=== PATIENT | female | born 1955 | race Caucasian/White ===

== ENCOUNTER 2016-08-29 11:08 | Inpatient (IN) | payer OTHER ==
[2016-08-29] MEDS ORDERED: IPRATROPIUM 0.5 MG/2.5 ML NEBU INHALATION STA (11:23)
[2016-08-29] MEDS ORDERED: ALBUTEROL NEBULIZED 2.5 MG/3 ML INHALATION STA (11:23)
[2016-08-29 12:07] LABS: Aty Lym Flag Slight; CH 31.4; CHCM 33.7; HCT 48.2 % (34.0-46.0); HDW 2.65; MCH 31.2 pg (25.0-35.0); MCHC 33.3 g/dL (31.0-37.0); MCV 93.6 fL (80.0-100.0); Mean Platelet Volume 6.7; RBC 5.14 m/uL (3.80-5.40); RDW 14.1 % (11.5-15.5); WBC 8.1 k/uL (3.8-10.6); WBC (Perox) 7.78
[2016-08-29 12:18] LABS: ALT 43 U/L (9-52); AST 46 U/L (14-36); Alkaline Phosphatase 92 U/L (38-126); Anion Gap 10 mmol/L; Blood Urea Nitrogen 13 mg/dL (7-17); Calcium 8.8 mg/dL (8.4-10.2); Carbon Dioxide 33 mmol/L (22-30); Chloride 91 mmol/L (98-107); Glucose 93 mg/dL (74-99); Magnesium 1.7 mg/dL (1.6-2.3); Non-African American GFR(MDRD) >60 (>60 ml/min/1.73 sqM); Potassium 4.7 mmol/L (3.5-5.1); Sodium 134 mmol/L (137-145); Total Bilirubin 0.6 mg/dL (0.2-1.3); Total Protein 7.1 g/dL (6.3-8.2)
[2016-08-29 12:19] LABS: INR 1.1 (<1.1); Partial Thromboplastin Time 26.4 sec (22.0-30.0); Prothrombin Time 11.4 sec (9.0-12.0)
--- NOTE | 2016-08-29 12:31 | ED ---
General Adult HPI - General Chief complaint: Shortness of Breath Stated complaint: low oxygen level Time Seen by Provider: 08/29/16 11:23 Source: patient, RN notes reviewed, old records reviewed Mode of arrival: wheelchair Limitations: no limitations - History of Present Illness Initial comments: This is a 60-year-old female here for evaluation of severe shortness of breath cough congestion runny nose and congestion nose, patient has a history of smoking. Patient severely short of breath. Patient states he was seen both at work and outpatient care setting earlier today for evaluation of this issue and was found to be significant short of breath, patient denies any recent fevers, has cough and congestion. Aai for smoking denies medical history. And without chest pain at this time. No sick contacts or travel history, no recent hospitalization - Related Data Home Medications Medication Instructions Recorded Confirmed Cetirizine HCl [Zyrtec] 10 mg PO DAILY 08/29/16 08/29/16 EPINEPHrine (Auto Inject) [Epipen] 0.3 mg IM ONCE PRN 08/29/16 08/29/16 guaiFENesin-DM 100-10MG/5ML 5 ml PO Q8H PRN 08/29/16 08/29/16 [Robitussin DM] Allergies Allergy/AdvReac Type Severity Reaction Status Date / Time aspirin Allergy Anaphylaxis Verified 08/29/16 12:00 Review of Systems ROS Statement: Those systems with pertinent positive or pertinent negative responses have been documented in the HPI. ROS Other: All systems not noted in ROS Statement are negative. Past Medical History Additional Past Medical History / Comment(s): seasonal allergies History of Any Multi-Drug Resistant Organisms: None Reported Past Surgical History: Appendectomy, Cholecystectomy, Hysterectomy, Tonsillectomy Additional Past Surgical History / Comment(s): pelvic fusion Past Psychological History: No Psychological Hx Reported Smoking Status: Current every day smoker Past Alcohol Use History: Occasional Past Drug Use History: None Reported General Exam Limitations: no limitations General appearance: alert, anxious, in distress, cachectic Head exam: Present: atraumatic, normocephalic, normal inspection Eye exam: Present: normal appearance, PERRL, EOMI. Absent: scleral icterus, conjunctival injection, periorbital swelling ENT exam: Present: mucous membranes dry, mucous membranes moist Neck exam: Present: normal inspection. Absent: tenderness, meningismus, lymphadenopathy Respiratory exam: Present: normal lung sounds bilaterally, respiratory distress , wheezes, accessory muscle use, decreased breath sounds, prolonged expiratory. Absent: rales, rhonchi, stridor Cardiovascular Exam: Present: regular rate, normal rhythm, normal heart sounds. Absent: systolic murmur, diastolic murmur, rubs, gallop, clicks GI/Abdominal exam: Present: soft, normal bowel sounds. Absent: distended, tenderness, guarding, rebound, rigid Extremities exam: Present: normal inspection, full ROM, normal capillary refill. Absent: tenderness, pedal edema, joint swelling, calf tenderness Back exam: Present: normal inspection Neurological exam: Present: alert, oriented X3, CN II-XII intact Psychiatric exam: Present: normal affect, normal mood Skin exam: Present: warm, dry, intact, normal color. Absent: rash Course Vital Signs 08/29/16 08/29/16 08/29/16 11:14 11:45 12:06 Temperature 98.3 F Pulse Rate 85 87 Respiratory 16 18 Rate Blood Pressure 148/77 O2 Sat by Pulse 74 L 91 L Oximetry 08/29/16 08/29/16 08/29/16 12:23 12:57 12:59 Temperature Pulse Rate 82 92 80 Respiratory 22 Rate Blood Pressure 158/82 O2 Sat by Pulse 92 L Oximetry - Reevaluation(s) Reevaluation #1: 08/29/16 12:43 Patient was profoundly hard toxemic on arrival, improving with oxygen and prolonged breathing treatment EKG Findings - EKG Comments: EKG Findings:: EKG shows sinus rhythm rate of 84, IN 152, QRS 126, QTc 479 Medical Decision Making - Medical Decision Making 60 female deer preventions through shortness of breath, patient has long history of smoking no diagnosis of asthma or COPD, patient having severe COPD exacerbation at this time with hypoxia, patient also having a breast for infection signs and symptoms of sinusitis. Patient will be admitted for IV steroids, breathing treatments and resuscitation. Monitoring of pulse ox - Lab Data Result diagrams: 08/29/16 11:35 08/29/16 11:35 Lab Results 08/29/16 08/29/16 08/29/16 Range/Units 11:35 11:35 11:35 WBC 8.1 (3.8-10.6) k/uL RBC 5.14 (3.80-5.40) m/uL Hgb 16.0 (11.4-16.0) gm/dL Hct 48.2 H (34.0-46.0) % MCV 93.6 (80.0-100.0) fL MCH 31.2 (25.0-35.0) pg MCHC 33.3 (31.0-37.0) g/dL RDW 14.1 (11.5-15.5) % Plt Count 271 (150-450) k/uL Neutrophils % (Manual) 54.0 % Band Neutrophils % 9.0 % Lymphocytes % (Manual) 22.0 % Monocytes % (Manual) 15.0 % Neutrophils # (Manual) 5.1 (1.3-7.7) k/uL Lymphocytes # (Manual) 1.8 (1.0-4.8) k/uL Monocytes # (Manual) 1.2 H (0-1.0) k/uL Nucleated RBCs 0 (0-0) /100 WBC Manual Slide Review Performed Toxic Granulation Present Poikilocytosis (manual Present PT (9.0-12.0) sec INR (<1.1) APTT (22.0-30.0) sec D-Dimer (<0.60) mg/L FEU Methemoglobin (0.0-1.5) % Sodium 134 L (137-145) mmol/L Potassium 4.7 (3.5-5.1) mmol/L Chloride 91 L (98-107) mmol/L Carbon Dioxide 33 H (22-30) mmol/L Anion Gap 10 mmol/L BUN 13 (7-17) mg/dL Creatinine 0.51 L (0.52-1.04) mg/dL Est GFR (MDRD) Af Amer >60 (>60 ml/min/1.73 sqM) Est GFR (MDRD) Non-Af >60 (>60 ml/min/1.73 sqM) Glucose 93 (74-99) mg/dL Plasma Lactic Acid Aaron (0.7-2.0) mmol/L Calcium 8.8 (8.4-10.2) mg/dL Magnesium 1.7 (1.6-2.3) mg/dL Total Bilirubin 0.6 (0.2-1.3) mg/dL AST 46 H (14-36) U/L ALT 43 (9-52) U/L Alkaline Phosphatase 92 (38-126) U/L Total Creatine Kinase 83 (30-135) U/L CK-MB (CK-2) 4.9 H* (0.0-2.4) ng/mL CK-MB (CK-2) Rel Index 5.9 Troponin I 0.027 (0.000-0.034) ng/mL NT-Pro-B Natriuret Pep pg/mL Total Protein 7.1 (6.3-8.2) g/dL Albumin 3.9 (3.5-5.0) g/dL 08/29/16 08/29/16 08/29/16 Range/Units 11:35 11:35 11:35 WBC (3.8-10.6) k/uL RBC (3.80-5.40) m/uL Hgb (11.4-16.0) gm/dL Hct (34.0-46.0) % MCV (80.0-100.0) fL MCH (25.0-35.0) pg MCHC (31.0-37.0) g/dL RDW (11.5-15.5) % Plt Count (150-450) k/uL Neutrophils % (Manual) % Band Neutrophils % % Lymphocytes % (Manual) % Monocytes % (Manual) % Neutrophils # (Manual) (1.3-7.7) k/uL Lymphocytes # (Manual) (1.0-4.8) k/uL Monocytes # (Manual) (0-1.0) k/uL Nucleated RBCs (0-0) /100 WBC Manual Slide Review Toxic Granulation Poikilocytosis (manual PT 11.4 (9.0-12.0) sec INR 1.1 (<1.1) APTT 26.4 (22.0-30.0) sec D-Dimer 0.33 (<0.60) mg/L FEU Methemoglobin (0.0-1.5) % Sodium (137-145) mmol/L Potassium (3.5-5.1) mmol/L Chloride (98-107) mmol/L Carbon Dioxide (22-30) mmol/L Anion Gap mmol/L BUN (7-17) mg/dL Creatinine (0.52-1.04) mg/dL Est GFR (MDRD) Af Amer (>60 ml/min/1.73 sqM) Est GFR (MDRD) Non-Af (>60 ml/min/1.73 sqM) Glucose (74-99) mg/dL Plasma Lactic Acid Aaron 1.1 (0.7-2.0) mmol/L Calcium (8.4-10.2) mg/dL Magnesium (1.6-2.3) mg/dL Total Bilirubin (0.2-1.3) mg/dL AST (14-36) U/L ALT (9-52) U/L Alkaline Phosphatase (38-126) U/L Total Creatine Kinase (30-135) U/L CK-MB (CK-2) (0.0-2.4) ng/mL CK-MB (CK-2) Rel Index Troponin I (0.000-0.034) ng/mL NT-Pro-B Natriuret Pep 1440 pg/mL Total Protein (6.3-8.2) g/dL Albumin (3.5-5.0) g/dL 08/29/16 Range/Units 12:10 WBC (3.8-10.6) k/uL RBC (3.80-5.40) m/uL Hgb (11.4-16.0) gm/dL Hct (34.0-46.0) % MCV (80.0-100.0) fL MCH (25.0-35.0) pg MCHC (31.0-37.0) g/dL RDW (11.5-15.5) % Plt Count (150-450) k/uL Neutrophils % (Manual) % Band Neutrophils % % Lymphocytes % (Manual) % Monocytes % (Manual) % Neutrophils # (Manual) (1.3-7.7) k/uL Lymphocytes # (Manual) (1.0-4.8) k/uL Monocytes # (Manual) (0-1.0) k/uL Nucleated RBCs (0-0) /100 WBC Manual Slide Review Toxic Granulation Poikilocytosis (manual PT (9.0-12.0) sec INR (<1.1) APTT (22.0-30.0) sec D-Dimer (<0.60) mg/L FEU Methemoglobin 0.5 (0.0-1.5) % Sodium (137-145) mmol/L Potassium (3.5-5.1) mmol/L Chloride (98-107) mmol/L Carbon Dioxide (22-30) mmol/L Anion Gap mmol/L BUN (7-17) mg/dL Creatinine (0.52-1.04) mg/dL Est GFR (MDRD) Af Amer (>60 ml/min/1.73 sqM) Est GFR (MDRD) Non-Af (>60 ml/min/1.73 sqM) Glucose (74-99) mg/dL Plasma Lactic Acid Aaron (0.7-2.0) mmol/L Calcium (8.4-10.2) mg/dL Magnesium (1.6-2.3) mg/dL Total Bilirubin (0.2-1.3) mg/dL AST (14-36) U/L ALT (9-52) U/L Alkaline Phosphatase (38-126) U/L Total Creatine Kinase (30-135) U/L CK-MB (CK-2) (0.0-2.4) ng/mL CK-MB (CK-2) Rel Index Troponin I (0.000-0.034) ng/mL NT-Pro-B Natriuret Pep pg/mL Total Protein (6.3-8.2) g/dL Albumin (3.5-5.0) g/dL Critical Care Time Critical Care Time: Yes Total Critical Care Time: 31 Disposition Clinical Impression: Acute exacerbation of chronic obstructive airways disease, Hypoxia, Community acquired pneumonia Disposition: ADMITTED IP TO THIS HOSP Condition: Fair
[2016-08-29] MEDS ORDERED: methylPREDNISolone SOD SUCCI 125 MG/2 ML VIAL IV STA (12:41)
[2016-08-29 12:43] LABS: Add Differential Manual Differential
[2016-08-29 12:45] LABS: Manual Review Performed; Nucleated Red Blood Cells 0 /100 WBC (0-0); Total Cells Counted 100
[2016-08-29 12:46] LABS: Toxic Granulation Present; Troponin I 0.027 ng/mL (0.000-0.034)
[2016-08-29] MEDS: SODIUM CHLORIDE 0.9% 1,000 ML IV SCH (12:55)
[2016-08-29 13:00] LABS: Creatine Kinase MB 4.9 ng/mL (0.0-2.4)
--- NOTE | 2016-08-29 13:17 | XR ---
EXAMINATION TYPE: XR chest 2V DATE OF EXAM: 08/29/2016 1:05 PM COMPARISON: NONE TECHNIQUE: PA and lateral views submitted. HISTORY: difficulty breathing FINDINGS: The lungs are clear and there is no pneumothorax, pleural effusion, or focal pneumonia. Mild cardiom egaly and interstitial pattern noted. Subsegmental linear changes at the right lung base. Hyperinflat ion suggests COPD. Degenerative change of the spine noted. Curvature of the spine noted. IMPRESSION: 1. COPD with central interstitial pattern. Correlate for venous congestion versus interstitial pneumo nitis or atypical pneumonia. 2. Right basilar subsegmental atelectasis or early infiltrate..
[2016-08-29] MEDS ORDERED: AZITHROMYCIN 500 MG in SODIUM CHLORIDE 0.9% 250 ML IVPB STA (13:27)
[2016-08-29] MEDS ORDERED: LORazepam 2 MG/ML SYRINGE IV PRN (14:58)
[2016-08-29] MEDS ORDERED: HYDROmorphone 1 MG/ML 1 ML SYRINGE IVP PRN (15:24)
[2016-08-29] MEDS ORDERED: TEMAZEPAM 15 MG CAP PO PRN (15:24)
[2016-08-29] MEDS: PANTOPRAZOLE 40 MG TABLET PO SCH (16:02)
[2016-08-29] MEDS: NICOTINE 21MG/24HR PATCH TRANSDERM SCH (16:02)
[2016-08-29 17:10] LABS: Glucose,Whole Blood 196 mg/dL (75-99)
[2016-08-29] MEDS: IPRATROPIUM-ALBUTEROL 3 ML NEB INHALATION SCH ×2 (17:27→20:31)
[2016-08-29] MEDS: methylPREDNISolone SOD SUCCI 125 MG/2 ML VIAL IV SCH ×2 (18:09→23:06)
[2016-08-29] MEDS: INSULIN LISPRO (humaLOG) 300 UNIT/3 ML VIAL SQ SCH ×2 (18:09→21:51)
--- NOTE | 2016-08-29 18:10 | HP ---
DATE OF ADMISSION: 08/29/2016 CHIEF COMPLAINTS: Shortness of breath and cough and sputum. HISTORY OF PRESENT ILLNESS: This 60-year-old woman with a past medical history of seasonal allergies, history of a work-related accident, history of appendectomy, hysterectomy, history of pelvic fusion, history of nicotine dependence, history of ethanol, according to the family was not being followed by any primary physician in the outpatient setting. The patient was not feeling well over the past several days, with increasing cough and congestion. [facility]. Because of lack of improvement, patient came to [facility]. Bilateral pneumonia was suspected. On evaluation she was found to be hypoxic with features of hypoxic respiratory failure. Pulse ox was found to be 94% on room air. Patient was admitted for further evaluation and treatment. Patient is on partial non-rebreather at this time. There is no history of any fever, rigor, or chills. No history of any headache, loss of consciousness, seizures. PAST MEDICAL HISTORY: 1. History of seasonal allergies. 2. Appendectomy. 3. Hysterectomy. 4. History of nicotine dependence. 5. History of pelvic fusion. Medications prior to admission include: 1. Guaifenesin 5 mL p.o. q.8 p.r.n. 2. Epinephrine 0.3 p.r.n. 3. Zyrtec 10 mg p.o. daily. ALLERGIES: ASPIRIN. FAMILY HISTORY: History of diabetes mellitus and heart problems in the family. SOCIAL HISTORY: History of smoking. History of alcohol intake, as mentioned earlier; quit recently, according to the family. REVIEW OF SYSTEMS: ENT: No diminished hearing. No diminished vision. CARDIOVASCULAR SYSTEM: As mentioned earlier. RESPIRATORY SYSTEM: As mentioned earlier. GI: No nausea. : No dysuria. NERVOUS SYSTEM: No numbness or weakness. ALLERGY/IMMUNOLOGY: No asthma, hayfever. MUSCULOSKELETAL: As mentioned earlier. HEMATOLOGY/ONCOLOGY: No history of anemia. ENDOCRINE: No history of diabetes, hypothyroidism. CONSTITUTIONAL: As mentioned earlier. DERMATOLOGY: Negative. RHEUMATOLOGY: Negative. PSYCHIATRY: As mentioned earlier. PHYSICAL EXAMINATION: Patient is alert and oriented x3. Pulse is 87. Blood pressure is 148/77, respiration 16, temperature 98.3, pulse ox 75% on room air, improved to 91% on 4 L. HEENT: Conjunctivae normal. Oral mucosa moist. NECK: No jugular venous distention. No carotid bruit. No lymph node enlargement. CARDIOVASCULAR SYSTEM: S1, S2 muffled. No S3. No S4. RESPIRATORY: Breath sounds diminished at the bases. Bilateral scattered rhonchi and a few crackles. Expiratory wheezing and prolongation also present. ABDOMEN: Soft, nontender. No mass palpable. LEGS: No edema. No swelling. NERVOUS SYSTEM: Higher functions as mentioned earlier. Moves all 4 limbs. No focal motor or sensory deficit. LYMPHATICS: No lymph node palpable in neck, axillae or groin. SKIN: No ulcer, rash, bleeding. Chest x-ray reviewed personally. LABS: CBC noted. Sodium 134. CK-MB is 49. NT-proBNP is 1440. ASSESSMENT: 1. Chronic obstructive pulmonary disease, acute exacerbation, with acute bilateral pneumonia, possibly interstitial bilateral pneumonia with acute hypoxic hypercarbic respiratory failure with possible sepsis, present on admission, on non-rebreather mask. 2. Increased NT-proBNP. 3. Rule out congestive heart failure. 4. History of ethanol. 5. History of nicotine dependence. 6. Hyponatremia. 7. Increased carbon dioxide. 8. History of seasonal allergies. 9. History of degenerative joint disease. 10. History of pelvic fusion. RECOMMENDATIONS AND DISCUSSION: In this 60-year-old woman who presented with multiple complex medical issues, we will monitor the patient closely. I would recommend broad-spectrum IV antibiotics, bronchodilators, DVT prophylaxis, empiric antibiotics, CIWA protocol, IV steroids. Monitor blood sugars closely. Closely follow with Dr. Figueredo. Prognosis guarded because of multiple complex medical issues. Smoking and ethanol cessation has been recommended. Discussed with the family, who understands and agrees. Further recommendations to follow. I would also recommend that the patient follow up with a primary physician closely. Patient understands.
[2016-08-29 21:31] LABS: Glucose,Whole Blood 114 mg/dL (75-99)
[2016-08-29 22:02] LABS: Hemoglobin A1C 5.9 % (4.2-6.1)
[2016-08-30] MEDS: SODIUM CHLORIDE 0.9% 1,000 ML IV SCH (06:10)
[2016-08-30] MEDS: methylPREDNISolone SOD SUCCI 125 MG/2 ML VIAL IV SCH ×3 (06:10→17:28)
[2016-08-30 07:09] LABS: Glucose,Whole Blood 136 mg/dL (75-99)
[2016-08-30 07:50] LABS: Basophils # (A) 0.1 k/uL (0-0.2); Basophils % (A) 1 %; CHCM 32.5; Eosinophils % (A) 0 %; HCT 48.2 % (34.0-46.0); HDW 2.62; HGB 15.5 gm/dL (11.4-16.0); Luc # (Auto) 0.11; Luc % (Auto) 2; Lymphocytes # (A) 0.7 k/uL (1.0-4.8); Lymphocytes % (A) 12 %; MCH 30.9 pg (25.0-35.0); MCHC 32.2 g/dL (31.0-37.0); Mean Platelet Volume 7.2; Monocytes # (A) 0.3 k/uL (0-1.0); Monocytes % (A) 5 %; Neutrophils # (A) 4.6 k/uL (1.3-7.7); Neutrophils % (A) 80 %; RBC 5.02 m/uL (3.80-5.40); RDW 14.2 % (11.5-15.5); WBC 5.7 k/uL (3.8-10.6)
[2016-08-30 08:02] LABS: Anion Gap 8 mmol/L; Blood Urea Nitrogen 10 mg/dL (7-17); Carbon Dioxide 33 mmol/L (22-30); Chloride 97 mmol/L (98-107); Glucose 122 mg/dL (74-99); Non-African American GFR(MDRD) >60 (>60 ml/min/1.73 sqM); Potassium 5.6 mmol/L (3.5-5.1); Sodium 138 mmol/L (137-145)
[2016-08-30] MEDS: INSULIN LISPRO (humaLOG) 300 UNIT/3 ML VIAL SQ SCH ×4 (08:18→21:25)
[2016-08-30] MEDS: PANTOPRAZOLE 40 MG TABLET PO SCH (08:19)
[2016-08-30] MEDS: ENOXAPARIN 40 MG/0.4 ML SYRINGE SQ SCH (08:19)
[2016-08-30] MEDS: NICOTINE 21MG/24HR PATCH TRANSDERM SCH (08:20)
[2016-08-30] MEDS: IPRATROPIUM-ALBUTEROL 3 ML NEB INHALATION SCH ×4 (08:47→19:37)
[2016-08-30] MEDS ORDERED: cefTRIAXone 1,000 MG in SODIUM CHLORIDE 0.9% 100 ML IVPB SCH (09:00)
[2016-08-30 11:30] VITALS: BMI 20.9
--- NOTE | 2016-08-30 11:40 | P.CNPUL ---
History of Present Illness Consult date: 08/30/16 Requesting physician: Soledad Estrada Reason for consult: abnormal CXR/CT Chief complaint: Shortness of breath, cough, congestion History of present illness: This is a very pleasant 60-year-old female patient with no current primary care physician. She has a history of seasonal ALLERGIES. She also has chronic and ongoing nicotine addiction of greater than 40 years at 1 pack per day along with excessive alcohol intake. She has no prior diagnosis of COPD and has not been on any inhalers and she has not been seen by a director of financial aid in the past. She presented here with a several day history of increasing shortness of breath , cough and congestion. She was seen in urgent care and treated without significant improvement and was presented here to the emergency room yesterday for the same. Her chest x-ray did reveal evidence of possible early infiltrate of the right lower lobe as well as evidence of chronic obstructive pulmonary disease, there is also some mild pulmonary venous congestion. She was quite hypoxic with an O2 saturation of 74% on room air. She did require a nonrebreather mask and subsequent 15 L of high flow nasal cannula to maintain O2 saturations in the 90s. There is no leukocytosis. Her T-max was 99.3. Influenza screen was negative. ProBNP 1440. D-dimer 0.33. She has been initiated on ceftriaxone and azithromycin along with DuoNeb inhalations 4 times a day and when necessary. She was started on IV Solu-Medrol. She is seen today in consultation on the regular medical floor. She is awake and alert in no acute distress. She states she is breathing easier today as compared to yesterday. She is currently on 6 L of high flow nasal cannula to maintain O2 saturations in the 90s. She has a loose nonproductive cough. No chills or night sweats. Review of Systems 14 point review of systems was conducted. All negative other than as mentioned in HPI. Past Medical History Additional Past Medical History / Comment(s): seasonal allergies, past work related accident with fx pelvis with sx and fractures in R arm and R hand. History of Any Multi-Drug Resistant Organisms: None Reported Past Surgical History: Appendectomy, Hysterectomy Additional Past Surgical History / Comment(s): pelvic fusion-ledbetter and 11 screws , 5 D&Cs, inverted uterus with childbirth-hysterectomy. Past Psychological History: No Psychological Hx Reported Additional Psychological History / Comment(s): Pt resides with significant other. She uses no assistive device. She does not drive, her significant other or [id number] drive her. Smoking Status: Current every day smoker Past Alcohol Use History: Occasional Additional Past Alcohol Use History / Comment(s): Pt states she started smoking in 1968 and is a ppd smoker. She states she used to drink alcohol heavily in the past but now drinks occasionally. Past Drug Use History: None Reported - Past Family History Father Family Medical History: Diabetes Mellitus Additional Family Medical History / Comment(s): Heart problems. Mother Family Medical History: Chest Pain / Angina Additional Family Medical History / Comment(s): caratid artery dx, back problems. Medications and Allergies Home Medications Medication Instructions Recorded Confirmed Type Cetirizine HCl [Zyrtec] 10 mg PO DAILY 08/29/16 08/29/16 History EPINEPHrine (Auto Inject) [Epipen] 0.3 mg IM ONCE PRN 08/29/16 08/29/16 History guaiFENesin-DM 100-10MG/5ML 5 ml PO Q8H PRN 08/29/16 08/29/16 History [Robitussin DM] Allergies Allergy/AdvReac Type Severity Reaction Status Date / Time aspirin Allergy Anaphylaxis Verified 08/29/16 12:00 Physical Exam Vitals: Vital Signs Temp Pulse Pulse Resp BP BP Pulse Ox 08/30/16 07:00 98.8 F 83 24 141/88 93 L 08/30/16 02:29 141/87 08/29/16 23:00 97.9 F 88 20 91 L 08/29/16 20:45 87 08/29/16 20:33 87 08/29/16 17:26 93 L 08/29/16 15:34 98.5 F 102 H 20 154/74 97 08/29/16 14:25 102 H 20 08/29/16 13:50 99.0 F 92 24 143/87 83 L 08/29/16 12:59 80 08/29/16 12:57 92 22 158/82 92 L Intake and Output 08/29/16 08/30/16 08/30/16 22:59 06:59 14:59 Intake Total 200 720 Balance 200 720 Intake: IV 720 Sodium Chloride 0.9% 1, 720 000 ml @ 60 mls/hr IV . [id number] [facility] Rx#:[id number] Oral 200 Other: Voiding Method Toilet # Voids 3 GENERAL EXAM: Alert, active, comfortable in no apparent distress. HEAD: Normocephalic. EYES: Normal reaction of pupils, equal size. NOSE: Clear with pink turbinates. THROAT: No erythema or exudates. NECK: No masses, no JVD. CHEST: No chest wall deformity. LUNGS: Equal air entry with bilateral end expiratory wheeze, crackles in the right posterior base, diminished throughout. CVS: S1 and S2 normal with no audible mumurs, regular rhythm. ABDOMEN: No hepatosplenomegaly, normal bowel sounds, no guarding or rigidity. SPINE: No scoliosis or deformity SKIN: No rashes CENTRAL NERVOUS SYSTEM: No focal deficits, tone is normal in all 4 extremities. Extremities: There is no peripheral edema. No clubbing, no cyanosis. Peripheral pulses are intact. Results - Laboratory Findings CBC and BMP: 08/30/16 07:22 08/30/16 07:22 PT/INR, D-dimer PT 11.4 sec (9.0-12.0) 08/29/16 11:35 INR 1.1 (<1.1) 08/29/16 11:35 D-Dimer 0.33 mg/L FEU (<0.60) 08/29/16 11:35 Abnormal lab findings: Abnormal Labs 08/29/16 08/29/16 08/30/16 17:08 21:24 07:08 Hct Lymphocytes # Potassium Chloride Carbon Dioxide Glucose POC Glucose (mg/dL) 196 H 114 H 136 H 08/30/16 08/30/16 07:22 07:22 Hct 48.2 H Lymphocytes # 0.7 L Potassium 5.6 H Chloride 97 L Carbon Dioxide 33 H Glucose 122 H POC Glucose (mg/dL) - Diagnostic Findings Chest x-ray: image reviewed Assessment and Plan Plan: Impression: #1 Acute hypoxic respiratory failure secondary to an acute exacerbation of chronic obstructive pulmonary disease and possible acute exacerbation of diastolic congestive heart failure and possible early right lower lobe immunity acquired pneumonia. #2 Chronic and ongoing tobacco dependence. #3 History of seasonal environmental ALLERGIES. #4 History of alcohol abuse. Plan: The patient was seen and evaluated by Dr. Figueredo. Her chest x-ray and labs were reviewed. We will continue with her current medications including bronchodilators 4 times a day and when necessary. We will add Pulmicort inhalations twice a day. We'll continue with IV Solu-Medrol. She remains on antibiotics in the parents form of ceftriaxone and azithromycin. We will continue to titrate down the FiO2 while maintaining O2 saturations greater than 90%. We'll obtain a echocardiogram and possibly initiate some diuretics. She remains on Lovenox for DVT prophylaxis and Protonix for GI prophylaxis. She is educated regarding the importance of complete smoking cessation. A NicoDerm patch has been applied. She is also educated regarding the importance of alcohol cessation. The CIWA protocol remains in place. We will repeat her chest x-ray in the a.m. We'll continue to follow make further recommendations based on her clinical status. Time with Patient: Greater than 30
[2016-08-30] MEDS ORDERED: FUROSEMIDE 10 MG/ML 4 ML VIAL IV STA (11:45)
[2016-08-30] MEDS ORDERED: SODIUM POLYSTYRENE SULFONATE 15 GM/60 ML BOTTLE PO STA (12:04)
[2016-08-30] MEDS: AZITHROMYCIN 500 MG in SODIUM CHLORIDE 0.9% 250 ML IVPB SCH (12:05)
[2016-08-30 12:18] LABS: Glucose,Whole Blood 126 mg/dL (75-99)
[2016-08-30] MEDS: LORazepam 2 MG/ML SYRINGE IV PRN ×3 (13:54→21:23)
[2016-08-30] MEDS: HYDROcodone/APAP 5-325MG 1 EACH TAB PO PRN (13:55)
--- NOTE | 2016-08-30 15:11 | CT ---
EXAMINATION TYPE: CT chest wo con DATE OF EXAM: 08/30/2016 2:53 PM COMPARISON: Chest x-ray from yesterday HISTORY: COPD and ILD per order. Admitted for difficulty in breathing yesterday. CT DLP: 136.3 mGycm. Automated Exposure Control for Dose Reduction was Utilized. TECHNIQUE: CT scan of the thorax is performed without IV contrast. FINDINGS: LUNGS: There is background of mild to moderate diffuse emphysematous change most pronounced in the ap ices. There are ill-defined reticulonodular opacities in the bilateral lower lungs. No suspicious par enchymal nodule or mass is present bilaterally. No pleural effusion or pneumothorax is noted. No bron chiectasis is identified. There is some additional linear scarring or atelectasis in both lung bases posteriorly. No suspicious peripheral reticulation or fibrosis is clearly seen. Some linear scarring anteriorly in the right middle lobe is noted near axial image 35. MEDIASTINUM: Lack of IV contrast is noted to limit evaluation for mediastinal and especially hilar ad enopathy. There are no definitive greater than 1 cm hilar or mediastinal lymph nodes. Heart size is u pper limits of normal. No significant pericardial effusion is seen. Coronary artery calcification is noted. There is mild to moderate calcified atherosclerotic change of the aorta. OTHER: Slight S-shaped scoliotic curvature is present. IMPRESSION: Mild underlying emphysematous change with bibasilar reticulonodular opacities worrisome f or acute infectious process differential includes hypersensitivity pneumonitis among the broad differ ential, clinical correlation advised.
[2016-08-30 17:25] LABS: Glucose,Whole Blood 206 mg/dL (75-99)
[2016-08-30] MEDS: BUDESONIDE 1 MG/2 ML NEBU INHALATION SCH (19:37)
[2016-08-30 20:57] LABS: Glucose,Whole Blood 169 mg/dL (75-99)
[2016-08-31] MEDS: MONTELUKAST 10 MG TAB PO SCH ×2 (01:54→20:12)
[2016-08-31] MEDS: methylPREDNISolone SOD SUCCI 125 MG/2 ML VIAL IV SCH ×4 (01:54→17:54)
[2016-08-31] MEDS: SODIUM CHLORIDE 0.9% 1,000 ML IV SCH ×2 (01:56→17:59)
[2016-08-31 07:27] LABS: Glucose,Whole Blood 143 mg/dL (75-99)
[2016-08-31] MEDS: INSULIN LISPRO (humaLOG) 300 UNIT/3 ML VIAL SQ SCH ×4 (07:55→21:27)
[2016-08-31] MEDS: ENOXAPARIN 40 MG/0.4 ML SYRINGE SQ SCH (07:55)
[2016-08-31] MEDS: PANTOPRAZOLE 40 MG TABLET PO SCH (07:55)
[2016-08-31] MEDS: NICOTINE 21MG/24HR PATCH TRANSDERM SCH (07:56)
[2016-08-31] MEDS: IPRATROPIUM-ALBUTEROL 3 ML NEB INHALATION SCH ×4 (08:00→20:04)
[2016-08-31] MEDS: BUDESONIDE 1 MG/2 ML NEBU INHALATION SCH ×2 (08:00→20:04)
[2016-08-31] MEDS: HYDROcodone/APAP 5-325MG 1 EACH TAB PO PRN ×2 (08:31→21:47)
[2016-08-31] MEDS: LORazepam 2 MG/ML SYRINGE IV PRN ×3 (08:32→21:53)
--- NOTE | 2016-08-31 09:21 | PN ---
DATE OF SERVICE: 08/30/2016 This is a 60-year-old woman who was admitted with COPD, acute exacerbation with acute bilateral pneumonia, possibly also had interstitial pneumonia. Seen and evaluated the patient with the nurse practitioner. Please refer to the nurse practitioner's notes and impression document as ascribed for further information. A chest CT has been ordered by Pulmonary and further recommendations to follow.
[2016-08-31 09:39] LABS: Basophils % (A) 0 %; CH 31.2; CHCM 32.1; Eosinophils % (A) 0 %; HCT 46.3 % (34.0-46.0); HGB 14.8 gm/dL (11.4-16.0); Luc # (Auto) 0.05; Luc % (Auto) 1; Lymphocytes # (A) 0.4 k/uL (1.0-4.8); Lymphocytes % (A) 4 %; MCH 31.3 pg (25.0-35.0); MCV 97.8 fL (80.0-100.0); Mean Platelet Volume 7.4; Monocytes # (A) 0.3 k/uL (0-1.0); Monocytes % (A) 3 %; Neutrophils # (A) 9.7 k/uL (1.3-7.7); Neutrophils % (A) 93 %; RBC 4.73 m/uL (3.80-5.40); RDW 14.2 % (11.5-15.5); WBC 10.4 k/uL (3.8-10.6); WBC (Perox) 11.21
[2016-08-31 09:53] LABS: Anion Gap 10 mmol/L; Blood Urea Nitrogen 16 mg/dL (7-17); Calcium 8.8 mg/dL (8.4-10.2); Carbon Dioxide 34 mmol/L (22-30); Chloride 97 mmol/L (98-107); Glucose 225 mg/dL (74-99); Non-African American GFR(MDRD) >60 (>60 ml/min/1.73 sqM); Potassium 3.8 mmol/L (3.5-5.1); Sodium 141 mmol/L (137-145)
[2016-08-31] MEDS: AZITHROMYCIN 500 MG in SODIUM CHLORIDE 0.9% 250 ML IVPB SCH (11:08)
[2016-08-31 11:50] LABS: Glucose,Whole Blood 186 mg/dL (75-99)
[2016-08-31] MEDS: guaiFENesin-DM 100-10MG/5ML 10 ML CUP PO PRN ×2 (11:50→18:31)
--- NOTE | 2016-08-31 11:53 | ECHOF ---
Referral Reason:CHF MEASUREMENTS -------- HEIGHT: 129.5 cm WEIGHT: 47.2 kg BP: IVSd: 1.2 cm (0.6 - 1.1) LVIDd: 3.7 cm (3.9 - 5.3) LVPWd: 1.1 cm (0.6 - 1.1) IVSs: 1.4 cm LVIDs: 2.3 cm LVPWs: 1.4 cm LAESV Index (A-L): 28.11 ml/m Ao Diam: 2.8 cm (2.0 - 3.7) AV Cusp: 1.5 cm (1.5 - 2.6) LA Diam: 3.2 cm (2.7 - 3.8) MV EXCURSION: 17.354 mm (> 18.000) MV EF SLOPE: 106 mm/s (70 - 150) EPSS: 0.1 cm MV E Jackson: 0.98 m/s MV DecT: 217 ms MV A Jackson: 0.85 m/s MV E/A Ratio: 1.15 AV maxP.56 mmHg AV meanP.82 mmHg RAP: 5.00 mmHg RVSP: 31.97 mmHg FINDINGS -------- Sinus rhythm with extra systolic beats. This was a technically good study. The left ventricular size is normal. There is mild concentric left ventricular hypertrophy. Overall left ventricular systolic function is normal with, an EF between 55 - 60 %. The right ventricle is normal in size and function. LA is midly dilated 29-33ml/m2. The right atrium is normal in size. Aneurysmal Interatrial septum. Aortic valve is trileaflet and is mildly thickened. There is mild aortic stenosis present. Peak/mean gradient across the Aortic Valve is 19.56mmHg / 10.82mmHg. The mitral valve is normal. Moderate mitral regurgitation is present. [id number] tricuspid regurgitation present. The right ventricular systolic pressure, as measured by Doppler, is 31.97mmHg. Trace/mild (physiologic) pulmonic regurgitation. The aortic root size is normal. There is a trivial pericardial effusion present. CONCLUSIONS -------- 1. Sinus rhythm with extra systolic beats. 2. The right ventricular systolic pressure, as measured by Doppler, is 31.97mmHg. 3. Trace/mild (physiologic) pulmonic regurgitation. 4. The aortic root size is normal. 5. There is a trivial pericardial effusion present. 6. This was a technically good study. 7. There is mild concentric left ventricular hypertrophy. 8. Overall left ventricular systolic function is normal with, an EF between 55 - 60 %. 9. LA is midly dilated 29-33ml/m2. 10. Aneurysmal Interatrial septum. 11. Aortic valve is trileaflet and is mildly thickened. 12. There is mild aortic stenosis present. 13. Peak/mean gradient across the Aortic Valve is 19.56mmHg / 10.82mmHg. MANUFACTURING EXECUTIVE: Corine Morris RDCS
--- NOTE | 2016-08-31 14:06 | P.PN ---
Subjective Principal diagnosis: Acute COPD exacerbation This is a very pleasant 60-year-old female patient with no current primary care physician. She has a history of seasonal ALLERGIES. She also has chronic and ongoing nicotine addiction of greater than 40 years at 1 pack per day along with excessive alcohol intake. She has no prior diagnosis of COPD and has not been on any inhalers and she has not been seen by a human services professional in the past. She presented here with a several day history of increasing shortness of breath , cough and congestion. She was seen in urgent care and treated without significant improvement and was presented here to the emergency room yesterday for the same. Her chest x-ray did reveal evidence of possible early infiltrate of the right lower lobe as well as evidence of chronic obstructive pulmonary disease, there is also some mild pulmonary venous congestion. She was quite hypoxic with an O2 saturation of 74% on room air. She did require a nonrebreather mask and subsequent 15 L of high flow nasal cannula to maintain O2 saturations in the 90s. There is no leukocytosis. Her T-max was 99.3. Influenza screen was negative. ProBNP 1440. D-dimer 0.33. She has been initiated on ceftriaxone and azithromycin along with DuoNeb inhalations 4 times a day and when necessary. She was started on IV Solu-Medrol. She is seen today in consultation on the regular medical floor. She is awake and alert in no acute distress. She states she is breathing easier today as compared to yesterday. She is currently on 6 L of high flow nasal cannula to maintain O2 saturations in the 90s. She has a loose nonproductive cough. No chills or night sweats. The patient is seen again today 08/31/2016 in follow-up. She is awake and alert in no acute distress. She does have some level of anxiety and there are still concerns regarding possible delirium tremens. She has been given Ativan which seems to be helping. her breathing is slightly improved today as compared to yesterday. A computed tomography scan revealed mild underlying emphysema changes with bibasilar reticulonodular opacities worrisome for acute infectious process including hypersensitivity pneumonitis. She does continue to require 6 L of high flow nasal cannula to maintain O2 saturations in the 90s. She's been afebrile. No leukocytosis. Objective - Vital Signs Vital signs: Vital Signs Temp 98.0 F 08/31/16 07:00 Pulse 84 08/31/16 11:40 Resp 18 08/31/16 07:00 BP 167/100 08/31/16 07:00 Pulse Ox 94 L 08/31/16 07:00 Intake & Output 08/30/16 08/31/16 08/31/16 18:59 06:59 18:59 Intake Total 250 400 Balance 250 400 Weight 47.174 kg Intake: Intake, IV Titration 250 Amount Azithromycin 500 mg In 250 Sodium Chloride 0.9% 250 ml @ 125 mls/hr IVPB Q24H [facility] Rx#:[id number] Oral 400 Other: Voiding Method Toilet # Voids 1 # Bowel Movements 0 - Exam GENERAL EXAM: Alert, comfortable in no apparent distress. HEAD: Normocephalic. EYES: Normal reaction of pupils, equal size. NOSE: Clear with pink turbinates. THROAT: No erythema or exudates. NECK: No masses, no JVD. CHEST: No chest wall deformity. LUNGS: Equal air entry with bilateral wheeze, crackles in the posterior bases, diminished. CVS: S1 and S2 normal with no audible murmurs, regular rhythm. ABDOMEN: No hepatosplenomegaly, normal bowel sounds, no guarding or rigidity. SPINE: No scoliosis or deformity SKIN: No rashes CENTRAL NERVOUS SYSTEM: No focal deficits, tone is normal in all 4 extremities. Extremities: There is no significant peripheral edema. No clubbing, no cyanosis. Peripheral pulses are intact. - Labs CBC & Chem 7: 08/31/16 09:13 08/31/16 09:13 Labs: Abnormal Lab Results - Last 24 Hours (Table) 08/30/16 08/30/16 08/31/16 Range/Units 17:20 20:53 07:25 Hct (34.0-46.0) % Neutrophils # (1.3-7.7) k/uL Lymphocytes # (1.0-4.8) k/uL Chloride (98-107) mmol/L Carbon Dioxide (22-30) mmol/L Creatinine (0.52-1.04) mg/dL Glucose (74-99) mg/dL POC Glucose (mg/dL) 206 H 169 H 143 H (75-99) mg/dL 08/31/16 08/31/16 08/31/16 Range/Units 09:13 09:13 11:48 Hct 46.3 H (34.0-46.0) % Neutrophils # 9.7 H (1.3-7.7) k/uL Lymphocytes # 0.4 L (1.0-4.8) k/uL Chloride 97 L (98-107) mmol/L Carbon Dioxide 34 H (22-30) mmol/L Creatinine 0.46 L (0.52-1.04) mg/dL Glucose 225 H (74-99) mg/dL POC Glucose (mg/dL) 186 H (75-99) mg/dL Assessment and Plan Plan: Impression: #1 Acute hypoxic respiratory failure secondary to an acute exacerbation of chronic obstructive pulmonary disease and ill-defined reticulonodular opacities in the bilateral lower lungs. #2 Chronic and ongoing tobacco dependence. #3 History of seasonal environmental ALLERGIES. #4 History of alcohol abuse. Plan: The patient was seen and evaluated by Dr. Figueredo. Her computed tomography scan was reviewed. We will continue with her current medications including bronchodilators 4 times a day and when necessary. We will continue Pulmicort inhalations twice a day. We'll continue with IV Solu-Medrol. She remains on antibiotics in the parents form of ceftriaxone and azithromycin. We will continue to titrate down the FiO2 while maintaining O2 saturations greater than 90%. She remains on Lovenox for DVT prophylaxis and Protonix for GI prophylaxis. She is again educated regarding the importance of complete smoking cessation. A NicoDerm patch has been applied. She is again educated regarding the importance of alcohol cessation. The CIWA protocol remains in place. We'll continue to follow make further recommendations based on her clinical status.
[2016-08-31 16:56] LABS: Glucose,Whole Blood 99 mg/dL (75-99)
--- NOTE | 2016-08-31 17:09 | P.PN ---
Subjective date of service 08/30/2016. Progress note being dictated for Dr. Estrada. Interval history: This is a 60-year-old female in a with acute COPD exacerbation , acute bilateral pneumonia, interstitial pneumonia, and multiple other medical issues. Negative for influenza . Maintained on IV steroids, nebulized bronchodilators, antibiotics and CIWA scale . Breathing improving, weaned down to 6 L from a nonrebreather that patient required the night. Audible wheezing, mostly nonproductive cough, occasional clear sputum production .Evaluated by pulmonary and chest CT ordered. CT reporting mild underlying emphysematous changes with bibasilar reticulonodular opacities, possible acute infectious process, possible hypersensitivity pneumonitis. Currently without signs or symptoms of early DTs, no anxiety, no agitation. Hyperkalemic, potassium 5.6. Denies chest pain, palpitations or increasing shortness of breath. Objective - Vital Signs Vital signs: Vital Signs Temp 97.4 F L 08/30/16 15:00 Pulse 84 08/30/16 19:57 Resp 20 08/30/16 16:00 BP 126/80 08/30/16 15:00 Pulse Ox 90 L 08/30/16 15:00 Intake & Output 08/30/16 08/30/16 08/31/16 06:59 18:59 06:59 Intake Total 920 250 200 Balance 920 250 200 Weight 47.174 kg Intake: IV 720 Sodium Chloride 0.9% 1, 720 000 ml @ 60 mls/hr IV . [id number] [facility] Rx#:[id number] Intake, IV Titration 250 Amount Azithromycin 500 mg In 250 Sodium Chloride 0.9% 250 ml @ 125 mls/hr IVPB Q24H [facility] Rx#:[id number] Oral 200 200 Other: Voiding Method Toilet Toilet # Voids 3 1 # Bowel Movements 0 - Exam PHYSICAL EXAM: VITAL SIGNS: [As above] GENERAL: [Sitting up in bed, no acute distress] HEENT: [Pupils equal conjunctiva normal.] NECK: [Supple, no JVD] RESPIRATORY EFFORT:[Increased] LUNGS: [expiratory wheezes throughout, fine bibasilar crackles. CARDIOVASCULAR[regular S1 and S2 with no murmurs rubs or gallops, no edema GI: [Abdomen soft, nontender, positive bowel sounds. No guarding, no rigidity] PSYCH: [Alert and oriented -3, mood and affect normal.] NEURO: [No focal deficits, moves all 4 extremities, strength and sensation intact] - Labs CBC & Chem 7: 08/31/16 09:13 08/31/16 09:13 Labs: Abnormal Lab Results - Last 24 Hours (Table) 08/30/16 08/30/16 08/30/16 Range/Units 07:08 07:22 07:22 Hct 48.2 H (34.0-46.0) % Lymphocytes # 0.7 L (1.0-4.8) k/uL Potassium 5.6 H (3.5-5.1) mmol/L Chloride 97 L (98-107) mmol/L Carbon Dioxide 33 H (22-30) mmol/L Glucose 122 H (74-99) mg/dL POC Glucose (mg/dL) 136 H (75-99) mg/dL 08/30/16 08/30/16 08/30/16 Range/Units 12:16 17:20 20:53 Hct (34.0-46.0) % Lymphocytes # (1.0-4.8) k/uL Potassium (3.5-5.1) mmol/L Chloride (98-107) mmol/L Carbon Dioxide (22-30) mmol/L Glucose (74-99) mg/dL POC Glucose (mg/dL) 126 H 206 H 169 H (75-99) mg/dL Assessment and Plan Plan: 1. [Acute COPD exacerbation with acute bilateral pneumonia, possibly interstitial bilateral pneumonia]. 2. [Acute hypoxic, hypercarbic respiratory failure with possible sepsis, required nonrebreather mask on admission]. 3. [Increased BNP, rule out CHF]. 4. [History of EtOH abuse,]. 5. [Ongoing Nicotine dependence]. 6. [Hyponatremia]. 7. [Increased CO2]. 8. Degenerative joint disease 9. Hyperkalemia Plan: Continue on current medication regime , IV steroids, nebulized bronchodilators, antibiotics ,monitoring and symptomatic treatment. Kayexalate ordered for hyperkalemia. Close monitoring of Accu-Cheks. Maintain CIWA protocol. ETOH and smoking cessation readdressed. GI and DVT prophylaxis in place. Follow closely with pulmonary. Further recommendations to follow. The impression and plan of care has been dictated as directed. : I performed a H&P examination of this patient and discussed the same with the dictator. I agree with the dictator's note. Any additional findings/opinions/ etc. will be noted.
--- NOTE | 2016-08-31 17:22 | P.PN ---
Subjective date of service 08/31/2016. Progress note being dictated for Dr. Estrada. Interval history: This is a 60-year-old female in a with acute COPD exacerbation , acute bilateral pneumonia, interstitial pneumonia, and multiple other medical issues. Negative for influenza . Continues on IV steroids, nebulized bronchodilators, antibiotics and CIWA scale . Maintaining O2 sats in the mid 90s on 6 L nasal cannula. Sensorium worsened, confused, delirious, early DTs. Yesterday Hyperkalemic, received Kayexalate with current potassium within normal limits. Denies chest pain, palpitations or increasing shortness of breath. Afebrile, WBC within normal limits. Objective - Vital Signs Vital signs: Vital Signs Temp 98.4 F 08/31/16 15:00 Pulse 104 H 08/31/16 16:30 Resp 18 08/31/16 15:00 BP 154/86 08/31/16 15:00 Pulse Ox 97 08/31/16 16:19 Intake & Output 08/30/16 08/31/16 08/31/16 18:59 06:59 18:59 Intake Total 250 400 300 Balance 250 400 300 Weight 47.174 kg 47.174 kg Intake: Intake, IV Titration 250 300 Amount Azithromycin 500 mg In 250 250 Sodium Chloride 0.9% 250 ml @ 125 mls/hr IVPB Q24H [facility] Rx#:[id number] cefTRIAXone 1,000 mg In 50 Sodium Chloride 0.9% 50 ml @ 100 mls/hr IVPB DAILY [facility] Rx#:[id number] Oral 400 Other: Voiding Method Toilet Toilet # Voids 1 1 # Bowel Movements 0 0 - Exam PHYSICAL EXAM: VITAL SIGNS: [As above] GENERAL: [Sitting up in bed, delirious, confused] HEENT: [Pupils equal conjunctiva normal.] NECK: [Supple, no JVD] RESPIRATORY EFFORT:[Increased] LUNGS: [Scattered rhonchi with expiratory wheezes throughout, fine bibasilar crackles. CARDIOVASCULAR[regular S1 and S2 with no murmurs rubs or gallops, no edema GI: [Abdomen soft, nontender, positive bowel sounds. No organomegaly, No guarding, no rigidity] PSYCH: [Alert and oriented -1-2, mood and affect normal.] NEURO: [No focal deficits, moves all 4 extremities, strength and sensation intact] - Labs CBC & Chem 7: 08/31/16 09:13 08/31/16 09:13 Labs: Abnormal Lab Results - Last 24 Hours (Table) 08/30/16 08/30/16 08/31/16 Range/Units 17:20 20:53 07:25 Hct (34.0-46.0) % Neutrophils # (1.3-7.7) k/uL Lymphocytes # (1.0-4.8) k/uL Chloride (98-107) mmol/L Carbon Dioxide (22-30) mmol/L Creatinine (0.52-1.04) mg/dL Glucose (74-99) mg/dL POC Glucose (mg/dL) 206 H 169 H 143 H (75-99) mg/dL 08/31/16 08/31/16 08/31/16 Range/Units 09:13 09:13 11:48 Hct 46.3 H (34.0-46.0) % Neutrophils # 9.7 H (1.3-7.7) k/uL Lymphocytes # 0.4 L (1.0-4.8) k/uL Chloride 97 L (98-107) mmol/L Carbon Dioxide 34 H (22-30) mmol/L Creatinine 0.46 L (0.52-1.04) mg/dL Glucose 225 H (74-99) mg/dL POC Glucose (mg/dL) 186 H (75-99) mg/dL Assessment and Plan Plan: 1. [Acute COPD exacerbation with acute bilateral pneumonia, possibly interstitial bilateral pneumonia]. 2. [Acute hypoxic, hypercarbic respiratory failure with possible sepsis, required nonrebreather mask on admission]. 3. [Increased BNP, rule out CHF]. 4. [History of EtOH abuse,]. 5. [Ongoing Nicotine dependence]. 6. [Hyponatremia]. 7. [Increased CO2]. 8. Degenerative joint disease 9. Hyperkalemia, resolved 10. Early DTs, acute delirium, metabolic encephalopathy, multifactorial. Plan: Continue on current medication regime , IV steroids, nebulized bronchodilators, antibiotics ,monitoring and symptomatic treatment. Maintain CIWA protocol and close monitoring. Multivitamin, folic acid, thiamine added to med regime. Follow closely with pulmonary. Prognosis guarded given multiple complex medical issues. Further recommendations to follow. The impression and plan of care has been dictated as directed. : I performed a H&P examination of this patient and discussed the same with the dictator. I agree with the dictator's note. Any additional findings/opinions/ etc. will be noted.
[2016-08-31 20:58] LABS: Glucose,Whole Blood 192 mg/dL (75-99)
--- NOTE | 2016-08-31 23:26 | PN ---
DATE OF SERVICE: 08/31/2016 This 60-year-old woman who was admitted with COPD, acute exacerbation, also had acute hypoxic hypercarbic respiratory failure. Patient also is confused. She is delirious at this time. The patient has features of acute delirium tremens. A CT scan of the chest was also done per pulmonary recommendations; noted bibasilar reticulonodular opacities. Seen and evaluated the patient along with the nurse practitioner. Please refer to the nurse practitioner's notes and impressions documented as a scribe for further information. Past medical history reviewed. Review of systems could not be taken. The patient is confused. Current medications are noted: 1. Ativan per [facility] protocol. 2. [place] 5 mg q.6 p.r.n. 3. DuoNeb q.i.d. and p.r.n. 4. Zithromax. 5. Pulmicort 1 mg b.i.d. 6. Rocephin 1 gram daily. 7. Lovenox 40 mg subcutaneously. 8. Folic acid. 9. Robitussin. 10. Dilaudid. 11. Solu-Medrol 60 IV q.6. 12. Multivitamins 1 p.o. daily. 13. Habitrol 21. 14. Protonix. 15. Restoril. 16. Vitamin B1.
[2016-09-01] MEDS: methylPREDNISolone SOD SUCCI 125 MG/2 ML VIAL IV SCH ×5 (00:10→23:48)
[2016-09-01] MEDS: IPRATROPIUM-ALBUTEROL 3 ML NEB INHALATION SCH ×4 (07:03→20:15)
[2016-09-01] MEDS: BUDESONIDE 1 MG/2 ML NEBU INHALATION SCH ×2 (07:03→20:15)
[2016-09-01 07:19] LABS: Glucose,Whole Blood 107 mg/dL (75-99)
[2016-09-01] MEDS: NICOTINE 21MG/24HR PATCH TRANSDERM SCH (08:26)
[2016-09-01] MEDS: PANTOPRAZOLE 40 MG TABLET PO SCH (08:26)
[2016-09-01] MEDS: ENOXAPARIN 40 MG/0.4 ML SYRINGE SQ SCH ×2 (08:26→08:38)
[2016-09-01] MEDS: SODIUM CHLORIDE 0.9% 1,000 ML IV SCH ×2 (08:27→23:49)
[2016-09-01] MEDS: INSULIN LISPRO (humaLOG) 300 UNIT/3 ML VIAL SQ SCH ×4 (08:27→21:41)
[2016-09-01] MEDS: HYDROcodone/APAP 5-325MG 1 EACH TAB PO PRN (08:30)
[2016-09-01] MEDS: guaiFENesin-DM 100-10MG/5ML 10 ML CUP PO PRN (08:38)
[2016-09-01 09:45] LABS: Basophils % (A) 0 %; CH 30.5; Eosinophils % (A) 0 %; HCT 46.1 % (34.0-46.0); HDW 2.52; HGB 14.2 gm/dL (11.4-16.0); Hypochromasia Slight; Luc # (Auto) 0.02; Luc % (Auto) 0; Lymphocytes # (A) 0.5 k/uL (1.0-4.8); Lymphocytes % (A) 5 %; MCH 30.5 pg (25.0-35.0); MCHC 30.8 g/dL (31.0-37.0); MCV 99.1 fL (80.0-100.0); Mean Platelet Volume 6.4; Monocytes # (A) 0.2 k/uL (0-1.0); Monocytes % (A) 2 %; Neutrophils # (A) 8.6 k/uL (1.3-7.7); Neutrophils % (A) 93 %; RBC 4.66 m/uL (3.80-5.40); RDW 13.9 % (11.5-15.5); WBC 9.3 k/uL (3.8-10.6); WBC (Perox) 9.69
[2016-09-01 09:58] LABS: Anion Gap 8 mmol/L; Blood Urea Nitrogen 19 mg/dL (7-17); Calcium 8.8 mg/dL (8.4-10.2); Carbon Dioxide 33 mmol/L (22-30); Chloride 97 mmol/L (98-107); Glucose 174 mg/dL (74-99); Non-African American GFR(MDRD) >60 (>60 ml/min/1.73 sqM); Potassium 4.2 mmol/L (3.5-5.1); Sodium 138 mmol/L (137-145)
[2016-09-01] MEDS: LORazepam 2 MG/ML SYRINGE IV PRN ×2 (12:03→16:35)
[2016-09-01] MEDS: AZITHROMYCIN 500 MG TAB PO SCH (12:05)
[2016-09-01] MEDS: THIAMINE 100 MG TAB PO SCH (12:05)
[2016-09-01] MEDS: MULTIVITAMINS, THERA 1 EACH TAB PO SCH (12:05)
[2016-09-01] MEDS: FOLIC ACID 1 MG TAB PO SCH (12:05)
[2016-09-01 12:14] LABS: Glucose,Whole Blood 129 mg/dL (75-99)
--- NOTE | 2016-09-01 14:25 | P.PN ---
Subjective Principal diagnosis: Acute COPD exacerbation This is a very pleasant 60-year-old female patient with no current primary care physician. She has a history of seasonal ALLERGIES. She also has chronic and ongoing nicotine addiction of greater than 40 years at 1 pack per day along with excessive alcohol intake. She has no prior diagnosis of COPD and has not been on any inhalers and she has not been seen by a branding machine operator in the past. She presented here with a several day history of increasing shortness of breath , cough and congestion. She was seen in urgent care and treated without significant improvement and was presented here to the emergency room yesterday for the same. Her chest x-ray did reveal evidence of possible early infiltrate of the right lower lobe as well as evidence of chronic obstructive pulmonary disease, there is also some mild pulmonary venous congestion. She was quite hypoxic with an O2 saturation of 74% on room air. She did require a nonrebreather mask and subsequent 15 L of high flow nasal cannula to maintain O2 saturations in the 90s. There is no leukocytosis. Her T-max was 99.3. Influenza screen was negative. ProBNP 1440. D-dimer 0.33. She has been initiated on ceftriaxone and azithromycin along with DuoNeb inhalations 4 times a day and when necessary. She was started on IV Solu-Medrol. She is seen today in consultation on the regular medical floor. She is awake and alert in no acute distress. She states she is breathing easier today as compared to yesterday. She is currently on 6 L of high flow nasal cannula to maintain O2 saturations in the 90s. She has a loose nonproductive cough. No chills or night sweats. The patient is seen again today 08/31/2016 in follow-up. She is awake and alert in no acute distress. She does have some level of anxiety and there are still concerns regarding possible delirium tremens. She has been given Ativan which seems to be helping. her breathing is slightly improved today as compared to yesterday. A computed tomography scan revealed mild underlying emphysema changes with bibasilar reticulonodular opacities worrisome for acute infectious process including hypersensitivity pneumonitis. She does continue to require 8 L of high flow nasal cannula to maintain O2 saturations in the 90s. She's been afebrile. No leukocytosis. She is seen again today 09/01/2016 in follow-up. She is awake and alert in no acute distress. She is breathing better today as compared to yesterday. Not quite back to her baseline. She is still on 8 L of high flow nasal cannula to maintain O2 saturations in the low 90s. She will most likely need oxygen upon discharge. Objective - Vital Signs Vital signs: Vital Signs Temp 98.2 F 09/01/16 07:00 Pulse 96 09/01/16 11:12 Resp 18 09/01/16 08:00 BP 133/76 09/01/16 07:00 Pulse Ox 93 L 09/01/16 07:07 Intake & Output 08/31/16 09/01/16 09/01/16 18:59 06:59 18:59 Intake Total 300 240 Output Total 240 Balance 300 0 Weight 47.174 kg Intake: Intake, IV Titration 300 Amount Azithromycin 500 mg In 250 Sodium Chloride 0.9% 250 ml @ 125 mls/hr IVPB Q24H [facility] Rx#:[id number] cefTRIAXone 1,000 mg In 50 Sodium Chloride 0.9% 50 ml @ 100 mls/hr IVPB DAILY [facility] Rx#:[id number] Oral 240 Output: Urine 240 Other: Voiding Method Toilet # Voids 1 1 # Bowel Movements 0 0 - Exam GENERAL EXAM: Alert, comfortable in no apparent distress. HEAD: Normocephalic. EYES: Normal reaction of pupils, equal size. NOSE: Clear with pink turbinates. THROAT: No erythema or exudates. NECK: No masses, no JVD. CHEST: No chest wall deformity. LUNGS: Equal air entry with bilateral wheeze, crackles in the posterior bases, diminished. CVS: S1 and S2 normal with no audible murmurs, regular rhythm. ABDOMEN: No hepatosplenomegaly, normal bowel sounds, no guarding or rigidity. SPINE: No scoliosis or deformity SKIN: No rashes CENTRAL NERVOUS SYSTEM: No focal deficits, tone is normal in all 4 extremities. Extremities: There is no significant peripheral edema. No clubbing, no cyanosis. Peripheral pulses are intact. - Labs CBC & Chem 7: 09/01/16 08:42 09/01/16 08:42 Labs: Abnormal Lab Results - Last 24 Hours (Table) 08/31/16 09/01/16 09/01/16 Range/Units 20:57 07: 08:42 Hct 46.1 H (34.0-46.0) % MCHC 30.8 L (31.0-37.0) g/dL Neutrophils # 8.6 H (1.3-7.7) k/uL Lymphocytes # 0.5 L (1.0-4.8) k/uL Chloride (98-107) mmol/L Carbon Dioxide (22-30) mmol/L BUN (7-17) mg/dL Glucose (74-99) mg/dL POC Glucose (mg/dL) 192 H 107 H (75-99) mg/dL 09/01/16 09/01/16 Range/Units 08:42 12:12 Hct (34.0-46.0) % MCHC (31.0-37.0) g/dL Neutrophils # (1.3-7.7) k/uL Lymphocytes # (1.0-4.8) k/uL Chloride 97 L (98-107) mmol/L Carbon Dioxide 33 H (22-30) mmol/L BUN 19 H (7-17) mg/dL Glucose 174 H (74-99) mg/dL POC Glucose (mg/dL) 129 H (75-99) mg/dL Assessment and Plan Plan: Impression: #1 Acute hypoxic respiratory failure secondary to an acute exacerbation of chronic obstructive pulmonary disease and ill-defined reticulonodular opacities in the bilateral lower lungs. #2 Chronic and ongoing tobacco dependence. #3 History of seasonal environmental ALLERGIES. #4 History of alcohol abuse. Plan: The patient was seen and evaluated by Dr. Figueredo. We will continue with her current medications including bronchodilators 4 times a day and when necessary. We will continue Pulmicort inhalations twice a day. We'll continue with IV Solu-Medrol. She remains on antibiotics in the form of ceftriaxone and azithromycin. We will continue to titrate down the FiO2 while maintaining O2 saturations greater than 90%. Currently down to 6 L. She is again educated regarding the importance of complete smoking cessation. A NicoDerm patch has been applied. She is again educated regarding the importance of alcohol cessation. The CIWA protocol remains in place. We'll continue to follow make further recommendations based on her clinical status. The patient with a family benefit from outpatient workup including full pulmonary function testing to evaluate the severity of her COPD. Her daughter is at the bedside and verbalizes understanding and are agreeable to the plan.
--- NOTE | 2016-09-01 15:00 | P.PN ---
Subjective date of service 09/01/2016. Progress note being dictated for Dr. Estrada. Interval history: This is a 60-year-old female in a with acute COPD exacerbation , acute bilateral pneumonia, interstitial pneumonia, and multiple other medical issues. Negative for influenza . Maintained on IV steroids, nebulized bronchodilators, antibiotics and CIWA scale . Agitated, DTs. Continues to require high flow nasal cannula currently at 8 L to maintain O2 sats of 93% . Afebrile,WBC WNL. Denies chest pain, palpitations or increasing shortness of breath. Objective - Vital Signs Vital signs: Vital Signs Temp 98.2 F 09/01/16 07:00 Pulse 96 09/01/16 11:12 Resp 18 09/01/16 08:00 BP 133/76 09/01/16 07:00 Pulse Ox 93 L 09/01/16 07:07 Intake & Output 08/31/16 09/01/16 09/01/16 18:59 06:59 18:59 Intake Total 300 240 Output Total 240 Balance 300 0 Weight 47.174 kg Intake: Intake, IV Titration 300 Amount Azithromycin 500 mg In 250 Sodium Chloride 0.9% 250 ml @ 125 mls/hr IVPB Q24H [facility] Rx#:[id number] cefTRIAXone 1,000 mg In 50 Sodium Chloride 0.9% 50 ml @ 100 mls/hr IVPB DAILY [facility] Rx#:[id number] Oral 240 Output: Urine 240 Other: Voiding Method Toilet # Voids 1 1 # Bowel Movements 0 0 - Exam PHYSICAL EXAM: VITAL SIGNS: [As above] GENERAL: [Walking around in room, playing with nasal cannula attachment to wall , agitated, HEENT: [Pupils equal conjunctiva normal.] NECK: [Supple, no JVD] RESPIRATORY EFFORT:[Increased] LUNGS: [Scattered rhonchi with expiratory wheezes throughout, fine bibasilar crackles. CARDIOVASCULAR[regular S1 and S2 with no murmurs rubs or gallops, no edema GI: [Abdomen soft, nontender, positive bowel sounds. No organomegaly, No guarding, no rigidity] PSYCH: [Alert and oriented -2-3, mood and affect normal.] NEURO: [No focal deficits, moves all 4 extremities, strength and sensation intact] - Labs CBC & Chem 7: 09/01/16 08:42 09/01/16 08:42 Labs: Abnormal Lab Results - Last 24 Hours (Table) 08/31/16 09/01/16 09/01/16 Range/Units 20:57 07:17 08:42 Hct 46.1 H (34.0-46.0) % MCHC 30.8 L (31.0-37.0) g/dL Neutrophils # 8.6 H (1.3-7.7) k/uL Lymphocytes # 0.5 L (1.0-4.8) k/uL Chloride (98-107) mmol/L Carbon Dioxide (22-30) mmol/L BUN (7-17) mg/dL Glucose (74-99) mg/dL POC Glucose (mg/dL) 192 H 107 H (75-99) mg/dL 09/01/16 09/01/16 Range/Units 08:42 12:12 Hct (34.0-46.0) % MCHC (31.0-37.0) g/dL Neutrophils # (1.3-7.7) k/uL Lymphocytes # (1.0-4.8) k/uL Chloride 97 L (98-107) mmol/L Carbon Dioxide 33 H (22-30) mmol/L BUN 19 H (7-17) mg/dL Glucose 174 H (74-99) mg/dL POC Glucose (mg/dL) 129 H (75-99) mg/dL Assessment and Plan Plan: 1. [Acute COPD exacerbation with acute bilateral pneumonia, possibly interstitial bilateral pneumonia]. 2. [Acute hypoxic, hypercarbic respiratory failure with possible sepsis, required nonrebreather mask on admission]. 3. [Increased BNP, rule out CHF]. 4. [History of EtOH abuse,]. 5. [Ongoing Nicotine dependence]. 6. [Hyponatremia]. 7. [Increased CO2]. 8. Degenerative joint disease 9. Hyperkalemia, resolved 10. Early DTs, acute delirium, metabolic encephalopathy, multifactorial. Plan: Continue on current medication regime , IV steroids, nebulized bronchodilators, antibiotics ,monitoring and symptomatic treatment. Maintain CIWA protocol and close monitoring. Alcohol and smoking cessation reinforced. Follow closely with pulmonary. Prognosis guarded given multiple complex medical issues. Further recommendations to follow. The impression and plan of care has been dictated as directed. : I performed a H&P examination of this patient and discussed the same with the dictator. I agree with the dictator's note. Any additional findings/opinions/ etc. will be noted.
[2016-09-01 17:12] LABS: Glucose,Whole Blood 126 mg/dL (75-99)
[2016-09-01 21:32] LABS: Glucose,Whole Blood 206 mg/dL (75-99)
[2016-09-01] MEDS: MONTELUKAST 10 MG TAB PO SCH (21:41)
[2016-09-02] MEDS: methylPREDNISolone SOD SUCCI 125 MG/2 ML VIAL IV SCH ×4 (05:18→23:06)
[2016-09-02] MEDS: LORazepam 2 MG/ML SYRINGE IV PRN ×4 (06:58→20:58)
[2016-09-02 07:26] LABS: Glucose,Whole Blood 110 mg/dL (75-99)
--- NOTE | 2016-09-02 07:28 | PN ---
DATE OF SERVICE: 09/01/2016 This 60-year-old woman who was admitted with bilateral pneumonia also had significant EtOH withdrawal symptoms also. Seen and evaluated the patient along with the nurse practitioner. Please refer to the nurse practitioner notes and impression documented for further information. Continue to monitor. Prognosis guarded. Further recommendations to follow.
[2016-09-02] MEDS: INSULIN LISPRO (humaLOG) 300 UNIT/3 ML VIAL SQ SCH ×4 (07:49→21:04)
[2016-09-02] MEDS: NICOTINE 21MG/24HR PATCH TRANSDERM SCH (07:51)
[2016-09-02] MEDS: PANTOPRAZOLE 40 MG TABLET PO SCH (07:51)
[2016-09-02] MEDS: BUDESONIDE 1 MG/2 ML NEBU INHALATION SCH ×2 (08:04→19:39)
[2016-09-02] MEDS: IPRATROPIUM-ALBUTEROL 3 ML NEB INHALATION SCH ×4 (08:04→19:39)
[2016-09-02 08:18] LABS: Basophils % (A) 0 %; CH 30.7; CHCM 31.2; Eosinophils % (A) 0 %; HCT 46.1 % (34.0-46.0); HDW 2.53; HGB 14.6 gm/dL (11.4-16.0); Hypochromasia Slight; Luc # (Auto) 0.06; Luc % (Auto) 1; Lymphocytes # (A) 0.3 k/uL (1.0-4.8); Lymphocytes % (A) 4 %; MCH 31.4 pg (25.0-35.0); MCHC 31.7 g/dL (31.0-37.0); MCV 99.2 fL (80.0-100.0); Mean Platelet Volume 7.4; Monocytes # (A) 0.3 k/uL (0-1.0); Monocytes % (A) 4 %; Neutrophils # (A) 6.9 k/uL (1.3-7.7); Neutrophils % (A) 91 %; RBC 4.65 m/uL (3.80-5.40); WBC 7.6 k/uL (3.8-10.6); WBC (Perox) 7.85
[2016-09-02 08:37] LABS: Anion Gap 6 mmol/L; Blood Urea Nitrogen 23 mg/dL (7-17); Calcium 8.7 mg/dL (8.4-10.2); Carbon Dioxide 36 mmol/L (22-30); Chloride 98 mmol/L (98-107); Glucose 118 mg/dL (74-99); Non-African American GFR(MDRD) >60 (>60 ml/min/1.73 sqM); Potassium 4.8 mmol/L (3.5-5.1); Sodium 140 mmol/L (137-145)
[2016-09-02] MEDS: FOLIC ACID 1 MG TAB PO SCH (11:20)
[2016-09-02] MEDS: MULTIVITAMINS, THERA 1 EACH TAB PO SCH (11:20)
[2016-09-02] MEDS: THIAMINE 100 MG TAB PO SCH (11:20)
[2016-09-02] MEDS: AZITHROMYCIN 500 MG TAB PO SCH (11:20)
[2016-09-02 11:51] LABS: Glucose,Whole Blood 108 mg/dL (75-99)
--- NOTE | 2016-09-02 12:31 | P.PN ---
Subjective Principal diagnosis: Acute COPD exacerbation This is a very pleasant 60-year-old female patient with no current primary care physician. She has a history of seasonal ALLERGIES. She also has chronic and ongoing nicotine addiction of greater than 40 years at 1 pack per day along with excessive alcohol intake. She has no prior diagnosis of COPD and has not been on any inhalers and she has not been seen by a booking agent in the past. She presented here with a several day history of increasing shortness of breath , cough and congestion. She was seen in urgent care and treated without significant improvement and was presented here to the emergency room yesterday for the same. Her chest x-ray did reveal evidence of possible early infiltrate of the right lower lobe as well as evidence of chronic obstructive pulmonary disease, there is also some mild pulmonary venous congestion. She was quite hypoxic with an O2 saturation of 74% on room air. She did require a nonrebreather mask and subsequent 15 L of high flow nasal cannula to maintain O2 saturations in the 90s. There is no leukocytosis. Her T-max was 99.3. Influenza screen was negative. ProBNP 1440. D-dimer 0.33. She has been initiated on ceftriaxone and azithromycin along with DuoNeb inhalations 4 times a day and when necessary. She was started on IV Solu-Medrol. She is seen today in consultation on the regular medical floor. She is awake and alert in no acute distress. She states she is breathing easier today as compared to yesterday. She is currently on 6 L of high flow nasal cannula to maintain O2 saturations in the 90s. She has a loose nonproductive cough. No chills or night sweats. The patient is seen again today 08/31/2016 in follow-up. She is awake and alert in no acute distress. She does have some level of anxiety and there are still concerns regarding possible delirium tremens. She has been given Ativan which seems to be helping. her breathing is slightly improved today as compared to yesterday. A computed tomography scan revealed mild underlying emphysema changes with bibasilar reticulonodular opacities worrisome for acute infectious process including hypersensitivity pneumonitis. She does continue to require 8 L of high flow nasal cannula to maintain O2 saturations in the 90s. She's been afebrile. No leukocytosis. She is seen again today 09/01/2016 in follow-up. She is awake and alert in no acute distress. She is breathing better today as compared to yesterday. Not quite back to her baseline. She is still on 8 L of high flow nasal cannula to maintain O2 saturations in the low 90s. She will most likely need oxygen upon discharge. the patient is seen again today 09/02/2016 in follow-up on the regular medical floor. She is awake and alert in no acute distress. She continues to require 8 L of high flow nasal cannula to maintain O2 saturations in the low 90s. She is dyspneic on minimal exertion. She is getting somewhat restless and slightly agitated today. She his most likely going through delirium tremens. She has been given Ativan 1 mg 2 already today. Her family is at the bedside. Objective - Vital Signs Vital signs: Vital Signs Temp 97.7 F 09/02/16 07:00 Pulse 100 09/02/16 12:00 Resp 20 09/02/16 07:00 BP 145/90 09/02/16 07:00 Pulse Ox 94 L 09/02/16 07:00 Intake & Output 09/01/16 09/02/16 09/02/16 18:59 06:59 18:59 Intake Total 350 Balance 350 Intake: Oral 350 Other: Voiding Method Toilet Toilet # Voids 2 1 # Bowel Movements 0 - Exam GENERAL EXAM: Alert, comfortable in no apparent distress. HEAD: Normocephalic. EYES: Normal reaction of pupils, equal size. NOSE: Clear with pink turbinates. THROAT: No erythema or exudates. NECK: No masses, no JVD. CHEST: No chest wall deformity. LUNGS: Equal air entry with bilateral wheeze, crackles in the posterior bases, diminished. CVS: S1 and S2 normal with no audible murmurs, regular rhythm. ABDOMEN: No hepatosplenomegaly, normal bowel sounds, no guarding or rigidity. SPINE: No scoliosis or deformity SKIN: No rashes CENTRAL NERVOUS SYSTEM: No focal deficits, tone is normal in all 4 extremities. Extremities: There is no significant peripheral edema. No clubbing, no cyanosis. Peripheral pulses are intact. - Labs CBC & Chem 7: 09/02/16 07:58 09/02/16 07:57 Labs: Abnormal Lab Results - Last 24 Hours (Table) 09/01/16 09/01/16 09/02/16 Range/Units 17:06 21:22 07:10 Hct (34.0-46.0) % Lymphocytes # (1.0-4.8) k/uL Carbon Dioxide (22-30) mmol/L BUN (7-17) mg/dL Creatinine (0.52-1.04) mg/dL Glucose (74-99) mg/dL POC Glucose (mg/dL) 126 H 206 H 110 H (75-99) mg/dL 09/02/16 09/02/16 09/02/16 Range/Units 07:57 07:58 11:39 Hct 46.1 H (34.0-46.0) % Lymphocytes # 0.3 L (1.0-4.8) k/uL Carbon Dioxide 36 H (22-30) mmol/L BUN 23 H (7-17) mg/dL Creatinine 0.48 L (0.52-1.04) mg/dL Glucose 118 H (74-99) mg/dL POC Glucose (mg/dL) 108 H (75-99) mg/dL Assessment and Plan Plan: Impression: #1 Acute hypoxic respiratory failure secondary to an acute exacerbation of chronic obstructive pulmonary disease and ill-defined reticulonodular opacities in the bilateral lower lungs. #2 Chronic and ongoing tobacco dependence. #3 History of seasonal environmental ALLERGIES. #4 History of alcohol abuse. Plan: The patient was seen and evaluated by Dr. Figueredo. We will continue with her current medications including bronchodilators 4 times a day and when necessary. We will continue Pulmicort inhalations twice a day. We'll continue with IV Solu-Medrol. We will begin to titrate them down maybe tomorrow as she remains quite bronchospastic and wheezy still. She remains on antibiotics in the form of ceftriaxone and azithromycin. We will continue to titrate down the FiO2 while maintaining O2 saturations greater than 90%. She is again educated regarding the importance of complete smoking cessation. A NicoDerm patch has been applied. She is again educated regarding the importance of alcohol cessation. The CIWA protocol remains in place. We'll continue to follow make further recommendations based on her clinical status.
--- NOTE | 2016-09-02 12:54 | P.PN ---
Subjective date of service 09/02/2016. Progress note being dictated for Dr. Estrada. Interval history: This is a 60-year-old female in a with acute COPD exacerbation , acute bilateral pneumonia, interstitial pneumonia, and multiple other medical issues. Continues on IV steroids, nebulized bronchodilators, antibiotics and CIWA scale. Remains Agitated, early DTs. Exertional dyspnea , maintaining O2 sats of 93% on 8 L nasal cannula Afebrile,WBC. Denies chest pain, palpitations or increasing shortness of breath. Objective - Vital Signs Vital signs: Vital Signs Temp 97.7 F 09/02/16 07:00 Pulse 100 09/02/16 12:00 Resp 20 09/02/16 07:00 BP 145/90 09/02/16 07:00 Pulse Ox 94 L 09/02/16 07:00 Intake & Output 09/01/16 09/02/16 09/02/16 18:59 06:59 18:59 Intake Total 350 Balance 350 Intake: Oral 350 Other: Voiding Method Toilet Toilet # Voids 2 1 # Bowel Movements 0 - Exam PHYSICAL EXAM: VITAL SIGNS: [As above] GENERAL: [Walking around in room, restless, agitated, asking to go off the floor HEENT: [Pupils equal conjunctiva normal.] NECK: [Supple, no JVD] RESPIRATORY EFFORT:[Increased] LUNGS: [Scattered rhonchi with expiratory wheezes throughout, fine bibasilar crackles. CARDIOVASCULAR[regular S1 and S2 with no murmurs rubs or gallops, no edema GI: [Abdomen soft, nontender, positive bowel sounds. No organomegaly, No guarding, no rigidity] PSYCH: [Alert and oriented -2-3, mood and affect normal.] NEURO: [No focal deficits, moves all 4 extremities, strength and sensation intact] - Labs CBC & Chem 7: 09/02/16 07:58 09/02/16 07:57 Labs: Abnormal Lab Results - Last 24 Hours (Table) 09/01/16 09/01/16 09/02/16 Range/Units 17:06 21:22 07:10 Hct (34.0-46.0) % Lymphocytes # (1.0-4.8) k/uL Carbon Dioxide (22-30) mmol/L BUN (7-17) mg/dL Creatinine (0.52-1.04) mg/dL Glucose (74-99) mg/dL POC Glucose (mg/dL) 126 H 206 H 110 H (75-99) mg/dL 09/02/16 09/02/16 09/02/16 Range/Units 07:57 07:58 11:39 Hct 46.1 H (34.0-46.0) % Lymphocytes # 0.3 L (1.0-4.8) k/uL Carbon Dioxide 36 H (22-30) mmol/L BUN 23 H (7-17) mg/dL Creatinine 0.48 L (0.52-1.04) mg/dL Glucose 118 H (74-99) mg/dL POC Glucose (mg/dL) 108 H (75-99) mg/dL Assessment and Plan Plan: 1. [Acute COPD exacerbation with acute bilateral pneumonia, possibly interstitial bilateral pneumonia]. 2. [Acute hypoxic, hypercarbic respiratory failure with possible sepsis, required nonrebreather mask on admission]. 3. [Increased BNP, rule out CHF]. 4. [History of EtOH abuse,]. 5. [Ongoing Nicotine dependence]. 6. [Hyponatremia]. 7. [Increased CO2]. 8. Degenerative joint disease 9. Hyperkalemia, resolved 10. Early DTs, acute delirium, metabolic encephalopathy, multifactorial. Plan: Continue on current medication regime , IV steroids, nebulized bronchodilators, antibiotics , nicotine patch, monitoring and symptomatic treatment. Continue on CIWA protocol and close monitoring. O2 titration, a steroid taper as per pulmonary. Alcohol and smoking cessation reinforced. Patient and family updated at bedside on plan of care, including that patient cannot leave the floor. Follow closely with pulmonary. Prognosis guarded given multiple complex medical issues. Further recommendations to follow. The impression and plan of care has been dictated as directed. : I performed a H&P examination of this patient and discussed the same with the dictator. I agree with the dictator's note. Any additional findings/opinions/ etc. will be noted.
[2016-09-02] MEDS: SODIUM CHLORIDE 0.9% 1,000 ML IV SCH (15:39)
--- NOTE | 2016-09-02 17:32 | CONS ---
DATE OF CONSULTATION: 09/02/2016. REASON FOR CONSULTATION: Unstable mood. Family is concerned. I did review all the medical records and I saw the patient, also her daughter was at her bedside. HISTORY OF PRESENT ILLNESS: Patient is a 60 -year-old single female who has been living with her significant other since 1989. Patient presented to the emergency room with chief complaint of shortness of breath, cough and congestion. When I saw the patient and introduced myself, patient was very paranoid, suspicious said, "I'm not crazy and I am not depressed." She denied having any anxiety or depressive symptoms. However, she was easily agitated, and irritable and even she started accusing her daughter that "you are the one who called the psychiatrist". I did explain to the patient that her attending is the one who did order this consultation. Patient stated that she has extensive history of alcohol abuse since high school. Was going to AA meeting in 1989. However, currently she denied that alcohol is an issue for her. "When I did ask her how often she has been drinking she said,"4 or 5 beers 2 or 3 times a week." She denied any withdrawal symptoms from alcohol; however, it seems to me that she has been drinking more often especially her living in boyfriend has been drinking on a daily basis. Regarding past psychiatric history, she denied inpatient or outpatient treatment for mental illness or even chemical dependency treatment. She stated that she did attend AA meetings that "she did not like it". Substance abuse history: Nicotine: She has been smoking at least 1 pack a day for more than 40 years. Alcohol: She stated that she never did drink hard liquor, but only beer and usual able to tolerate between 2 to 4 beers at any time. Her home medication is: 1. Zyrtec 10 mg daily. 2. Robitussin. ALLERGY TO ASPIRIN. Her hospital medications: 1. Zithromax 500 mg every 12 hour. 2. Lovenox 40 mg subcutaneous. 3. Folic acid. 4. Hydrocodone. 5. Dilaudid. 6. Ativan 1 mg every 2 hours p.r.n. 7. Singulair. 8. Multivitamin. 9. Protonix. 10. Thiamin. 11. Restoril 15 mg p.r.n. for sleep. 12. Prednisone 60 mg IV every 6 hours. Social history: Patient was , ended by divorce in early . She has 2 grownup children. Currently living with Edi who is 63 years old. He has been drinking on a daily basis. MENTAL STATUS EXAMINATION: Patient is female who did have breathing mask on her face, she looks her stated age. She was easily agitated, irritable, despite she denied any psychotic feature, but there is underlying paranoia and suspicious feeling. Her affect is a mixture of anger, irritability, and anxiety but she maintained control of her emotion and her behavior. She denied any suicidal ideation or wish. She denied any homicidal ideation. Her insight regarding her alcohol use is very limited and she stated that she is not interested to pursue any chemical dependency treatment. DIAGNOSES: 1. Alcohol use disorder. 2. 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 RECOMMENDATIONS: 1. Continue CIWA protocol. 3. The patient does not need any inpatient psychiatric hospitalization. I did give her referred to outpatient substance abuse; however, I doubt that she will pursue it. 4. I do recommend to discontinue Restoril as it is a long-acting benzodiazepine and I will start her on low dose Risperdal 1 mg at bedtime. 5. Patient, seems that she is more paranoid because of prednisone, so I do recommend if it is possible to cut down the steroid dose to decrease her agitation and paranoia. 6. I will continue to follow her as long as she is on the medical floor. Thank you for the consultation.
[2016-09-02] MEDS: MONTELUKAST 10 MG TAB PO SCH (20:58)
[2016-09-02] MEDS: risperiDONE ODT 1 MG TAB PO SCH (20:58)
[2016-09-02 21:07] LABS: Glucose,Whole Blood 168 mg/dL (75-99)
[2016-09-03] MEDS: methylPREDNISolone SOD SUCCI 125 MG/2 ML VIAL IV SCH ×4 (05:22→23:25)
[2016-09-03 07:30] LABS: Glucose,Whole Blood 119 mg/dL (75-99)
[2016-09-03] MEDS: INSULIN LISPRO (humaLOG) 300 UNIT/3 ML VIAL SQ SCH ×4 (07:42→21:16)
[2016-09-03] MEDS: PANTOPRAZOLE 40 MG TABLET PO SCH (07:47)
[2016-09-03] MEDS: ENOXAPARIN 40 MG/0.4 ML SYRINGE SQ SCH (07:47)
[2016-09-03] MEDS: NICOTINE 21MG/24HR PATCH TRANSDERM SCH (07:47)
[2016-09-03] MEDS: SODIUM CHLORIDE 0.9% 1,000 ML IV SCH (07:48)
[2016-09-03] MEDS: IPRATROPIUM-ALBUTEROL 3 ML NEB INHALATION SCH ×4 (08:13→19:45)
[2016-09-03] MEDS: BUDESONIDE 1 MG/2 ML NEBU INHALATION SCH ×2 (08:13→19:45)
--- NOTE | 2016-09-03 08:16 | XR ---
EXAMINATION TYPE: XR chest 1V portable DATE OF EXAM: 09/03/2016 7:03 AM COMPARISON: 08/29/2016 HISTORY: Pneumonia TECHNIQUE: Single frontal view of the chest is obtained. FINDINGS: There is blunting of costophrenic angles. There is mild pulmonary congestion. There are no hilar masses. Thoracic aorta is atheromatous. IMPRESSION: Bilateral pleural effusions. Basilar pulmonary pneumonia cannot be excluded. There is im provement in the pulmonary vascular congestion compared to last exam.
[2016-09-03 09:42] LABS: Basophils % (A) 0 %; CH 30.4; CHCM 31.2; Eosinophils % (A) 0 %; HCT 48.2 % (34.0-46.0); HDW 2.42; HGB 14.8 gm/dL (11.4-16.0); Hypochromasia Slight; Luc # (Auto) 0.05; Luc % (Auto) 1; Lymphocytes # (A) 0.3 k/uL (1.0-4.8); Lymphocytes % (A) 5 %; MCHC 30.6 g/dL (31.0-37.0); MCV 97.9 fL (80.0-100.0); Mean Platelet Volume 6.5; Monocytes # (A) 0.3 k/uL (0-1.0); Monocytes % (A) 5 %; Neutrophils # (A) 5.3 k/uL (1.3-7.7); Neutrophils % (A) 88 %; RBC 4.93 m/uL (3.80-5.40); RDW 13.6 % (11.5-15.5); WBC 5.9 k/uL (3.8-10.6); WBC (Perox) 5.82
[2016-09-03 10:07] LABS: Blood Urea Nitrogen 26 mg/dL (7-17); Calcium 8.8 mg/dL (8.4-10.2); Chloride 93 mmol/L (98-107); Glucose 202 mg/dL (74-99); Non-African American GFR(MDRD) >60 (>60 ml/min/1.73 sqM); Potassium 4.4 mmol/L (3.5-5.1); Sodium 140 mmol/L (137-145)
[2016-09-03 10:21] LABS: Anion Gap 7 mmol/L
[2016-09-03] MEDS ORDERED: FUROSEMIDE 20 MG TAB PO SCH (10:30)
[2016-09-03 10:32] LABS: Carbon Dioxide 40 mmol/L (22-30)
[2016-09-03] MEDS: MULTIVITAMINS, THERA 1 EACH TAB PO SCH (11:15)
[2016-09-03] MEDS: FOLIC ACID 1 MG TAB PO SCH (11:15)
[2016-09-03] MEDS: THIAMINE 100 MG TAB PO SCH (11:15)
[2016-09-03] MEDS: acetaZOLAMIDE 250 MG TAB PO SCH (11:15)
[2016-09-03] MEDS: AZITHROMYCIN 500 MG TAB PO SCH (11:15)
--- NOTE | 2016-09-03 11:28 | PN ---
DATE OF SERVICE: 09/02/2016 This 60-year-old woman who was admitted with COPD exacerbation has significant ETOH and ETOH withdrawal symptoms and delirium tremens. Seen and evaluated the patient along with nurse practitioner. Please refer to the nurse practitioner notes and impression documented as a scribe for further information. Further recommendations to follow.
[2016-09-03 11:48] LABS: Glucose,Whole Blood 128 mg/dL (75-99)
--- NOTE | 2016-09-03 13:10 | P.PN ---
Subjective Principal diagnosis: Acute exacerbation of COPD and bilateral pneumonia This is a very pleasant 60-year-old female patient with no current primary care physician. She has a history of seasonal ALLERGIES. She also has chronic and ongoing nicotine addiction of greater than 40 years at 1 pack per day along with excessive alcohol intake. 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 She presented here with a several day history of increasing shortness of breath , cough and congestion. She was seen in urgent care and treated without significant improvement and was presented here to the emergency room yesterday for the same. Her chest x-ray did reveal evidence of possible early infiltrate of the right lower lobe as well as evidence of chronic obstructive pulmonary disease, there is also some mild pulmonary venous congestion. She was quite hypoxic with an O2 saturation of 74% on room air. She did require a nonrebreather mask and subsequent 15 L of high flow nasal cannula to maintain O2 saturations in the 90s. There is no leukocytosis. Her T-max was 99.3. Influenza screen was negative. ProBNP 1440. D-dimer 0.33. She has been initiated on ceftriaxone and azithromycin along with DuoNeb inhalations 4 times a day and when necessary. She was started on IV Solu-Medrol. She is seen today in consultation on the regular medical floor. She is awake and alert in no acute distress. She states she is breathing easier today as compared to yesterday. She is currently on 6 L of high flow nasal cannula to maintain O2 saturations in the 90s. She has a loose nonproductive cough. No chills or night sweats. The patient is seen again today 08/31/2016 in follow-up. She is awake and alert in no acute distress. She does have some level of anxiety and there are still concerns regarding possible delirium tremens. She has been given Ativan which seems to be helping. her breathing is slightly improved today as compared to yesterday. A computed tomography scan revealed mild underlying emphysema changes with bibasilar reticulonodular opacities worrisome for acute infectious process including hypersensitivity pneumonitis. She does continue to require 8 L of high flow nasal cannula to maintain O2 saturations in the 90s. She's been afebrile. No leukocytosis. She is seen again today 09/01/2016 in follow-up. She is awake and alert in no acute distress. She is breathing better today as compared to yesterday. Not quite back to her baseline. She is still on 8 L of high flow nasal cannula to maintain O2 saturations in the low 90s. She will most likely need oxygen upon discharge. the patient is seen again today 09/02/2016 in follow-up on the regular medical floor. She is awake and alert in no acute distress. She continues to require 8 L of high flow nasal cannula to maintain O2 saturations in the low 90s. She is dyspneic on minimal exertion. She is getting somewhat restless and slightly agitated today. She his most likely going through delirium tremens. She has been given Ativan 1 mg 2 already today. Her family is at the bedside. Patient was reevaluated today on 09/03/2016, feeling a bit better, chest x-ray is showing improvement in her infiltrates bilaterally, small pleural effusions were noted, hence I recommended a touch of diuresis using Diamox since the patient bicarb is elevated related to her chronic respiratory acidosis with metabolic compensation. Patient remains on a high flow nasal cannula today she is at 8 L, and we are still working on tapering the FiO2 down until we could get her discharged home. I was pleased to find out that her chest x-ray and her pneumonia seems to be getting better. And hoping she will improve more with Diamox. Objective - Vital Signs Vital signs: Vital Signs Temp 96.7 F L 09/03/16 07:00 Pulse 112 H 09/03/16 08:28 Resp 16 09/03/16 07:00 BP 176/86 09/03/16 07:00 Pulse Ox 90 L 09/03/16 07:00 Intake & Output 09/02/16 09/03/16 09/03/16 18:59 06:59 18:59 Intake Total 150 Balance 150 Intake: Oral 150 Other: Voiding Method Toilet Toilet Toilet # Voids 2 3 1 - Exam GENERAL EXAM: Alert, comfortable in no apparent distress. HEAD: Normocephalic. EYES: Normal reaction of pupils, equal size. NOSE: Clear with pink turbinates. THROAT: No erythema or exudates. NECK: No masses, no JVD. CHEST: No chest wall deformity. LUNGS: Equal air entry with bilateral wheeze, crackles in the posterior bases, diminished. CVS: S1 and S2 normal with no audible murmurs, regular rhythm. ABDOMEN: No hepatosplenomegaly, normal bowel sounds, no guarding or rigidity. SPINE: No scoliosis or deformity SKIN: No rashes CENTRAL NERVOUS SYSTEM: No focal deficits, tone is normal in all 4 extremities. Extremities: There is no significant peripheral edema. No clubbing, no cyanosis. Peripheral pulses are intact. - Labs CBC & Chem 7: 09/03/16 08:56 09/03/16 08:56 Labs: Abnormal Lab Results - Last 24 Hours (Table) 09/02/16 09/03/16 09/03/16 Range/Units 21:03 07:29 08:56 Hct 48.2 H (34.0-46.0) % MCHC 30.6 L (31.0-37.0) g/dL Lymphocytes # 0.3 L (1.0-4.8) k/uL Chloride (98-107) mmol/L Carbon Dioxide (22-30) mmol/L BUN (7-17) mg/dL Glucose (74-99) mg/dL POC Glucose (mg/dL) 168 H 119 H (75-99) mg/dL 09/03/16 09/03/16 Range/Units 08:56 11:46 Hct (34.0-46.0) % MCHC (31.0-37.0) g/dL Lymphocytes # (1.0-4.8) k/uL Chloride 93 L (98-107) mmol/L Carbon Dioxide 40 H* (22-30) mmol/L BUN 26 H (7-17) mg/dL Glucose 202 H (74-99) mg/dL POC Glucose (mg/dL) 128 H (75-99) mg/dL Assessment and Plan Plan: #1 Acute hypoxic respiratory failure secondary to an acute exacerbation of chronic obstructive pulmonary disease and ill-defined reticulonodular opacities in the bilateral lower lungs. #2 Chronic and ongoing tobacco dependence. #3 History of seasonal environmental ALLERGIES. #4 History of alcohol abuse. #5 small bilateral pleural effusions hence I recommended to Diamox trial on this patient, in the meantime continue treatment for her pneumonia and for her COPD. Recommendation: Continue bronchodilators, continue IV Solu-Medrol, continue to treat with Rocephin and Zithromax, continue to titrate FiO2 down and hopefully once her FiO2 is down to 5 or 4 L, patient could be considered for discharge planning at that point. Again overall prognosis is definitely poor and guarded considering his severe end-stage COPD. Time with Patient: Less than 30
--- NOTE | 2016-09-03 14:10 | P.PN ---
Progress Note - Text Interval history: Patient is seen for psychiatric follow-up ,he denies any suicidal ideation He stated that he has high anxiety and depression ,patient talked in detail about his SA problem ,discussed his plan for recovery and seems he has insight to his addiction ,rates his anxiety 02/18 ,depression / , denies any current alcohol withdrawals , he stated that he does not want his family to know extend of his SA issue Mental status exam: Patient dressed in hospital gown ,looked sedated , ,speech is slurred ,still feeling hopeless and helpless,denies any psychotic features however he seems having some paranoia especially towards his sitter Plan: Transfer to inpatient psych.when medically cleared
[2016-09-03 16:57] LABS: Glucose,Whole Blood 126 mg/dL (75-99)
--- NOTE | 2016-09-03 19:12 | PN ---
DATE OF SERVICE: 09/03/2016 This 60-year-old woman was admitted with COPD and bibasilar pneumonia also had significant acute hypoxic respiratory failure. The patient needed 5 L of oxygen, hypoxic, hypercarbic. Dr. Figueredo is following the patient closely. The patient also having significant ETOH withdrawals also which is improving. On exam, alert and oriented x2. Pulse 105, blood pressure 162/88, respirations 16, temperature 98.7, pulse ox 93% on 8 L. HEENT: Conjunctivae normal. NECK: No jugular venous distention. CARDIOVASCULAR: S1, S2 muffled. RESPIRATORY: Breath sounds diminished at the bases. A few scattered rhonchi and crackles. ABDOMEN: soft, nontender. No mass palpable. LEGS: No edema. No swelling. CENTRAL NERVOUS SYSTEM: Higher functions as mentioned earlier. Moves all four limbs. No focal deficits. LYMPHATICS: No lymph nodes palpable in the neck, axillae or groin. SKIN: No ulcer, rash or bleeding. LABS: CBC within normal limits. CO2 40. Glucose noted. ASSESSMENT: 1. Chronic obstructive pulmonary disease exacerbation with acute bibasilar pneumonia, possibly gram-negative with acute hypoxic hypercarbic respiratory failure with possible sepsis, present on admission requiring nonrebreather mask. 2. History of ETOH abuse. 3. Alcohol withdrawal and early delirium tremens. 4. History of nicotine dependence. 5. Hyponatremia. 6. Increased carbon dioxide. 7. Degenerative joint disease. 8. Hyperkalemia, improved, hyperkalemia resolved. 9. Change in mental status, metabolic encephalopathy, multifactorial. RECOMMENDATIONS AND DISCUSSION: In this 60 -year-old woman who presented with multiple complex medical issues, we will monitor the patient closely. Continue the current medications, continue symptomatic treatment, continue with antibiotics and continue with bronchodilators. Follow closely with multiple consultants, including pulmonary and we will check room air pulse ox. The patient might require home O2. Prognosis guarded. Further recommendations to follow.
[2016-09-03] MEDS: MONTELUKAST 10 MG TAB PO SCH (20:26)
[2016-09-03] MEDS: risperiDONE ODT 1 MG TAB PO SCH (20:26)
[2016-09-03 21:16] LABS: Glucose,Whole Blood 125 mg/dL (75-99)
[2016-09-04] MEDS: SODIUM CHLORIDE 0.9% 1,000 ML IV SCH (03:44)
[2016-09-04 05:11] LABS: Glucose,Whole Blood 129 mg/dL (75-99)
[2016-09-04] MEDS: methylPREDNISolone SOD SUCCI 125 MG/2 ML VIAL IV SCH ×4 (05:11→23:12)
[2016-09-04] MEDS: BUDESONIDE 1 MG/2 ML NEBU INHALATION SCH ×2 (07:21→18:58)
[2016-09-04] MEDS: IPRATROPIUM-ALBUTEROL 3 ML NEB INHALATION SCH ×4 (07:21→18:58)
[2016-09-04 07:54] LABS: Glucose,Whole Blood 110 mg/dL (75-99)
[2016-09-04] MEDS: INSULIN LISPRO (humaLOG) 300 UNIT/3 ML VIAL SQ SCH ×4 (08:24→22:18)
[2016-09-04] MEDS: ENOXAPARIN 40 MG/0.4 ML SYRINGE SQ SCH (10:02)
[2016-09-04] MEDS: acetaZOLAMIDE 250 MG TAB PO SCH (10:02)
[2016-09-04] MEDS: NICOTINE 21MG/24HR PATCH TRANSDERM SCH (10:02)
[2016-09-04] MEDS: PANTOPRAZOLE 40 MG TABLET PO SCH (10:02)
--- NOTE | 2016-09-04 10:24 | P.PN ---
Subjective Progress note dated 09/04/2016 This is a 60-year-old female with a history of small bilateral effusions. This could be result of an infectious process such as pneumonia and/or some mild fluid overload. The patient more more than likely has significant COPD she was a heavy smoker. Seen over last couple days by Dr. Kraft. She is feeling better. The patient was going to alcohol withdrawal. Seemed to be more stable now. Should follow-up in the future. Does not have a primary doctor. Should also see one of us post discharge. I did talk to the nurse about her oxygen. We said that we should keep her saturations between 80-92%. Objective - Vital Signs Vital signs: Vital Signs Temp 97.9 F 09/04/16 07:00 Pulse 107 H 09/04/16 07:35 Resp 19 09/04/16 07:00 BP 181/95 09/04/16 07:00 Pulse Ox 90 L 09/04/16 07:00 Intake & Output 09/03/16 09/04/16 09/04/16 18:59 06:59 18:59 Other: Voiding Method Toilet Toilet # Voids 2 1 - Exam No acute distress, oriented 3. Only mildly tachypnea. No audible wheezing. H EENT examination is grossly unremarkable. Mucous membranes are moist No oral lesions. Neck supple. Full range of motion. No adenopathy or thyromegaly. Cardiovascular examination reveals regular rhythm rate. S1-S2 normal. No S3- S4 or murmur. Lungs reveal few scattered wheezes. No rhonchi. No crackles. Abdomen soft bowel sounds are heard. Extremities are intact. No cyanosis clubbing or edema. - Labs CBC & Chem 7: 09/03/16 08:56 09/03/16 08:56 Labs: Abnormal Lab Results - Last 24 Hours (Table) 09/02/16 09/03/16 09/03/16 Range/Units 17:02 08:56 11:46 Chloride 93 L (98-107) mmol/L Carbon Dioxide 40 H* (22-30) mmol/L BUN 26 H (7-17) mg/dL Glucose 202 H (74-99) mg/dL POC Glucose (mg/dL) 129 H 128 H (75-99) mg/dL 09/03/16 09/03/16 09/04/16 Range/Units 16:55 21:14 07:43 Chloride (98-107) mmol/L Carbon Dioxide (22-30) mmol/L BUN (7-17) mg/dL Glucose (74-99) mg/dL POC Glucose (mg/dL) 126 H 125 H 110 H (75-99) mg/dL Assessment and Plan (1) Acute exacerbation of chronic obstructive airways disease Status: Acute (2) Community acquired pneumonia Status: Acute (3) Hypoxia Status: Acute Plan: Plan dated 09/04/2016 The patient seemed be doing a bit better. Mid a bit less short of breath. Chest x-ray is about the same or slightly improved. She will need follow-up. She needs to find himself a primary physician. She see one of us in the office. Labs x-rays and medications are reviewed. She has a history of chronic alcohol abuse and tobacco dependence. Both of those habits will cause her to have repeated admissions to this hospital. I suspect her elevated carbon dioxide reflexive bad COPD. I'll stop the Diamox. I believe the elevated carbon dioxide on the electrolyte profile likely compensatory for bad COPD. Time with Patient: Less than 30
[2016-09-04 12:23] LABS: Glucose,Whole Blood 143 mg/dL (75-99)
[2016-09-04] MEDS: AZITHROMYCIN 500 MG TAB PO SCH (12:36)
[2016-09-04] MEDS: FOLIC ACID 1 MG TAB PO SCH (12:36)
[2016-09-04] MEDS: THIAMINE 100 MG TAB PO SCH (12:36)
[2016-09-04] MEDS: MULTIVITAMINS, THERA 1 EACH TAB PO SCH (12:36)
[2016-09-04] MEDS ORDERED: FUROSEMIDE 10 MG/ML 2 ML VIAL IV ONE (14:09)
--- NOTE | 2016-09-04 14:57 | P.PN ---
Subjective date of service 09/04/2016. Progress note being dictated for Dr. Estrada. Interval history: This is a 60-year-old female in a with acute COPD exacerbation , acute bilateral pneumonia, interstitial pneumonia, and multiple other medical issues. Continues on IV steroids, nebulized bronchodilators, antibiotics and CIWA scale. Continues to have significant hypoxic respiratory failure, requiring 8 L high flow nasal cannula to maintain O2 sats of 88% . Improving DTs. Afebrile,WBC. Denies chest pain, palpitations or increasing shortness of breath. Objective - Vital Signs Vital signs: Vital Signs Temp 97.9 F 09/04/16 07:00 Pulse 108 H 09/04/16 11:18 Resp 19 09/04/16 07:00 BP 181/95 09/04/16 07:00 Pulse Ox 90 L 09/04/16 07:00 Intake & Output 09/03/16 09/04/16 09/04/16 18:59 06:59 18:59 Other: Voiding Method Toilet Toilet # Voids 2 1 2 # Bowel Movements 0 - Exam PHYSICAL EXAM: VITAL SIGNS: [As above] GENERAL: [A &O 2, respiratory effort increased HEENT: [Pupils equal conjunctiva normal.] NECK: [Supple, no JVD] RESPIRATORY EFFORT:[Increased] LUNGS: Diminished with occasional fine expiratory wheezes scattered, no rhonchi , no crackles CARDIOVASCULAR[regular S1 and S2, mild tachycardia, with no murmurs rubs or gallops, no edema GI: [Abdomen soft, nontender, positive bowel sounds. No organomegaly, No guarding, no rigidity] PSYCH: [Alert and oriented -2-3, mood and affect normal.] NEURO: [No focal deficits, moves all 4 extremities, strength and sensation intact] - Labs CBC & Chem 7: 09/03/16 08:56 09/03/16 08:56 Labs: Abnormal Lab Results - Last 24 Hours (Table) 09/02/16 09/03/16 09/03/16 Range/Units 17:02 16:55 21:14 POC Glucose (mg/dL) 129 H 126 H 125 H (75-99) mg/dL 09/04/16 09/04/16 Range/Units 07:43 12:21 POC Glucose (mg/dL) 110 H 143 H (75-99) mg/dL Assessment and Plan Plan: 1. [Acute COPD exacerbation with acute bilateral pneumonia, possibly interstitial bilateral pneumonia]. 2. [Acute hypoxic, hypercarbic respiratory failure with possible sepsis, required nonrebreather mask on admission]. Currently weaned to 8 L high flow nasal cannula 3. History of EtOH abuse 4. Ongoing nicotine dependence 5. [Increased CO2]. 8. Degenerative joint disease 9. Hyperkalemia, resolved 10. Early DTs, acute delirium, metabolic encephalopathy, multifactorial. Plan: Continue on current medication regime , IV steroids, nebulized bronchodilators, antibiotics , nicotine patch, monitoring and symptomatic treatment. Continue on CIWA protocol and close monitoring. O2 titration, per pulmonary to maintain O2 sats of 88-92%. Alcohol and smoking cessation reinforced. Follow closely with pulmonary. Prognosis guarded given multiple complex medical issues. Further recommendations to follow. The impression and plan of care has been dictated as directed. : I performed a H&P examination of this patient and discussed the same with the dictator. I agree with the dictator's note. Any additional findings/opinions/ etc. will be noted.
[2016-09-04 16:49] LABS: Glucose,Whole Blood 225 mg/dL (75-99)
[2016-09-04] MEDS: FORMOTEROL FUMARATE 20 MCG/2 ML NEBU INHALATION SCH (18:58)
[2016-09-04] MEDS: risperiDONE ODT 1 MG TAB PO SCH (21:05)
[2016-09-04 21:18] LABS: Glucose,Whole Blood 142 mg/dL (75-99)
[2016-09-05] MEDS: methylPREDNISolone SOD SUCCI 125 MG/2 ML VIAL IV SCH ×4 (06:00→23:15)
[2016-09-05 07:15] LABS: Glucose,Whole Blood 101 mg/dL (75-99)
--- NOTE | 2016-09-05 07:28 | PN ---
DATE OF SERVICE: 09/04/2016 This 60-year-old woman who was admitted with chronic obstructive pulmonary disease acute exacerbation, bibasilar pneumonia is being closely monitored. The patient also has significant alcohol issues. The patient is also severely hypoxic and given high flow oxygen at 6-L. I had seen and evaluated the patient along with the nurse practitioner. Please refer to the nurse practitioner notes and impression documented for further information. Further recommendations to follow.
[2016-09-05] MEDS: INSULIN LISPRO (humaLOG) 300 UNIT/3 ML VIAL SQ SCH ×4 (07:49→21:36)
[2016-09-05] MEDS: ENOXAPARIN 40 MG/0.4 ML SYRINGE SQ SCH (08:11)
[2016-09-05] MEDS: NICOTINE 21MG/24HR PATCH TRANSDERM SCH (08:11)
[2016-09-05] MEDS: PANTOPRAZOLE 40 MG TABLET PO SCH (08:11)
[2016-09-05] MEDS: FORMOTEROL FUMARATE 20 MCG/2 ML NEBU INHALATION SCH ×2 (08:31→19:27)
[2016-09-05] MEDS: IPRATROPIUM-ALBUTEROL 3 ML NEB INHALATION SCH ×4 (08:31→19:27)
[2016-09-05] MEDS: BUDESONIDE 1 MG/2 ML NEBU INHALATION SCH ×2 (08:31→19:27)
--- NOTE | 2016-09-05 11:08 | P.PN ---
Subjective Progress note dated 09/04/2016 This is a 60-year-old female with a history of small bilateral effusions. This could be result of an infectious process such as pneumonia and/or some mild fluid overload. The patient more more than likely has significant COPD she was a heavy smoker. Seen over last couple days by Dr. Kraft. She is feeling better. The patient was going to alcohol withdrawal. Seemed to be more stable now. Should follow-up in the future. Does not have a primary doctor. Should also see one of us post discharge. I did talk to the nurse about her oxygen. We said that we should keep her saturations between 80-92%. Feeling better. Hopefully we can discharge her soon. She does not have any insurance. Does not have a family doctor. Progress note dated 08/28/2016 This is a 60-year-old female with history of COPD exacerbation and probably pneumonia. She is doing much better. Feeling much less short of breath. Down to 6 L nasal cannula. She did like to be discharged soon. Does not have any insurance. Does not see a regular doctor. Should see someone. I did advise her to stop smoking. She states she did. Less short of breath. No coughing or wheezing or phlegm production. No fever no chills. No nausea vomiting diarrhea. No chest pain or chest discomfort. Objective - Vital Signs Vital signs: Vital Signs Temp 98.4 F 09/05/16 07:00 Pulse 104 H 09/05/16 09:02 Resp 16 09/05/16 07:00 BP 142/81 09/05/16 07:00 Pulse Ox 94 L 09/05/16 08:34 Intake & Output 09/04/16 09/05/16 09/05/16 18:59 06:59 18:59 Other: # Voids 2 2 # Bowel Movements 0 - Exam No acute distress, oriented 3. Only mildly tachypnea. No audible wheezing. H EENT examination is grossly unremarkable. Mucous membranes are moist No oral lesions. Neck supple. Full range of motion. No adenopathy or thyromegaly. Cardiovascular examination reveals regular rhythm rate. S1-S2 normal. No S3- S4 or murmur. Lungs reveal few scattered wheezes. No rhonchi. No crackles. Abdomen soft bowel sounds are heard. Extremities are intact. No cyanosis clubbing or edema. - Labs CBC & Chem 7: 09/03/16 08:56 09/03/16 08:56 Labs: Abnormal Lab Results - Last 24 Hours (Table) 09/04/16 09/04/16 09/04/16 Range/Units 12:21 16:48 21:12 POC Glucose (mg/dL) 143 H 225 H 142 H (75-99) mg/dL 09/05/16 Range/Units 06:49 POC Glucose (mg/dL) 101 H (75-99) mg/dL Assessment and Plan (1) Acute exacerbation of chronic obstructive airways disease Status: Acute (2) Community acquired pneumonia Status: Acute (3) Hypoxia Status: Acute Plan: Plan dated 09/04/2016 The patient seemed be doing a bit better. Mid a bit less short of breath. Chest x-ray is about the same or slightly improved. She will need follow-up. She needs to find himself a primary physician. She see one of us in the office. Labs x-rays and medications are reviewed. She has a history of chronic alcohol abuse and tobacco dependence. Both of those habits will cause her to have repeated admissions to this hospital. I suspect her elevated carbon dioxide reflexive bad COPD. I'll stop the Diamox. I believe the elevated carbon dioxide on the electrolyte profile likely compensatory for bad COPD. Plan dated 08/28/2016 her graft a should is doing much better. Hopefully discharge in a day or so. May be related today. Is down to 6 L nasal cannula. Has bad COPD. Doesn't have any insurance. She does need follow-up with someone. No additional recommendations are made. We'll continue to follow. Prognosis is very guarded. Diamox was discontinued yesterday as her bicarbonate retention is a response to her elevated CO2 from the bed COPD. Time with Patient: Less than 30
[2016-09-05 11:31] LABS: Basophils % (A) 0 %; CH 31.1; CHCM 32.6; Eosinophils % (A) 0 %; HCT 50.5 % (34.0-46.0); HDW 2.47; HGB 16.2 gm/dL (11.4-16.0); Luc # (Auto) 0.15; Luc % (Auto) 2; Lymphocytes # (A) 0.4 k/uL (1.0-4.8); Lymphocytes % (A) 5 %; MCH 30.7 pg (25.0-35.0); MCV 95.8 fL (80.0-100.0); Monocytes # (A) 0.5 k/uL (0-1.0); Monocytes % (A) 6 %; Neutrophils # (A) 7.3 k/uL (1.3-7.7); Neutrophils % (A) 86 %; RBC 5.27 m/uL (3.80-5.40); RDW 13.8 % (11.5-15.5); WBC 8.5 k/uL (3.8-10.6); WBC (Perox) 8.58
[2016-09-05 11:58] LABS: Anion Gap 7 mmol/L; Blood Urea Nitrogen 36 mg/dL (7-17); Calcium 9.2 mg/dL (8.4-10.2); Carbon Dioxide 37 mmol/L (22-30); Chloride 97 mmol/L (98-107); Glucose 93 mg/dL (74-99); Non-African American GFR(MDRD) >60 (>60 ml/min/1.73 sqM); Potassium 4.7 mmol/L (3.5-5.1); Sodium 141 mmol/L (137-145)
[2016-09-05 12:16] LABS: Glucose,Whole Blood 95 mg/dL (75-99)
[2016-09-05] MEDS: MULTIVITAMINS, THERA 1 EACH TAB PO SCH (12:27)
[2016-09-05] MEDS: THIAMINE 100 MG TAB PO SCH (12:27)
[2016-09-05] MEDS: FOLIC ACID 1 MG TAB PO SCH (12:27)
[2016-09-05] MEDS: AZITHROMYCIN 500 MG TAB PO SCH (12:27)
--- NOTE | 2016-09-05 14:05 | P.PN ---
Progress Note - Text SUBJECTIVE: patient was seen for psychiatric follow-up , I reviewed the medical record, interviewed and I met with patient who was seating and eating her salad ,two brothers were at her bedside She stated that she is feeling better ,appetite is improving ,slept through night,no paranoia or suspicious feeling ,no withdrawal symptoms .She was much more communicative today than couple of days ago. She talked about her alcohol use and her boyfriend of more than 15 years ,stated "I TOLD HIM THAT WE HAVE TO STOP DRINKING AND WE HAVE TO GO TO AA MEETINGS",discussed with her again negative impact of alcohol on her physical and mental health and patient verbalized understanding VITALS:Pulse :102 ,RESP.16,BP:142/80 OBJECTIVE: She presented as a woman who was pleasant on approach. She is wearing her own clothing She made intermittent eye contact. Her speech was spontaneous with decreased rate, rhythm and volume. She had no articulation difficulties. Her affect was appropriate She denies suicidal ideation or homicidal ideation ,her insight to her her alcohol use is improving ,was not agitated or irritable She did not express ideas reference or paranoid ideation. Her thinking was concrete but her associations were coherent and logical. She did not demonstrate perseveration, neologisms or blocking. She denied current hallucinations and did not appear to be responding to internal stimuli. PLAN: Continue Risperdal to restore her sleep ,gradually weaning her off Prednisone ,if possible,refer to AA meeting and outpatient counseling
[2016-09-05 16:59] LABS: Glucose,Whole Blood 113 mg/dL (75-99)
--- NOTE | 2016-09-05 17:06 | P.PN ---
Subjective date of service 09/05/2016. Progress note being dictated for Dr. Okeefe. Interval history: This is a 60-year-old female in a with acute COPD exacerbation , acute bilateral pneumonia, interstitial pneumonia, and multiple other medical issues. Continues on IV steroids, nebulized bronchodilators, antibiotics and CIWA scale. Elevated CO2, improving. Feeling better today, O2 weaned down to 6 L high flow nasal cannula, maintaining O2 sats greater than 88% . Denies cough. Afebrile,WBC. Denies chest pain, palpitations or increasing shortness of breath. Evaluated by psychiatry, recommendations noted including maintaining Risperdal, outpatient AA meetings. Objective - Vital Signs Vital signs: Vital Signs Temp 96.5 F L 09/05/16 14:47 Pulse 101 H 09/05/16 14:47 Resp 16 09/05/16 14:47 BP 142/81 09/05/16 14:47 Pulse Ox 94 L 09/05/16 14:47 Intake & Output 09/04/16 09/05/16 09/05/16 18:59 06:59 18:59 Other: Voiding Method Toilet # Voids 2 2 1 # Bowel Movements 0 - Exam PHYSICAL EXAM: VITAL SIGNS: [As above] GENERAL: [A &O 3, respiratory effort increased HEENT: [Pupils equal conjunctiva normal.] NECK: [Supple, no JVD] RESPIRATORY EFFORT:[Increased] LUNGS: Diminished with occasional fine expiratory wheezes scattered, no rhonchi , no crackles CARDIOVASCULAR[regular S1 and S2, mild tachycardia, with no murmurs rubs or gallops, no edema GI: [Abdomen soft, nontender, positive bowel sounds. No organomegaly, No guarding, no rigidity] PSYCH: [Alert and oriented -3, mood and affect normal.] NEURO: [No focal deficits, moves all 4 extremities, strength and sensation intact] - Labs CBC & Chem 7: 09/05/16 11:22 09/05/16 11:22 Labs: Abnormal Lab Results - Last 24 Hours (Table) 09/04/16 09/04/16 09/05/16 Range/Units 16:48 21:12 06:49 Hgb (11.4-16.0) gm/dL Hct (34.0-46.0) % Lymphocytes # (1.0-4.8) k/uL Chloride (98-107) mmol/L Carbon Dioxide (22-30) mmol/L BUN (7-17) mg/dL POC Glucose (mg/dL) 225 H 142 H 101 H (75-99) mg/dL 09/05/16 09/05/16 Range/Units 11:22 11:22 Hgb 16.2 H (11.4-16.0) gm/dL Hct 50.5 H (34.0-46.0) % Lymphocytes # 0.4 L (1.0-4.8) k/uL Chloride 97 L (98-107) mmol/L Carbon Dioxide 37 H (22-30) mmol/L BUN 36 H (7-17) mg/dL POC Glucose (mg/dL) (75-99) mg/dL Assessment and Plan Plan: 1. [Acute COPD exacerbation with acute bilateral pneumonia, possibly interstitial bilateral pneumonia]. 2. [Acute hypoxic, hypercarbic respiratory failure with possible sepsis, required nonrebreather mask on admission]. Currently weaned to 8 L high flow nasal cannula 3. History of EtOH abuse 4. Ongoing nicotine dependence 5. [Increased CO2]. 8. Degenerative joint disease 9. Hyperkalemia, resolved 10. Early DTs, acute delirium, metabolic encephalopathy, multifactorial. Improving. Plan: Continue on current medication regime , IV steroids, nebulized bronchodilators, antibiotics , nicotine patch,CIWA, monitoring and symptomatic treatment. Continue with O2 titration,to maintain O2 sats of 88-92%. Alcohol and smoking cessation reinforced. Follow closely with pulmonary. Case management/social work to assist patient with obtaining insurance as patient has none. Prognosis guarded given multiple complex medical issues. Further recommendations to follow. The impression and plan of care has been dictated as directed. : I performed a H&P examination of this patient and discussed the same with the dictator. I agree with the dictator's note. Any additional findings/opinions/ etc. will be noted.
[2016-09-05] MEDS ORDERED: FLUCONAZOLE 150 MG TAB PO STA (20:30)
[2016-09-05 21:22] LABS: Glucose,Whole Blood 120 mg/dL (75-99)
[2016-09-05] MEDS: risperiDONE ODT 1 MG TAB PO SCH (21:36)
[2016-09-06] MEDS: methylPREDNISolone SOD SUCCI 125 MG/2 ML VIAL IV SCH ×2 (06:11→12:57)
[2016-09-06 06:15] VITALS: RESP 16
[2016-09-06 07:26] LABS: Glucose,Whole Blood 105 mg/dL (75-99)
[2016-09-06] MEDS: FORMOTEROL FUMARATE 20 MCG/2 ML NEBU INHALATION SCH (07:28)
[2016-09-06] MEDS: IPRATROPIUM-ALBUTEROL 3 ML NEB INHALATION SCH ×2 (07:28→11:39)
[2016-09-06] MEDS: BUDESONIDE 1 MG/2 ML NEBU INHALATION SCH (07:28)
[2016-09-06 07:39] VITALS: BP 132/78; TEMP 98.7
[2016-09-06] MEDS: INSULIN LISPRO (humaLOG) 300 UNIT/3 ML VIAL SQ SCH ×2 (08:19→12:52)
[2016-09-06] MEDS: ENOXAPARIN 40 MG/0.4 ML SYRINGE SQ SCH ×2 (09:16→09:17)
[2016-09-06] MEDS: PANTOPRAZOLE 40 MG TABLET PO SCH (09:18)
[2016-09-06] MEDS: NICOTINE 21MG/24HR PATCH TRANSDERM SCH (09:18)
[2016-09-06 11:49] LABS: Glucose,Whole Blood 137 mg/dL (75-99)
--- NOTE | 2016-09-06 11:53 | P.PN ---
Subjective Progress note dated 09/04/2016 This is a 60-year-old female with a history of small bilateral effusions. This could be result of an infectious process such as pneumonia and/or some mild fluid overload. The patient more more than likely has significant COPD she was a heavy smoker. Seen over last couple days by Dr. Kraft. She is feeling better. The patient was going to alcohol withdrawal. Seemed to be more stable now. Should follow-up in the future. Does not have a primary doctor. Should also see one of us post discharge. I did talk to the nurse about her oxygen. We said that we should keep her saturations between 80-92%. Feeling better. Hopefully we can discharge her soon. She does not have any insurance. Does not have a family doctor. Progress note dated 08/28/2016 This is a 60-year-old female with history of COPD exacerbation and probably pneumonia. She is doing much better. Feeling much less short of breath. Down to 6 L nasal cannula. She did like to be discharged soon. Does not have any insurance. Does not see a regular doctor. Should see someone. I did advise her to stop smoking. She states she did. Less short of breath. No coughing or wheezing or phlegm production. No fever no chills. No nausea vomiting diarrhea. No chest pain or chest discomfort. Progress note dated 09/06/2016 60-year-old female with a presumed history of severe COPD. She's been in the hospital for a number of days now. She's accident in the hospital for about 8 or 9 days. She was slow to improve. Will cart high flow oxygen for a number of days. His been eventually weaned down to 3 L. Can be discharged home on oxygen therapy. One of Vangie's problems is that she is having money does not have any insurance. Doesn't see a family doctor. Certainly does not see a specialist. She does need a baseline PFT testing although she is not sure that she can come to the office. The patient could be discharged home on an updraft machine with albuterol and Atrovent should be also sent home with either Symbicort Brio do MARTIN or Advair. She should also be on an antibiotic. A few more days and a prednisone burst and taper beginning with 40 mg for 4 days 30 mg 4 days 20 mg for 4 days 10 mg 4 days and stop. Objective - Vital Signs Vital signs: Vital Signs Temp 98.7 F 09/06/16 07:00 Pulse 90 09/06/16 08:00 Resp 16 09/06/16 08:00 BP 132/78 09/06/16 07:00 Pulse Ox 94 L 09/06/16 07:00 Intake & Output 09/05/16 09/06/16 09/06/16 18:59 06:59 18:59 Intake Total 400 Balance 400 Weight 47.174 kg Intake: Oral 400 Other: Voiding Method Toilet Toilet # Voids 3 2 - Exam No acute distress, oriented 3. Only mildly tachypnea. No audible wheezing. H EENT examination is grossly unremarkable. Mucous membranes are moist No oral lesions. Neck supple. Full range of motion. No adenopathy or thyromegaly. Cardiovascular examination reveals regular rhythm rate. S1-S2 normal. No S3- S4 or murmur. Lungs reveal few scattered wheezes. No rhonchi. No crackles. Abdomen soft bowel sounds are heard. Extremities are intact. No cyanosis clubbing or edema. - Labs CBC & Chem 7: 09/05/16 11:22 09/05/16 11:22 Labs: Abnormal Lab Results - Last 24 Hours (Table) 09/05/16 09/05/16 09/05/16 Range/Units 11:22 16:54 21:08 Chloride 97 L (98-107) mmol/L Carbon Dioxide 37 H (22-30) mmol/L BUN 36 H (7-17) mg/dL POC Glucose (mg/dL) 113 H 120 H (75-99) mg/dL 09/06/16 09/06/16 Range/Units 07:24 11:48 Chloride (98-107) mmol/L Carbon Dioxide (22-30) mmol/L BUN (7-17) mg/dL POC Glucose (mg/dL) 105 H 137 H (75-99) mg/dL Assessment and Plan (1) Acute exacerbation of chronic obstructive airways disease Status: Acute (2) Community acquired pneumonia Status: Acute (3) Hypoxia Status: Acute Plan: Plan dated 09/04/2016 The patient seemed be doing a bit better. Mid a bit less short of breath. Chest x-ray is about the same or slightly improved. She will need follow-up. She needs to find himself a primary physician. She see one of us in the office. Labs x-rays and medications are reviewed. She has a history of chronic alcohol abuse and tobacco dependence. Both of those habits will cause her to have repeated admissions to this hospital. I suspect her elevated carbon dioxide reflexive bad COPD. I'll stop the Diamox. I believe the elevated carbon dioxide on the electrolyte profile likely compensatory for bad COPD. Plan dated 08/28/2016 her graft a should is doing much better. Hopefully discharge in a day or so. May be related today. Is down to 6 L nasal cannula. Has bad COPD. Doesn't have any insurance. She does need follow-up with someone. No additional recommendations are made. We'll continue to follow. Prognosis is very guarded. Diamox was discontinued yesterday as her bicarbonate retention is a response to her elevated CO2 from the bed COPD. Plan dated 09/06/2016 The patient continues to show improvement. His been weaned down to nasal O2 at 3 L. Temperature discharged home on that. She go home on a few more days of oral antibiotic. Should also be discharged home on DuoNeb's 4 times a day and when necessary as it as well as either high-dose Advair 500/50 one puff twice a day Advair HFA 2:30/21 2 puffs twice a day or Symbicort 160/4.52 puffs twice a day or Breo 200/25 one puff a day or Dulara 200/52 puffs twice a day. She will also be discharged home on a prednisone burst and taper beginning with 40 mg for 4 days 30 mg 4 days 20 mg 4 days 10 mg 4 days and stop. She should follow- up with the family doctor. She states she has no insurance. Will likely not see one of the specialists as well. Has not seen a doctor in years. Time with Patient: Less than 30
[2016-09-06 12:17] VITALS: PULSE 104
[2016-09-06] MEDS: AZITHROMYCIN 500 MG TAB PO SCH (12:58)
[2016-09-06] MEDS: THIAMINE 100 MG TAB PO SCH (12:58)
[2016-09-06] MEDS: FOLIC ACID 1 MG TAB PO SCH (12:58)
[2016-09-06] MEDS: MULTIVITAMINS, THERA 1 EACH TAB PO SCH (12:58)
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
--- NOTE | 2016-09-06 17:08 | P.DS ---
Providers Date of admission: 08/29/16 12:41 Expected date of discharge: 09/06/16 Attending physician: Soledad Okeefe Consults: 08/29/16 14:58 Consult Physician Routine Consulting Provider: Libertad Figueredo Consult Reason/Comments: copd, pneum Do you want consulting provider notified?: Yes 09/01/16 19:36 Consult Physician Routine Consulting Provider: Alice Alanis Consult Reason/Comments: unstable mood, family is concerned of the posibility of "bipolar" Do you want consulting provider notified?: Yes Primary care physician: Stated None Berger Hospital Course: Final Diagnoses: 1. Acute severe COPD exacerbation with acute bilateral pneumonia, possibly interstitial bilateral pneumonia]. 2. [Acute hypoxic, hypercarbic respiratory failure with possible sepsis, required nonrebreather mask on admission]. Currently weaned to 8 L high flow nasal cannula 3. History of EtOH abuse 4. Ongoing nicotine dependence 5. [Increased CO2]. 8. Degenerative joint disease 9. Hyperkalemia, resolved 10. Early DTs, acute delirium, metabolic encephalopathy, multifactorial. resolved Hospital course:This is a 60-year-old female in a with acute severe COPD exacerbation, acute bilateral pneumonia, acute hypoxic hypercarbic respiratory failure interstitial pneumonia, and multiple other medical issues. Required supplemental oxygen as high as 15 L nonrebreather; oxygen weaned off. Evaluated by pulmonary. Maintained on IV steroids, nebulized bronchodilators, antibiotics and CIWA scale. Early DTs resolved. Evaluated by psychiatry with recommendations noted. Cleared by consults for discharge. Patient is being discharged home in a stable condition with guarded prognosis. Patient Condition at Discharge: Stable Plan - Discharge Summary New Discharge Prescriptions: Azithromycin [Zithromax] 500 mg PO DAILY@1200 #5 tab Fluticasone/Salmeterol [Advair 500-50 Diskus] 1 inhalation PO BID #1 diskus Folic Acid 1 mg PO DAILY@1200 #30 tab Ipratropium-Albuterol Nebulize [Duoneb 0.5 mg-3 mg/3 ml Soln] 3 ml INHALATION RT -QID #120 ampul.neb Multivitamins, Thera [Multivitamin (formulary)] 1 each PO DAILY@1200 #30 tab Nicotine 21Mg/24Hr Patch [Habitrol] 1 patch TRANSDERM DAILY #30 patch Pantoprazole [Protonix] 40 mg PO AC-BRKFST #10 tablet. QUEtiapine FUMARATE [SEROquel] 25 mg PO HS #30 tablet Thiamine [Vitamin B-1] 100 mg PO DAILY@1200 #30 tab predniSONE 10 mg PO DIRECTED #40 tab Discharge Medication List Cetirizine HCl [Zyrtec] 10 mg PO DAILY 08/29/16 [History] EPINEPHrine (Auto Inject) [Epipen] 0.3 mg IM ONCE PRN 08/29/16 [History] guaiFENesin-DM 100-10MG/5ML [Robitussin DM] 5 ml PO Q8H PRN 08/29/16 [History] Azithromycin [Zithromax] 500 mg PO DAILY@1200 #5 tab 09/06/16 [Rx] Fluticasone/Salmeterol [Advair 500-50 Diskus] 1 inhalation PO BID #1 diskus [Rx] Folic Acid 1 mg PO DAILY@1200 #30 tab 09/06/16 [Rx] Ipratropium-Albuterol Nebulize [Duoneb 0.5 mg-3 mg/3 ml Soln] 3 ml INHALATION RT -QID #120 ampul.neb 09/06/16 [Rx] Multivitamins, Thera [Multivitamin (formulary)] 1 each PO DAILY@1200 #30 tab [Rx] Nicotine 21Mg/24Hr Patch [Habitrol] 1 patch TRANSDERM DAILY #30 patch 09/06/16 [ Rx] Pantoprazole [Protonix] 40 mg PO AC-BRKFST #10 tablet. 09/06/16 [Rx] QUEtiapine FUMARATE [SEROquel] 25 mg PO HS #30 tablet 09/06/16 [Rx] Thiamine [Vitamin B-1] 100 mg PO DAILY@1200 #30 tab 09/06/16 [Rx] predniSONE 10 mg PO DIRECTED #40 tab 09/06/16 [Rx] Follow up Appointment(s)/Referral(s): [facility], . Psychiatry [Other] - 1 Week Lee Segura DO [Doctor of Osteopathic Medicine] - 09/20/16 2:00 pm Mushtaq Loya MD [REFERRING] - 09/11/16 2:00 pm (JOSSELINE Crain) Ambulatory/Diagnostic Orders: Complete Blood Count w/diff [LAB.AMB] Time Frame: 3 Days, Location: Determined By Patient Patient Instructions/Handouts: COPD (Chronic Obstructive Pulmonary Disease) (DC ), Abuse of Alcohol (DC) Activity/Diet/Wound Care/Special Instructions: Diet: Cardiac Activity: Limited until follow up Recommend AA meetings, please give Pt. Phone numbers of local AA No smoking, no EtOH Discharge Disposition: HOME SELF-CARE
[2016-09-06] MEDS ORDERED: risperiDONE ODT 2 MG TAB PO SCH (21:00)
== END 2016-09-06 15:00 | disposition home or self-care (01) | DRG 871 ==
LOC: EC 11:08 → 4MS4W 12:41
PROVIDERS: ADMIT Hospitalist; ATTEND Hospitalist
PROC: HZ2ZZZZ Detoxification Services for Substance Abuse Treatment (ICD-10-PCS; principal; 2016-08-29)
DX: A41.9 Sepsis, unspecified organism (principal); G93.41 Metabolic encephalopathy; J90 Pleural effusion, not elsewhere classified; F10.231 Alcohol dependence with withdrawal delirium; J96.01 Acute respiratory failure with hypoxia; J96.02 Acute respiratory failure with hypercapnia; E87.2 Acidosis; J18.9 Pneumonia, unspecified organism; J44.1 Chronic obstructive pulmonary disease with (acute) exacerbation; E87.1 Hypo-osmolality and hyponatremia; F10.24 Alcohol dependence with alcohol-induced mood disorder; J44.0 Chronic obstructive pulmonary disease with (acute) lower respiratory infection; T38.0X5A Adverse effect of glucocorticoids and synthetic analogues, initial encounter; F22 Delusional disorders; E87.5 Hyperkalemia; R00.0 Tachycardia, unspecified; F17.200 Nicotine dependence, unspecified, uncomplicated; F32.9 Major depressive disorder, single episode, unspecified; F41.9 Anxiety disorder, unspecified; J30.2 Other seasonal allergic rhinitis; M19.90 Unspecified osteoarthritis, unspecified site; Z88.6 Allergy status to analgesic agent; Z87.828 Personal history of other (healed) physical injury and trauma; Z83.3 Family history of diabetes mellitus; Z87.81 Personal history of (healed) traumatic fracture; Z90.49 Acquired absence of other specified parts of digestive tract; Z79.899 Other long term (current) drug therapy; Z71.6 Tobacco abuse counseling; Z71.41 Alcohol abuse counseling and surveillance of alcoholic; Z71.3 Dietary counseling and surveillance; Z82.49 Family history of ischemic heart disease and other diseases of the circulatory system; Z90.710 Acquired absence of both cervix and uterus; Z63.79 Other stressful life events affecting family and household; Z87.42 Personal history of other diseases of the female genital tract
CPT/HCPCS: 36415; 71010; 71020; 71250; 80048; 80053; 82550; 82553; 83036; 83050; 83605; 83735; 83880; 84484; 85025; 85379; 85610; 85730; 87040; 87502; 93005; 93306; 94640; 94644; 94760; 96374; 96375; 99291

== ENCOUNTER 2019-06-12 15:52 | Emergency (ER) | payer MEDICARE, OTHER ==
[2019-06-12 16:15] VITALS: RESP 18; TEMP 98
[2019-06-12] MEDS ORDERED: DIPH,PERTUS(ACELL)TETVAC-LF 0.5 ML VIAL IM ONE (17:35)
[2019-06-12] MEDS ORDERED: MORPHINE SULFATE 4 MG/ML SYRINGE IVP STA (18:12)
--- NOTE | 2019-06-12 18:25 | CT ---
EXAMINATION TYPE: CT brain jerzy wo con DATE OF EXAM: 06/12/2019 COMPARISON: None HISTORY: Fall today with facial laceration and swelling. CT DLP: 982 mGycm Automated exposure control for dose reduction was used. Ventricles have normal size. There is no mass effect nor midline shift. There is no evidence of intra cranial hemorrhage. Calvarium is intact. There is mucosal thickening in the ethmoid air cells. There is frontal sinus mucosal thickening. The calvarium is intact. Cervical vertebra show fairly normal alignment. There is a 3 mm anterior subluxation of C4 in relatio n to C5. There is disc space narrowing at C5-6 and C6-7. There is multilevel hypertrophic cervical fa cet arthropathy. This is more severe at C3-4 and C4-5. I see no focal bone destruction. Skull base is intact. IMPRESSION: Negative CT scan of the brain. Mild ethmoid sinusitis. Spondylotic changes in the cervical spine. No fracture.
--- NOTE | 2019-06-12 18:36 | CT ---
EXAMINATION TYPE: CT facial bones wo con DATE OF EXAM: 06/12/2019 COMPARISON: HISTORY: Fall today with facial laceration and swelling. CT DLP: 982 mGycm Automated exposure control for dose reduction was used. Multiple axial sections were obtained from the bottom of the mandible to the top of the frontal sinus es without contrast. The mandibular ring is intact. Temporomandibular joints are intact. Zygomatic arches appear normal. N wilfred bone is intact. There is mucosal thickening in the ethmoid air cells. There is frontal sinus muc osal thickening. The orbital margins are intact. There is no evidence of a blowout fracture. There is no evidence of retro-orbital mass. The globes are symmetric. There is soft tissue swelling anterior to the right maxilla. There is bilateral patency of the ostiom eatal complex. IMPRESSION: There is evidence of ethmoid and frontal sinusitis. No fracture seen. Soft tissue swelling anterior to the right maxilla.
--- NOTE | 2019-06-12 18:37 | XR ---
EXAMINATION TYPE: XR shoulder complete RT DATE OF EXAM: 06/12/2019 COMPARISON: NONE HISTORY: Pain TECHNIQUE: 3 views FINDINGS: There is a comminuted fracture of the greater tuberosity of the right humerus. I see no def inite fracture line through the humeral neck. There is no dislocation. The AC joint is intact. IMPRESSION: Comminuted fracture of the greater tuberosity of the humerus without significant displace ment.
--- NOTE | 2019-06-12 18:45 | XR ---
EXAMINATION TYPE: XR elbow complete RT DATE OF EXAM: 06/12/2019 COMPARISON: NONE HISTORY: Shoulder pain TECHNIQUE: 3 views FINDINGS: I see no fracture nor dislocation. Elbow joint spaces are fairly normal. There is no sign of joint effusion. IMPRESSION: Negative right elbow exam. No fracture.
--- NOTE | 2019-06-12 19:07 | ED ---
Fall HPI - General Chief Complaint: Fall Stated Complaint: fall Time Seen by Provider: 06/12/19 17:00 Source: patient, family Mode of arrival: wheelchair - History of Present Illness Initial Comments: 63-year-old female presents today for chief complaint of fall. She states she was carrying some plates in a bucket of water when she tripped over the last step falling forward she states she sustained an abrasion to the right side of her face just below the eye. She denies loss of consciousness or the use of anticoagulation therapy. Patient states that she has a slight headache denies any neck pain. She states most the pain is in her right shoulder. Patient denies pain of the abdomen and chest low back or lower extremities patient denies a pain of the left upper extremity. The patient denies any nausea vomiting visual changes speech changes mucous of the upper or lower extremities. Patient is concerned she has a possible fracture of the right arm and noted that is the only reason she agreed to allow her family to bring her to the emergency department for evaluation today. Patient is unsure last tetanus. - Related Data Home Medications Medication Instructions Recorded Confirmed Cetirizine HCl [Zyrtec] 10 mg PO DAILY 08/29/16 08/29/16 EPINEPHrine (Auto Inject) [Epipen] 0.3 mg IM ONCE PRN 08/29/16 08/29/16 guaiFENesin-DM 100-10MG/5ML 5 ml PO Q8H PRN 08/29/16 08/29/16 [Robitussin DM] Previous Rx's Medication Instructions Recorded Azithromycin [Zithromax] 500 mg PO DAILY@1200 #5 tab 09/06/16 Fluticasone/Salmeterol [Advair 1 inhalation PO BID #1 diskus 09/06/16 500-50 Diskus] Folic Acid 1 mg PO DAILY@1200 #30 tab 09/06/16 Ipratropium-Albuterol Nebulize 3 ml INHALATION RT-QID #120 09/06/16 [Duoneb 0.5 mg-3 mg/3 ml Soln] ampul.neb Multivitamins, Thera [Multivitamin 1 each PO DAILY@1200 #30 tab 09/06/16 (formulary)] Nicotine 21Mg/24Hr Patch [Habitrol] 1 patch TRANSDERM DAILY #30 patch 09/06/16 Pantoprazole [Protonix] 40 mg PO AC-BRKFST #10 tablet. 09/06/16 QUEtiapine FUMARATE [SEROquel] 25 mg PO HS #30 tablet 09/06/16 Thiamine [Vitamin B-1] 100 mg PO DAILY@1200 #30 tab 09/06/16 predniSONE 10 mg PO DIRECTED #40 tab 09/06/16 HYDROcodone/APAP 5-325MG [[place] 1 tab PO Q6HR PRN 3 Days #12 tab 06/12/19 5-325] Allergies Allergy/AdvReac Type Severity Reaction Status Date / Time aspirin Allergy Anaphylaxis Verified 08/29/16 12:00 Review of Systems ROS Statement: Those systems with pertinent positive or pertinent negative responses have been documented in the HPI. ROS Other: All systems not noted in ROS Statement are negative. Past Medical History Additional Past Medical History / Comment(s): seasonal allergies, past work related accident with fx pelvis with sx and fractures in R arm and R hand. History of Any Multi-Drug Resistant Organisms: None Reported Past Surgical History: Appendectomy, Hysterectomy Additional Past Surgical History / Comment(s): pelvic fusion-ledbetter and 11 screws, 5 D&Cs, inverted uterus with childbirth-hysterectomy. Past Psychological History: No Psychological Hx Reported Smoking Status: Current every day smoker Past Alcohol Use History: Occasional Past Drug Use History: None Reported - Past Family History Father Family Medical History: Diabetes Mellitus Additional Family Medical History / Comment(s): Heart problems. Mother Family Medical History: Chest Pain / Angina Additional Family Medical History / Comment(s): caratid artery dx, back p roblems. General Exam - General Exam Comments Initial Comments: General: The patient is awake and alert, in no distress, and does not appear acutely ill. Eye: +3 mm pupils are equal, round and reactive to light, extra-ocular movements are intact. No nystagmus. There is normal conjunctiva bilaterally. No signs of icterus. Ears, nose, mouth and throat: There are moist mucous membranes and no oral lesions. Superficial abrasion over the right cheek just below the eye. No p alpable step-off or defects of the orbits. No entrapment of the extraocular movements are pain with extraocular movements. No raccoon or Ordonez sign. Neck: The neck is supple, there is no tenderness or JVD. No mid line tenderness to palpation of the cervical thoracic or lumbar spine. Cardiovascular: There is a regular rate and rhythm. No murmur, rub or gallop is appreciated. Respiratory: Lungs are clear to auscultation, respirations are non-labored, breath sounds are equal. No wheezes, stridor, rales, or rhonchi. Gastrointestinal: Soft, non-distended, non-tender abdomen without masses or organomegaly noted. There is no rebound or guarding present. Musculoskeletal: Upon inspection of the shoulder joints bilaterally there soft tissue swelling over the lateral right shoulder. No evidence of ecchymosis. No gross deformity noted such as dislocation. Strength 5/5 at the elbow and wrist of the upper extremity is bilaterally refuses a full-strength past at the right shoulder however left shoulder full strength and overhead range of motion. Sensation intact. She is able to make the okay fingers crossed thumbs-up and oppose the small digit and thumb of the upper extremity bilaterally. No evidence of wristdrop Radial and DP pulses equal bilaterally 2+. Neurological: A&O x 3. CN II-XII intact, There are no obvious motor or sensory deficits. Coordination appears grossly intact. Speech is normal. Skin: Skin is warm and dry and no rashes or lesions are noted. Psychiatric: Cooperative, appropriate mood & affect, normal judgment. Limitations: physical limitation Course Vital Signs 06/12/19 06/12/19 16:11 19:55 Temperature 98.0 F Pulse Rate 89 94 Respiratory 18 18 Rate Blood Pressure 149/90 151/91 O2 Sat by Pulse 100 Oximetry Medical Decision Making - Medical Decision Making 63-year-old female presenting today for chief complaint of fall. Patient mostly complaining of right shoulder pain admits to slight headache. Superficial abrasion noted of the right face. CT of the head neck and facial bones revealed no acute processes. Chronic changes. Patient tetanus updated. X-ray of the right shoulder revealed a comminuted greater trochanter fracture which ws discussed with Dr. Zepeda who is agreeable to discharge with sling and outpatient f/u. Patient has slight tenderness over the right elbow, imaging studies (-). Patient neurovascularly intact patient was placed in a medium sling. Return parameters importance of orthopedic and primary care follow-up discussed patient verbalizes understanding and was discharged appearing well. The appropriate use and wrist involvement taking [place] discussed at length the patient who verbalized understanding patient's right arm which she uses predominantly was injured so patient gave verbal consent for her daughter to sign opiod start talking form. Disposition Clinical Impression: Fall, Right shoulder pain, Greater tuberosity of humerus fracture, Facial abrasion, Head injury Disposition: HOME SELF-CARE Condition: Good Instructions (If sedation given, give patient instructions): Arm Fracture in Adults (ED), Fall Prevention for Older Adults (ED) Additional Instructions: Please use medication as discussed. Please follow-up with family doctor in the next 2 days, and Dr. Zepeda next week as discussed. Please return to emergency room if the symptoms increase or worsen or for any other concerns. Prescriptions: HYDROcodone/APAP 5-325MG [[place] 5-325] 1 tab PO Q6HR PRN 3 Days #12 tab PRN Reason: Severe Pain Is patient prescribed a controlled substance at d/c from ED?: Yes When asked, does pt state using other controlled substances?: No If prescribed controlled substance>3 days was MAPS reviewed?: Prescribed <3 Days If opioid is for acute pain is fill amount 7 days or less?: Yes If Rx opioid, was Start Talking consent form obtained?: Yes Referrals: None,Stated [Primary Care Provider] - 1-2 days Gaurav Zepeda DO [Medical Doctor] - 1-2 days Time of Disposition: 19:52
[2019-06-12 19:56] VITALS: BP 151/91; PULSE 94
== END 2019-06-12 19:55 | disposition home or self-care (01) ==
LOC: EC 15:52
DX: S42.251A Displaced fracture of greater tuberosity of right humerus, initial encounter for closed fracture (principal); S00.81XA Abrasion of other part of head, initial encounter; Z23 Encounter for immunization; F17.200 Nicotine dependence, unspecified, uncomplicated; Z88.6 Allergy status to analgesic agent; W10.9XXA Fall (on) (from) unspecified stairs and steps, initial encounter
CPT/HCPCS: 73030; 73080; 72125; 70486; 70450; 90715; 99284; 90471; 96374; J2270

== ENCOUNTER 2020-12-25 15:52 | Inpatient (IN) | payer MEDICARE ==
[2020-12-25 18:13] LABS: Basophils # (A) 0.1 k/uL (0-0.2); Basophils % (A) 1 %; Eosinophils % (A) 1 %; HCT 43.5 % (34.0-46.0); HGB 15.4 gm/dL (11.4-16.0); Lymphocytes # (A) 1.2 k/uL (1.0-4.8); Lymphocytes % (A) 25 %; MCH 32.2 pg (25.0-35.0); MCHC 35.4 g/dL (31.0-37.0); MCV 90.8 fL (80.0-100.0); Mean Platelet Volume 7.6; Monocytes # (A) 0.8 k/uL (0-1.0); Monocytes % (A) 16 %; Neutrophils # (A) 2.6 k/uL (1.3-7.7); Neutrophils % (A) 54 %; Platelet Count 182 k/uL (150-450); RBC 4.79 m/uL (3.80-5.40); WBC 4.8 k/uL (3.8-10.6)
[2020-12-25 18:22] LABS: INR 0.9 (<1.2); Partial Thromboplastin Time 27.1 sec (22.0-30.0); Prothrombin Time 9.8 sec (9.0-12.0)
[2020-12-25 18:24] LABS: Appearance,Urine Cloudy (Clear); Bacteria,Urine Moderate /hpf; Bilirubin,Urine Negative (Negative); Blood,Urine Moderate (Negative); Budding Yeast,Urine Rare /hpf; Color,Urine Yellow; Glucose,Urine (UA) Negative (Negative); Hyaline Casts,Urine 3 /lpf (0-2); Ketones,Urine Negative (Negative); Leukocyte Esterase,Urine Large (Negative); Mucus,Urine Rare /hpf; Nitrite,Urine Negative (Negative); Potassium 4.3 mmol/L (3.5-5.1); Protein,Urine 1+ (Negative); RBC,Urine 4 /hpf (0-5); Specific Gravity,Urine 1.008 (1.001-1.035); Squamous Epithelial Cell,Urine 13 /hpf (0-4); Urobilinogen,Urine <2.0 mg/dL (<2.0); WBC,Urine 13 /hpf (0-5)
[2020-12-25 18:25] LABS: ALT 52 U/L (4-34); AST 70 U/L (14-36); Acetaminophen <10.0 ug/mL; African American GFR (CKD) >90 (>60 ml/min/1.73 sqM); Albumin 4.2 g/dL (3.5-5.0); Alcohol 45 mg/dL; Alkaline Phosphatase 76 U/L (38-126); Amphetamine Screen,Urine Not Detected (NotDetected); Anion Gap 12 mmol/L; Barbiturate Screen,Urine Not Detected (NotDetected); Benzodiazepines Screen,Urine Not Detected (NotDetected); Blood Urea Nitrogen 7 mg/dL (7-17); Calcium 8.1 mg/dL (8.4-10.2); Carbon Dioxide 25 mmol/L (22-30); Chloride 79 mmol/L (98-107); Cocaine Screen,Urine Not Detected (NotDetected); Creatine Kinase 248 U/L (30-135); Glucose 94 mg/dL (74-99); Methadone Screen, Urine Not Detected (NotDetected); Non-African American GFR(CKD) >90 (>60 ml/min/1.73 sqM); Opiate Screen,Urine Not Detected (NotDetected); Oxycodone Screen, Urine Not Detected (NotDetected); Phencyclidine Screen,Urine Not Detected (NotDetected); Salicylate <1.0 mg/dL; Total Bilirubin 0.4 mg/dL (0.2-1.3); Tricyclic Antidepressant,Urine Not Detected (NotDetected); Urn Cannabinoid Scrn Not Detected (NotDetected)
[2020-12-25] MEDS ORDERED: cefTRIAXone IN SWFI 1,000 MG/10 ML SYRINGE IVP STA (18:44)
[2020-12-25 18:54] LABS: Sodium 116 mmol/L (137-145)
[2020-12-25] MEDS ORDERED: SODIUM CHLORIDE 0.9% 1,000 ML IV ONE (18:55)
--- NOTE | 2020-12-25 19:12 | CT ---
EXAMINATION TYPE: CT brain wo con DATE OF EXAM: 12/25/2020 COMPARISON: June 12, 2019 HISTORY: AMS, fall CT DLP: 1094.4 mGycm Automated exposure control for dose reduction was used. There is minimal cerebral atrophy. There is minimal hypodensity in the periventricular white matter. There is no mass effect nor midline shift. There is no sign of intracranial hemorrhage. The calvarium is intact. Skull base is intact. There is mucosal thickening in the ethmoid and maxillary sinuses. IMPRESSION: Mild atrophy and chronic small vessel ischemia. No acute intracranial abnormality. There is sinusitis increased compared to old exam.
--- NOTE | 2020-12-25 19:25 | XR ---
EXAMINATION TYPE: XR chest 2V DATE OF EXAM: 12/25/2020 COMPARISON: 09/03/2016 HISTORY: Altered mental status TECHNIQUE: 2 views FINDINGS: There are some mild interstitial infiltrates at the lung bases. There is no gross heart lloyd lure. Heart size is normal. There are no hilar masses. Thoracic aorta is atheromatous. IMPRESSION: Mild interstitial basilar pulmonary infiltrates. There is clearing of the pleural fluid a nd atelectasis at the lung bases compared to old exam.
[2020-12-25] MEDS ORDERED: NALOXONE 0.4 MG/ML 1 ML VIAL IV PRN (19:27)
[2020-12-25] MEDS ORDERED: THIAMINE 100 MG/ML 2 ML VIAL IM STA (19:34)
--- NOTE | 2020-12-25 19:36 | ED ---
General Adult HPI - General Chief complaint: Weakness Stated complaint: off balance, altered Time Seen by Provider: 12/25/20 16:00 Source: patient, family Mode of arrival: ambulatory Limitations: no limitations - History of Present Illness Initial comments: The patient is a 65-year-old female past medical history of alcohol abuse, COPD on home oxygen who presents to the emergency department with reported altered mental status. Patient is accompanied by her daughter and brother. Family reports that the patient has a significant history of alcohol abuse. They did talk to the patient yesterday and she seemed confused. Confusion continued today and she has had abnormal gait. They state that her last drink was last night. The patient also has had some shortness of breath. She has COPD and does not use any inhalers or nebulizer. She denies cough, fevers or chills. No sick contacts. Daughter states that she has been noncompliant with her medications. Patient does not know what her medications are. Denies any chest pain or history of heart failure. Patient has had significant withdrawal from alcohol. Denies any urinary or bowel complaints. No other alleviating, precipitating or modifying factors - Related Data Home Medications Medication Instructions Recorded Confirmed No Known Home Medications 12/25/20 12/25/20 Allergies Allergy/AdvReac Type Severity Reaction Status Date / Time aspirin Allergy Anaphylaxis Verified 12/25/20 19:02 Review of Systems ROS Statement: Those systems with pertinent positive or pertinent negative responses have been documented in the HPI. ROS Other: All systems not noted in ROS Statement are negative. Past Medical History Additional Past Medical History / Comment(s): seasonal allergies, past work related accident with fx pelvis with sx and fractures in R arm and R hand. History of Any Multi-Drug Resistant Organisms: None Reported Past Surgical History: Appendectomy, Hysterectomy Additional Past Surgical History / Comment(s): pelvic fusion-ledbetter and 11 screws, 5 D&Cs, inverted uterus with childbirth-hysterectomy. Past Psychological History: No Psychological Hx Reported Smoking Status: Current every day smoker Past Alcohol Use History: Daily Past Drug Use History: None Reported - Past Family History Father Family Medical History: Diabetes Mellitus Additional Family Medical History / Comment(s): Heart problems. Mother Family Medical History: Chest Pain / Angina Additional Family Medical History / Comment(s): caratid artery dx, back problems. General Exam Limitations: altered mental status General appearance: alert, other (confused. alert and oriented x 1) Head exam: Present: atraumatic, normocephalic, normal inspection Eye exam: Present: normal appearance, PERRL, EOMI. Absent: scleral icterus, conjunctival injection, periorbital swelling ENT exam: Present: mucous membranes dry Neck exam: Present: normal inspection. Absent: tenderness, meningismus, lymphadenopathy Respiratory exam: Present: wheezes (mild, right sided). Absent: accessory muscle use Cardiovascular Exam: Present: regular rate, normal rhythm GI/Abdominal exam: Present: soft, normal bowel sounds. Absent: distended, tenderness, guarding, rebound, rigid Extremities exam: Present: normal inspection, full ROM, normal capillary refill. Absent: tenderness, pedal edema, joint swelling, calf tenderness Neurological exam: Present: altered Psychiatric exam: Present: agitated Skin exam: Present: warm, dry Course Vital Signs 12/25/20 12/25/20 16:01 18:07 Temperature 99.1 F Pulse Rate 100 101 H Respiratory 22 22 Rate Blood Pressure 156/95 O2 Sat by Pulse 86 L 90 L Oximetry EKG Findings - EKG Comments: EKG Findings:: EKG demonstrates sinus rhythm with ventricular rate 98. WA interval 148. QRS 126. QTC of 490. Right bundle-branch block. No acute ST segment elevations. Significant baseline artifact Medical Decision Making - Medical Decision Making On arrival patient is placed in room 6. History and physical exam is performed. IV is established. Laboratory studies were conducted. Patient went for chest x-ray and a CT of her brain. 12 lead EKG was performed. Laboratory studies reveal sodium of 116. Concern for beer podomania. Urinalysis also demonstrates concern for infection. Urine osmole, urine sodium and serum osmole are sent for analysis. I did speak with Dr. Canales. Patient was given a liter bolus of normal saline will be started on 75 mL per hour as patient does not clinically show signs of volume overload and last echo showed a normal EF. Patient is placed on CIWA protocol. BMP will be performed in 4 hours. Patient given a dose of Rocephin for her abnormal UA. Upon patient's transfer to the floor she does have tachypnea. Repeat portable chest x-ray was performed. Patient was taken to the floor. Chest x-ray today identifies increasing congestion to the right lower lobe. I did call and speak with Dr. Shrestha in regards to the patient's symptoms. Will be given Lasix for concern of volume overload. BNP is also ordered on the patient - Lab Data Result diagrams: 12/26/20 09:07 12/26/20 21:48 Lab Results 12/25/20 12/25/20 12/25/20 Range/Units 17:57 17:57 17:57 WBC 4.8 (3.8-10.6) k/uL RBC 4.79 (3.80-5.40) m/uL Hgb 15.4 (11.4-16.0) gm/dL Hct 43.5 (34.0-46.0) % MCV 90.8 (80.0-100.0) fL MCH 32.2 (25.0-35.0) pg MCHC 35.4 (31.0-37.0) g/dL RDW 13.0 (11.5-15.5) % Plt Count 182 (150-450) k/uL MPV 7.6 Neutrophils % 54 % Lymphocytes % 25 % Monocytes % 16 % Eosinophils % 1 % Basophils % 1 % Neutrophils # 2.6 (1.3-7.7) k/uL Lymphocytes # 1.2 (1.0-4.8) k/uL Monocytes # 0.8 (0-1.0) k/uL Eosinophils # 0.0 (0-0.7) k/uL Basophils # 0.1 (0-0.2) k/uL PT 9.8 (9.0-12.0) sec INR 0.9 (<1.2) APTT 27.1 (22.0-30.0) sec Sodium (137-145) mmol/L Potassium (3.5-5.1) mmol/L Chloride (98-107) mmol/L Carbon Dioxide (22-30) mmol/L Anion Gap mmol/L BUN (7-17) mg/dL Creatinine (0.52-1.04) mg/dL Est GFR (CKD-EPI)AfAm (>60 ml/min/1.73 sqM) Est GFR (CKD-EPI)NonAf (>60 ml/min/1.73 sqM) Glucose (74-99) mg/dL Calcium (8.4-10.2) mg/dL Total Bilirubin (0.2-1.3) mg/dL AST (14-36) U/L ALT (4-34) U/L Alkaline Phosphatase (38-126) U/L Ammonia (<30) umol/L Creatine Kinase (30-135) U/L Troponin I (0.000-0.034) ng/mL NT-Pro-B Natriuret Pep pg/mL Total Protein (6.3-8.2) g/dL Albumin (3.5-5.0) g/dL Urine Color Yellow Urine Appearance Cloudy H (Clear) Urine pH 6.0 (5.0-8.0) Ur Specific [place] 1.008 (1.001-1.035) Urine Protein 1+ H (Negative) Urine Glucose (UA) Negative (Negative) Urine Ketones Negative (Negative) Urine Blood Moderate H (Negative) Urine Nitrite Negative (Negative) Urine Bilirubin Negative (Negative) Urine Urobilinogen <2.0 (<2.0) mg/dL Ur Leukocyte Esterase Large H (Negative) Urine RBC 4 (0-5) /hpf Urine WBC 13 H (0-5) /hpf Ur Squamous Epith Cells 13 H (0-4) /hpf Urine Bacteria Moderate H (None) /hpf Hyaline Casts 3 H (0-2) /lpf Urine Mucus Rare H (None) /hpf Urine Yeast (Budding) Rare H (None) /hpf Salicylates mg/dL Urine Opiates Screen Not Detected (NotDetected) Ur Oxycodone Screen Not Detected (NotDetected) Urine Methadone Screen Not Detected (NotDetected) Ur Propoxyphene Screen Not Detected (NotDetected) Acetaminophen ug/mL Ur Barbiturates Screen Not Detected (NotDetected) U Tricyclic Antidepress Not Detected (NotDetected) Ur Phencyclidine Scrn Not Detected (NotDetected) Ur Amphetamines Screen Not Detected (NotDetected) U Methamphetamines Scrn Not Detected (NotDetected) U Benzodiazepines Scrn Not Detected (NotDetected) Urine Cocaine Screen Not Detected (NotDetected) U Marijuana (THC) Screen Not Detected (NotDetected) Serum Alcohol mg/dL Coronavirus (PCR) (Not Detectd) 12/25/20 12/25/20 12/25/20 Range/Units 17:57 17:57 17:57 WBC (3.8-10.6) k/uL RBC (3.80-5.40) m/uL Hgb (11.4-16.0) gm/dL Hct (34.0-46.0) % MCV (80.0-100.0) fL MCH (25.0-35.0) pg MCHC (31.0-37.0) g/dL RDW (11.5-15.5) % Plt Count (150-450) k/uL MPV Neutrophils % % Lymphocytes % % Monocytes % % Eosinophils % % Basophils % % Neutrophils # (1.3-7.7) k/uL Lymphocytes # (1.0-4.8) k/uL Monocytes # (0-1.0) k/uL Eosinophils # (0-0.7) k/uL Basophils # (0-0.2) k/uL PT (9.0-12.0) sec INR (<1.2) APTT (22.0-30.0) sec Sodium 116 L* (137-145) mmol/L Potassium 4.3 (3.5-5.1) mmol/L Chloride 79 L (98-107) mmol/L Carbon Dioxide 25 (22-30) mmol/L Anion Gap 12 mmol/L BUN 7 (7-17) mg/dL Creatinine 0.44 L (0.52-1.04) mg/dL Est GFR (CKD-EPI)AfAm >90 (>60 ml/min/1.73 sqM) Est GFR (CKD-EPI)NonAf >90 (>60 ml/min/1.73 sqM) Glucose 94 (74-99) mg/dL Calcium 8.1 L (8.4-10.2) mg/dL Total Bilirubin 0.4 (0.2-1.3) mg/dL AST 70 H (14-36) U/L ALT 52 H (4-34) U/L Alkaline Phosphatase 76 (38-126) U/L Ammonia 20 (<30) umol/L Creatine Kinase 248 H (30-135) U/L Troponin I <0.012 (0.000-0.034) ng/mL NT-Pro-B Natriuret Pep pg/mL Total Protein 7.0 (6.3-8.2) g/dL Albumin 4.2 (3.5-5.0) g/dL Urine Color Urine Appearance (Clear) Urine pH (5.0-8.0) Ur Specific [place] (1.001-1.035) Urine Protein (Negative) Urine Glucose (UA) (Negative) Urine Ketones (Negative) Urine Blood (Negative) Urine Nitrite (Negative) Urine Bilirubin (Negative) Urine Urobilinogen (<2.0) mg/dL Ur Leukocyte Esterase (Negative) Urine RBC (0-5) /hpf Urine WBC (0-5) /hpf Ur Squamous Epith Cells (0-4) /hpf Urine Bacteria (None) /hpf Hyaline Casts (0-2) /lpf Urine Mucus (None) /hpf Urine Yeast (Budding) (None) /hpf Salicylates <1.0 mg/dL Urine Opiates Screen (NotDetected) Ur Oxycodone Screen (NotDetected) Urine Methadone Screen (NotDetected) Ur Propoxyphene Screen (NotDetected) Acetaminophen <10.0 ug/mL Ur Barbiturates Screen (NotDetected) U Tricyclic Antidepress (NotDetected) Ur Phencyclidine Scrn (NotDetected) Ur Amphetamines Screen (NotDetected) U Methamphetamines Scrn (NotDetected) U Benzodiazepines Scrn (NotDetected) Urine Cocaine Screen (NotDetected) U Marijuana (THC) Screen (NotDetected) Serum Alcohol 45 mg/dL Coronavirus (PCR) (Not Detectd) 12/25/20 12/25/20 Range/Units 17:57 17:57 WBC (3.8-10.6) k/uL RBC (3.80-5.40) m/uL Hgb (11.4-16.0) gm/dL Hct (34.0-46.0) % MCV (80.0-100.0) fL MCH (25.0-35.0) pg MCHC (31.0-37.0) g/dL RDW (11.5-15.5) % Plt Count (150-450) k/uL MPV Neutrophils % % Lymphocytes % % Monocytes % % Eosinophils % % Basophils % % Neutrophils # (1.3-7.7) k/uL Lymphocytes # (1.0-4.8) k/uL Monocytes # (0-1.0) k/uL Eosinophils # (0-0.7) k/uL Basophils # (0-0.2) k/uL PT (9.0-12.0) sec INR (<1.2) APTT (22.0-30.0) sec Sodium (137-145) mmol/L Potassium (3.5-5.1) mmol/L Chloride (98-107) mmol/L Carbon Dioxide (22-30) mmol/L Anion Gap mmol/L BUN (7-17) mg/dL Creatinine (0.52-1.04) mg/dL Est GFR (CKD-EPI)AfAm (>60 ml/min/1.73 sqM) Est GFR (CKD-EPI)NonAf (>60 ml/min/1.73 sqM) Glucose (74-99) mg/dL Calcium (8.4-10.2) mg/dL Total Bilirubin (0.2-1.3) mg/dL AST (14-36) U/L ALT (4-34) U/L Alkaline Phosphatase (38-126) U/L Ammonia (<30) umol/L Creatine Kinase (30-135) U/L Troponin I (0.000-0.034) ng/mL NT-Pro-B Natriuret Pep 557 pg/mL Total Protein (6.3-8.2) g/dL Albumin (3.5-5.0) g/dL Urine Color Urine Appearance (Clear) Urine pH (5.0-8.0) Ur Specific [place] (1.001-1.035) Urine Protein (Negative) Urine Glucose (UA) (Negative) Urine Ketones (Negative) Urine Blood (Negative) Urine Nitrite (Negative) Urine Bilirubin (Negative) Urine Urobilinogen (<2.0) mg/dL Ur Leukocyte Esterase (Negative) Urine RBC (0-5) /hpf Urine WBC (0-5) /hpf Ur Squamous Epith Cells (0-4) /hpf Urine Bacteria (None) /hpf Hyaline Casts (0-2) /lpf Urine Mucus (None) /hpf Urine Yeast (Budding) (None) /hpf Salicylates mg/dL Urine Opiates Screen (NotDetected) Ur Oxycodone Screen (NotDetected) Urine Methadone Screen (NotDetected) Ur Propoxyphene Screen (NotDetected) Acetaminophen ug/mL Ur Barbiturates Screen (NotDetected) U Tricyclic Antidepress (NotDetected) Ur Phencyclidine Scrn (NotDetected) Ur Amphetamines Screen (NotDetected) U Methamphetamines Scrn (NotDetected) U Benzodiazepines Scrn (NotDetected) Urine Cocaine Screen (NotDetected) U Marijuana (THC) Screen (NotDetected) Serum Alcohol mg/dL Coronavirus (PCR) Not Detected (Not Detectd) Critical Care Time Critical Care Time: Yes Critical Care Time: 32 minutes for critical low sodium, consultation with nephrology and admitting doctor x 2 Disposition Clinical Impression: Hypoxia, Acute exacerbation of chronic obstructive airways disease, UTI (urinary tract infection), Acute encephalopathy, Hyponatremia, Alcohol abuse Disposition: ADMITTED IP TO THIS HOSP Condition: Serious Is patient prescribed a controlled substance at d/c from ED?: No Decision to Admit Reason: Admit from EC Decision Date: 12/25/20 Decision Time: 19:36
[2020-12-25] MEDS: LORazepam 2 MG/ML INJ IV PRN ×2 (20:08→21:46)
[2020-12-25] MEDS: SODIUM CHLORIDE 0.9% 1,000 ML IV SCH (20:08)
--- NOTE | 2020-12-25 21:04 | XR ---
EXAMINATION TYPE: XR chest 1V portable DATE OF EXAM: 12/25/2020 COMPARISON: Today HISTORY: Altered mental status. Short of breath TECHNIQUE: FINDINGS: There is some airspace infiltrate right lower lobe. Heart size is fairly normal. There is n o heart failure. There are chest leads. Thoracic aorta is atheromatous. IMPRESSION: There is increasing infiltrate right lower lobe compared to exam 2 hours ago.
[2020-12-25 21:31] LABS: Glucose,Whole Blood 112 mg/dL (75-99)
[2020-12-25] MEDS ORDERED: FUROSEMIDE 10 MG/ML 4 ML VIAL ONE (21:31)
[2020-12-25] MEDS ORDERED: cloNIDine HCL 0.2 MG TAB PO STA (21:36)
[2020-12-25] MEDS ORDERED: IPRATROPIUM-ALBUTEROL 3 ML NEB INHALATION PRN (21:37)
[2020-12-25] MEDS ORDERED: FUROSEMIDE 10 MG/ML 4 ML VIAL IV STA (21:37)
[2020-12-25 21:42] LABS: ABG Base Excess 3.6 mmol/L; ABG HCO3 30 mmol/L (21-25); ABG Oxygen Saturation 89.9 % (94-97); ABG PCO2 65 mmHg (35-45); ABG PH 7.28 (7.35-7.45); ABG PO2 70 mmHg (83-108); ABG TCO2 32 mmol/L (19-24); Allen Test Performed? Yes
[2020-12-26 00:49] LABS: African American GFR (CKD) >90 (>60 ml/min/1.73 sqM); Anion Gap 10 mmol/L; Blood Urea Nitrogen 6 mg/dL (7-17); Carbon Dioxide 31 mmol/L (22-30); Chloride 84 mmol/L (98-107); Glucose 90 mg/dL (74-99); Non-African American GFR(CKD) >90 (>60 ml/min/1.73 sqM); Potassium 3.8 mmol/L (3.5-5.1); Sodium 125 mmol/L (137-145)
--- NOTE | 2020-12-26 01:58 | XR ---
EXAMINATION TYPE: XR chest 1V portable DATE OF EXAM: 12/26/2020 COMPARISON: Yesterday HISTORY: Short of breath TECHNIQUE: Single view FINDINGS: Heart is enlarged. There is some minimal infiltrate and atelectasis at the lung bases. Ther e is no gross heart failure. There are no hilar masses. There are chest leads. IMPRESSION: Mild basilar pulmonary infiltrates and atelectasis that is improved compared to yesterday . No obvious heart failure.
[2020-12-26] MEDS ORDERED: ACETAMINOPHEN TAB 500 MG TAB PO STA (04:47)
[2020-12-26] MEDS: THIAMINE 100 MG TAB PO SCH ×2 (06:28→15:28)
[2020-12-26] MEDS: LORazepam 2 MG/ML INJ IV PRN ×3 (09:05→17:36)
[2020-12-26 09:39] LABS: Basophils % (A) 0 %; Eosinophils % (A) 0 %; HCT 45.3 % (34.0-46.0); Lymphocytes # (A) 0.8 k/uL (1.0-4.8); Lymphocytes % (A) 9 %; MCH 32.5 pg (25.0-35.0); MCHC 35.2 g/dL (31.0-37.0); MCV 92.3 fL (80.0-100.0); Mean Platelet Volume 7.1; Monocytes # (A) 0.9 k/uL (0-1.0); Monocytes % (A) 10 %; Neutrophils # (A) 7.2 k/uL (1.3-7.7); Neutrophils % (A) 79 %; Platelet Count 162 k/uL (150-450); RBC 4.91 m/uL (3.80-5.40); RDW 13.2 % (11.5-15.5); WBC 9.1 k/uL (3.8-10.6)
[2020-12-26 09:49] LABS: African American GFR (CKD) >90 (>60 ml/min/1.73 sqM); Anion Gap 7 mmol/L; Blood Urea Nitrogen 7 mg/dL (7-17); Calcium 8.3 mg/dL (8.4-10.2); Carbon Dioxide 32 mmol/L (22-30); Chloride 87 mmol/L (98-107); Glucose 125 mg/dL (74-99); Non-African American GFR(CKD) >90 (>60 ml/min/1.73 sqM); Potassium 3.7 mmol/L (3.5-5.1); Sodium 126 mmol/L (137-145)
[2020-12-26] MEDS: SODIUM CHLORIDE 0.9% 1,000 ML IV SCH (10:16)
--- NOTE | 2020-12-26 11:24 | P.CNPUL ---
History of Present Illness Consult date: 12/26/20 Requesting physician: Kylah Park Reason for consult: dyspnea, cough, other Chief complaint: Weakness, dyspnea, altered mental status History of present illness: This is a 65-year-old white female patient with past medical history of daily EtOH abuse, 2 pack a day smoker, COPD on home oxygen, who came into the emergency department on 12/25/2020 for evaluation of altered mental status area patient was accompanied by her daughter and her brother. Family reported that the patient had a significant history of alcohol abuse and her last drink was that the prior to the ER admission. She seemed very confused, and the confusion continued the next day and patient continued to have an abnormal gait. She was noted to be very short of breath. She does have a history of COPD however does not use any inhalers or nebulizer treatments. Denies history of sick contacts. The daughter stated that patient has been noncompliant with her medications. She denied any reports of chest pain. No fever or chills. No prior history of heart failure. No nausea vomiting or diarrhea, patient has had significant withdrawal from alcohol. Brain CT showed mild atrophy and chronic small vessel ischemia, no acute intracranial abnormality. Chest x-ray showed mild interstitial basilar pulmonary infiltrates. Labs revealed CBC within normal limits, coagulation profile was within normal limits, serum sodium was 116, potassium is 4.3, chloride is 79, CO2 was 25, BUN was 7, creatinine 0.77, serum osmolality was low at 254, AST was 70, ALT was 52, alkaline phosphatase was 76, ammonia level was 20, CK was 248, troponin was less than 0.012, proBNP was 557, urinalysis showed cloudy urine with 1+ protein, moderate blood, large amount of leuks, there were 13 of white cells, and moderate bacteria. Urine osmolality was 236, urine random sodium was less than 10. Urine drug screen was negative, serum alcohol was 45, salicylates was less than 1, acetaminophen level was less than 10, COVID-19 PCR was negative. Patient did have a low-grade fever in the emergency department, she required supplemental oxygen she is currently on 4 L of oxygen. She was 86% on room air, she was quite tachypneic and short of breath, she was hypertensive, with a blood pressure of 219/105, and very confused. She was given Ativan for possible EtOH withdrawal syndrome, she was started on nebulized bronchodilators, and antibiotics in the form of Rocephin for possibility of aspiration pneumonia. She was also given a dose of Lasix for increased shortness of breath, pulmonary congestion, and she seems to have improved with those interventions. Her blood gas showed pO2 of 70, pCO2 of 65, and pH of 7.28 consistent with acute on chronic hypoxic and hypercapnic respiratory failure. Today's chest x-ray shows mild basilar pulmonary infiltrates and atelectasis improving compared to yesterday's chest x-ray. However she still quite bronchospastic, very congested and short of breath. Review of Systems All systems: negative Constitutional: Denies chills, Denies fever Eyes: denies blurred vision, denies pain Ears, nose, mouth and throat: Denies headache, Denies sore throat Cardiovascular: Denies chest pain, Denies shortness of breath Respiratory: Reports congestion, Reports cough, Reports dyspnea Gastrointestinal: Denies abdominal pain, Denies diarrhea, Denies nausea, Denies vomiting Genitourinary: Denies dysuria, Denies hematuria Musculoskeletal: Denies myalgias Integumentary: Denies pruritus, Denies rash Neurological: Denies numbness, Denies weakness Psychiatric: Denies anxiety, Denies depression Endocrine: Denies fatigue, Denies weight change Past Medical History Past Medical History: Asthma, COPD, Pneumonia Additional Past Medical History / Comment(s): seasonal allergies, past work related accident with fx pelvis with sx and fractures in R arm and R hand. History of Any Multi-Drug Resistant Organisms: None Reported Past Surgical History: Appendectomy, Hysterectomy Additional Past Surgical History / Comment(s): pelvic fusion-ledbetter and 11 screws, 5 D&Cs, inverted uterus with childbirth-hysterectomy. Past Psychological History: No Psychological Hx Reported Smoking Status: Current every day smoker Past Alcohol Use History: Daily Past Drug Use History: None Reported - Past Family History Father Family Medical History: Diabetes Mellitus Additional Family Medical History / Comment(s): Heart problems. Mother Family Medical History: Chest Pain / Angina Additional Family Medical History / Comment(s): caratid artery dx, back problems. Medications and Allergies Home Medications Medication Instructions Recorded Confirmed Type No Known Home Medications 12/25/20 12/25/20 History Allergies Allergy/AdvReac Type Severity Reaction Status Date / Time aspirin Allergy Anaphylaxis Verified 12/25/20 19:02 Physical Exam Vitals: Vital Signs Temp Pulse Pulse Resp BP BP Pulse Ox 12/26/20 08:00 99.4 F 97 20 149/79 93 L 12/26/20 06:50 98.6 F 12/26/20 03:18 100.6 F H 107 H 20 143/82 95 12/26/20 01:24 108 H 20 165/77 91 L 12/26/20 01:14 111 H 24 186/91 89 L 12/25/20 22:32 131/75 12/25/20 21:51 106 H 16 142/84 93 L 12/25/20 21:39 91 L 12/25/20 21:24 98.4 F 117 H 24 219/105 91 L 12/25/20 18:07 101 H 22 90 L 12/25/20 16:01 99.1 F 100 22 156/95 86 L Intake and Output 12/25/20 12/26/20 12/26/20 22:59 06:59 14:59 Intake Total 240 Balance 240 Intake: Oral 240 Other: # Voids 1 1 2 Weight 40.823 kg 49 kg GENERAL EXAM: Alert, but slow to respond, 65-year-old white female, dyspneic, slightly tachypneic, very congested, and wheezy currently on 4 L of oxygen with a pulse ox of 91%, comfortable in no apparent distress. HEAD: Normocephalic/atraumatic. EYES: Normal reaction of pupils, equal size. Conjunctiva pink, sclera white. NOSE: Clear with pink turbinates. THROAT: No erythema or exudates. NECK: No masses, no JVD, no thyroid enlargement, no adenopathy. CHEST: No chest wall deformity. Symmetrical expansion. LUNGS: Equal air entry with diffuse wheezes and rhonchi CVS: Regular rate and rhythm, normal S1 and S2, no gallops, no murmurs, no rubs ABDOMEN: Soft, nontender. No hepatosplenomegaly, normal bowel sounds, no guarding or rigidity. EXTREMITIES: No clubbing, no edema, no cyanosis, 2+ pulses and upper and lower extremities. MUSCULOSKELETAL: Muscle strength and tone normal. SPINE: No scoliosis or deformity SKIN: No rashes CENTRAL NERVOUS SYSTEM: Alert and oriented -3. No focal deficits, tone is normal in all 4 extremities. PSYCHIATRIC: Alert and oriented -3. Appropriate affect. Intact judgment and insight. Results - Laboratory Findings CBC and BMP: 12/26/20 09:07 12/26/20 09:07 ABG ABG pH 7.28 (7.35-7.45) L 12/25/20 21:35 ABG pCO2 65 mmHg (35-45) H 12/25/20 21:35 ABG pO2 70 mmHg (83-108) L 12/25/20 21:35 ABG O2 Saturation 89.9 % (94-97) L 12/25/20 21:35 PT/INR, D-dimer PT 9.8 sec (9.0-12.0) 12/25/20 17:57 INR 0.9 (<1.2) 12/25/20 17:57 Abnormal lab findings: Abnormal Labs 12/25/20 12/25/20 12/25/20 17:57 17:57 20:30 Lymphocytes # ABG pH ABG pCO2 ABG pO2 ABG HCO3 ABG Total CO2 ABG O2 Saturation Sodium 116 L* Chloride 79 L Carbon Dioxide BUN Creatinine 0.44 L Glucose POC Glucose (mg/dL) Osmolality 254 L Calcium 8.1 L AST 70 H ALT 52 H Creatine Kinase 248 H Urine Appearance Cloudy H Urine Protein 1+ H Urine Blood Moderate H Ur Leukocyte Esterase Large H Urine WBC 13 H Ur Squamous Epith Cells 13 H Urine Bacteria Moderate H Hyaline Casts 3 H Urine Mucus Rare H Urine Yeast (Budding) Rare H 12/25/20 12/25/20 12/26/20 21:29 21:35 00:18 Lymphocytes # ABG pH 7.28 L ABG pCO2 65 H ABG pO2 70 L ABG HCO3 30 H ABG Total CO2 32 H ABG O2 Saturation 89.9 L Sodium 125 L Chloride 84 L Carbon Dioxide 31 H BUN 6 L Creatinine 0.42 L Glucose POC Glucose (mg/dL) 112 H Osmolality Calcium 8.0 L AST ALT Creatine Kinase Urine Appearance Urine Protein Urine Blood Ur Leukocyte Esterase Urine WBC Ur Squamous Epith Cells Urine Bacteria Hyaline Casts Urine Mucus Urine Yeast (Budding) 12/26/20 12/26/20 09:07 09:07 Lymphocytes # 0.8 L ABG pH ABG pCO2 ABG pO2 ABG HCO3 ABG Total CO2 ABG O2 Saturation Sodium 126 L Chloride 87 L Carbon Dioxide 32 H BUN Creatinine 0.42 L Glucose 125 H POC Glucose (mg/dL) Osmolality Calcium 8.3 L AST ALT Creatine Kinase Urine Appearance Urine Protein Urine Blood Ur Leukocyte Esterase Urine WBC Ur Squamous Epith Cells Urine Bacteria Hyaline Casts Urine Mucus Urine Yeast (Budding) - Diagnostic Findings Chest x-ray: report reviewed, image reviewed Additional studies: EKG, and results the brain CT reviewed Assessment and Plan Plan: Assessment: #1. Acute on chronic hypoxic and hypercapnic respiratory failure related to acute exacerbation of COPD and possibility of aspiration pneumonia #2. Altered mental status, brain CT showed no acute intracranial abnormality. This is likely related to acute metabolic encephalopathy related to acute on chronic hypercapnic and hypoxic respiratory failure, aspiration pneumonia, acute exacerbation of COPD, acute EtOH withdrawal and hyponatremia #3. Acute hyponatremia, possibly hypervolemia, improved with Lasix. Low Sodium is also likely related to chronic EtOH #4. Chronic EtOH #5. Acute EtOH withdrawal, on [facility] protocol #6. Advanced COPD on home oxygen, underlying baseline lung function is unknown #7. Medical noncompliance #8. 2 pack a day smoker Plan: Continue current medical treatment Continue Zosyn Discontinue azithromycin We will add IV steroids We'll add Symbicort Continue [facility] protocol Maintaining safety precautions I performed a history & physical examination of the patient and discussed their management with my nurse practitioner, Zuleyma Preston. I reviewed the nurse practitioner's note and agree with the documented findings and plan of care. Lung sounds are positive for diminished breath sounds. The findings and the impression was discussed with the patient. I attest to the documentation by the nurse practitioner. Time with Patient: Greater than 30
[2020-12-26] MEDS: IPRATROPIUM-ALBUTEROL 3 ML NEB INHALATION SCH ×3 (12:09→19:17)
[2020-12-26 12:30] LABS: African American GFR (CKD) >90 (>60 ml/min/1.73 sqM); Anion Gap 5 mmol/L; Blood Urea Nitrogen 6 mg/dL (7-17); Calcium 8.2 mg/dL (8.4-10.2); Carbon Dioxide 33 mmol/L (22-30); Chloride 88 mmol/L (98-107); Glucose 101 mg/dL (74-99); Non-African American GFR(CKD) >90 (>60 ml/min/1.73 sqM); Potassium 3.6 mmol/L (3.5-5.1); Sodium 126 mmol/L (137-145)
[2020-12-26] MEDS ORDERED: FUROSEMIDE 10 MG/ML 2 ML VIAL IV ONE (12:48)
[2020-12-26] MEDS: methylPREDNISolone SOD SUCCI 125 MG/2 ML VIAL IV SCH ×2 (12:51→17:36)
--- NOTE | 2020-12-26 13:09 | CONS ---
CONSULTATION REASON FOR CONSULT: Hyponatremia. HISTORY OF PRESENT ILLNESS: Patient is a 65-year-old female who has a history of EtOH abuse, COPD, who is a chronic smoker. She presented to the emergency department with altered mentation. The patient has been confused. She was noted to have a serum sodium of 116 mEq/L. Her blood pressure was elevated at 219 on initial admission, currently improved about 149 mmHg systolic. There is no history of diarrhea, nausea or vomiting prior to admission. The patient did have alcohol just prior to her emergency visit yesterday. She is not maintained on any medications at home and it does not appear that patient was taking anything new prior to her admission. Review of old labs does not show any history of hyponatremia. However, the last labs are from 2017. Patient was started on normal saline. Her sodium improved to about 125 and 126 mEq/L today. Saline has now been decreased to about 40 mL an hour. Last night, patient developed worsening mentation and shortness of breath at which time she received a dose of Lasix and IV fluids were discontinued. Urine osmolality was at 236. Random urine sodium less than 10. Chest x-ray from last night showed increasing right lower lobe infiltrate and another chest x-ray was done earlier in the morning, which showed bilateral pulmonary infiltrates which had improved suggesting some volume overload. PAST MEDICAL HISTORY: ETOH abuse, COPD, seasonal allergies. PAST SURGICAL HISTORY: Appendectomy, hysterectomy, pelvic fusion plate, D and C's. SOCIAL HISTORY: Positive for smoking. No history of drug abuse or alcohol abuse. MEDICATIONS: Medications prior to admission none. ALLERGIES: None. REVIEW OF SYSTEMS: As per HPI. Other systems negative. EXAMINATION: Currently comfortable, awake. She is confused. She is not in any acute distress. Blood pressure 149/79, heart rate 97 per minute she is afebrile. Examination of the heart S1, S2. Examination of the lungs, bilateral breath sounds are heard. Abdomen is soft, nontender. Examination lower extremities shows edema 1+ bilaterally. MANAGER [employer] exam grossly intact. The patient is moving all 4 extremities, but she is confused. LABS: Show sodium 126, potassium 3.6, BUN 6, creatinine 0.37. Urine osmolality 236. ASSESSMENT: 1. Hyponatremia secondary to decreased oral intake with possible component of tea and toast syndrome. The however, appears to be hypervolemic at this time and I will discontinue the IV fluids. She did receive a dose of Lasix last night. We will repeat another dose of IV Lasix. She is encouraged to increase oral intake, particularly protein. 2. ETOH abuse. 3. Chronic obstructive pulmonary disease. 4. Nicotine abuse/addiction. PLAN: Discontinue IV fluids. Repeat sodium at noon. Repeat IV Lasix x1 now and encourage increased oral protein intake. Thank you for this consultation. We will continue to follow the patient with you during her hospitalization. MMODL / IJN: [id number] /
[2020-12-26] MEDS ORDERED: Potassium Replacement Protocol 1 EACH MISC MISCELLANE PRN (15:08)
[2020-12-26] MEDS: PIPERACILLIN-TAZOBACTAM 3.375 GM in SODIUM CHLORIDE 0.9% 100 ML IVPB SCH (16:13)
[2020-12-26] MEDS: POTASSIUM CHLORIDE 10 MEQ in WATER FOR INJECTION 1 100ML.BAG IVPB SCH ×2 (17:36→18:52)
[2020-12-26] MEDS: SYMBICORT 160-4.5 MCG INHALER INHALATION SCH (19:17)
--- NOTE | 2020-12-26 19:31 | HP ---
HISTORY AND PHYSICAL CHIEF COMPLAINTS: Shortness of breath and change in mental status. HISTORY OF PRESENT ILLNESS: This 65-year-old woman with a past medical history of multiple medical problems including asthma, COPD, history of pneumonia, being followed by no primary physician, apparently also had a history of significant history of EtOH also. The patient apparently drinks heavily 10 to 15 beers a day and the patient was found to have some change in mental status by the family and the patient taken to [facility] and was admitted for further evaluation. Patient also history of alcohol abuse. The patient had abnormal gait as well. The patient also had significant COPD and the patient had significant hyponatremia at 116, which is improved with IV fluids at this time. Patient also has suspected UTI. The patient also developed possibly aspiration on the right side. Dr. Figueredo's initiate IV Zosyn at this time. Detailed history could not be taken, the patient is stuporous. Most of the history taken from my discussion with the staff, review of the chart and discussion with the family at the bedside. PAST MEDICAL HISTORY: History of EtOH, COPD, history of pneumonia, appendectomy. MEDICATIONS: None. ALLERGIES: ASPIRIN. Family history, social history and review of systems could not be taken because of the change in mental status. PHYSICAL EXAMINATION: Patient is stuporous. Pulse 103. Blood pressure 130/90, respiration 20, temperature 98.1, pulse ox 92% on 4 L. HEENT: Conjunctivae normal. Oral mucosa moist. NECK is no jugular venous distention. No carotid bruit. No lymph node enlargement. CARDIOVASCULAR systems : S1, S2 muffled. RESPIRATION: Breath sounds diminished in the bases. Scattered rhonchi and crackles. Expiratory wheezing also present. ABDOMEN: Soft. Nontender. LEGS are no edema. No swelling. NERVOUS SYSTEM: Higher functions as mentioned. Moves all four limbs. No focal deficits. LYMPHATICS: No lymph nodes palpable in the neck, axillae or groin. SKIN: No ulcer, no rash and no bleeding. JOINTS: No active deforming arthropathy. LABS: CBC within normal limits. ABGs noted. PH of 7.28, sodium 160, other labs and chest x- ray noted. ASSESSMENT: 1. Chronic obstructive pulmonary disease acute exacerbation with acute hypoxic hypercarbic respiratory failure. 2. Acute right lower lobe pneumonia possibly aspiration pneumonia with pneumonia. 3. Alcohol intoxication. 4. Change in mental status acute metabolic encephalopathy multifactorial. 5. Acute delirium tremens. 6. Hyponatremia. 7. Elevated AST/ALT, possibly alcoholic hepatitis. 8. Elevated creatinine kinase with mild rhabdomyolysis. 9. Possible urinary tract infection. 10.History of asthma. 11.History of chronic obstructive pulmonary disease. 12.History of pneumonia. 13.History of seasonal allergies. 14.History of appendectomy. 15.History of hysterectomy. 16.History of continued ongoing nicotine dependence. 17.NO CODE, NO CPR, NO VENT. RECOMMENDATIONS AND DISCUSSION: This 65-year-old woman who presented with multiple complex medical issues, we will monitor the patient closely, continue the current medications, management and symptomatic treatment. Bronchodilators. Otherwise CIWA protocol, supplement vitamins. Broad-spectrum IV antibiotics. Follow the cultures. environmental services coordinator evaluation. PT/OT evaluation. Prognosis guarded because of multiple complex medical issues. Further recommendations to follow. MMODL / IJN: [id number] /
[2020-12-26] MEDS: NICOTINE 21MG/24HR PATCH TRANSDERM SCH (20:35)
[2020-12-26 22:10] LABS: Glucose,Whole Blood 160 mg/dL (75-99)
[2020-12-26 22:39] LABS: African American GFR (CKD) >90 (>60 ml/min/1.73 sqM); Anion Gap 10 mmol/L; Blood Urea Nitrogen 11 mg/dL (7-17); Calcium 9.2 mg/dL (8.4-10.2); Carbon Dioxide 32 mmol/L (22-30); Chloride 90 mmol/L (98-107); Glucose 163 mg/dL (74-99); Non-African American GFR(CKD) >90 (>60 ml/min/1.73 sqM); Potassium 4.3 mmol/L (3.5-5.1); Sodium 132 mmol/L (137-145)
[2020-12-26 22:45] LABS: ABG Base Excess 10.3 mmol/L; ABG HCO3 36 mmol/L (21-25); ABG Oxygen Saturation 84.3 % (94-97); ABG PCO2 66 mmHg (35-45); ABG PH 7.34 (7.35-7.45); ABG TCO2 38 mmol/L (19-24); Allen Test Performed? Yes
[2020-12-26 22:51] LABS: ABG PO2 52 mmHg (83-108)
[2020-12-27] MEDS: PIPERACILLIN-TAZOBACTAM 3.375 GM in SODIUM CHLORIDE 0.9% 100 ML IVPB SCH ×4 (00:06→23:04)
[2020-12-27] MEDS: methylPREDNISolone SOD SUCCI 125 MG/2 ML VIAL IV SCH ×5 (00:06→23:02)
[2020-12-27] MEDS: LORazepam 2 MG/ML INJ IV PRN ×5 (05:12→21:14)
[2020-12-27] MEDS: THIAMINE 100 MG TAB PO SCH ×2 (06:40→19:07)
[2020-12-27 08:18] LABS: Magnesium 1.9 mg/dL (1.6-2.3); Potassium 3.9 mmol/L (3.5-5.1)
[2020-12-27] MEDS: IPRATROPIUM-ALBUTEROL 3 ML NEB INHALATION SCH ×4 (08:25→20:06)
[2020-12-27] MEDS: SYMBICORT 160-4.5 MCG INHALER INHALATION SCH ×3 (08:25→20:06)
[2020-12-27] MEDS: NICOTINE 21MG/24HR PATCH TRANSDERM SCH (09:02)
[2020-12-27 09:43] LABS: African American GFR (CKD) >90 (>60 ml/min/1.73 sqM); Anion Gap 10 mmol/L; Blood Urea Nitrogen 19 mg/dL (7-17); Calcium 9.6 mg/dL (8.4-10.2); Carbon Dioxide 33 mmol/L (22-30); Chloride 91 mmol/L (98-107); Glucose 152 mg/dL (74-99); Non-African American GFR(CKD) >90 (>60 ml/min/1.73 sqM); Sodium 134 mmol/L (137-145)
[2020-12-27] MEDS ORDERED: DEXTROSE 5% IN WATER 1,000 ML IV ONE (10:04)
--- NOTE | 2020-12-27 10:07 | P.PN ---
Subjective Patient is seen in follow-up for hyponatremia. Sodium level up to 134 today. She received a dose of IV Lasix yesterday. Oral intake is fair. No vomiting or diarrhea. Vital signs are stable. General: The patient appeared well nourished and normally developed. HEENT: Head exam is unremarkable. Neck is without jugular venous distension. LUNGS: Breath sounds decreased. HEART: Rate and Rhythm are regular. ABDOMEN: Soft, no distention. EXTREMITITES: No edema. Objective - Vital Signs Vital signs: Vital Signs Temp 97.9 F 12/27/20 04:00 Pulse 132 H 12/27/20 08:45 Resp 21 12/27/20 04:00 BP 102/71 12/27/20 04:00 Pulse Ox 93 L 12/27/20 04:00 Intake & Output 12/26/20 12/27/20 12/27/20 18:59 06:59 18:59 Intake Total 240 580 0 Balance 240 580 0 Weight 46.5 kg Intake: Intake, IV Titration 580 Amount Piperacillin-Tazobactam 3 100 .375 gm In Sodium Chloride 0.9% 100 ml @ 25 mls/hr IVPB Q8HR ALIREZA Rx# :[id number] Sodium Chloride 0.9% 1, 480 000 ml @ 40 mls/hr IV . Q24H ALIREZA Rx#:[id number] Oral 240 0 Other: # Voids 2 4 - Labs CBC & Chem 7: 12/26/20 09:07 12/27/20 07:31 Labs: Abnormal Lab Results - Last 24 Hours (Table) 12/26/20 12/26/20 12/26/20 Range/Units 12:02 12:02 21:48 ABG pH (7.35-7.45) ABG pCO2 (35-45) mmHg ABG pO2 (83-108) mmHg ABG HCO3 (21-25) mmol/L ABG Total CO2 (19-24) mmol/L ABG O2 Saturation (94-97) % Sodium 126 L 132 L (137-145) mmol/L Chloride 88 L 90 L (98-107) mmol/L Carbon Dioxide 33 H 32 H (22-30) mmol/L BUN 6 L (7-17) mg/dL Creatinine 0.37 L 0.46 L (0.52-1.04) mg/dL Glucose 101 H 163 H (74-99) mg/dL POC Glucose (mg/dL) (75-99) mg/dL Plasma Lactic Acid Aaron 0.6 L (0.7-2.0) mmol/L Calcium 8.2 L (8.4-10.2) mg/dL 12/26/20 12/26/20 12/27/20 Range/Units 22:08 22:42 07:31 ABG pH 7.34 L (7.35-7.45) ABG pCO2 66 H (35-45) mmHg ABG pO2 52 L* (83-108) mmHg ABG HCO3 36 H (21-25) mmol/L ABG Total CO2 38 H (19-24) mmol/L ABG O2 Saturation 84.3 L (94-97) % Sodium 134 L (137-145) mmol/L Chloride 91 L (98-107) mmol/L Carbon Dioxide 33 H (22-30) mmol/L BUN 19 H (7-17) mg/dL Creatinine (0.52-1.04) mg/dL Glucose 152 H (74-99) mg/dL POC Glucose (mg/dL) 160 H (75-99) mg/dL Plasma Lactic Acid Aaron (0.7-2.0) mmol/L Calcium (8.4-10.2) mg/dL Microbiology - Last 24 Hours (Table) 12/25/20 17:57 Urine Culture - Final Urine,Voided Assessment and Plan Plan: Assessment: 1. Hyponatremia from poor solute intake. Sodium level 134 this morning. Urine sodium less than 10 and urine osmolality 236. 2. Alcohol abuse. 3. History of COPD. Plan: Start D5W to be run at 100 mL an hour to avoid rapid correction. Repeat sodium level in 3 hours. Encourage oral intake. Check TSH.
--- NOTE | 2020-12-27 11:29 | P.PN ---
Subjective Progress Note Date: 12/27/20 Principal diagnosis: Acute exacerbation of COPD, aspiration pneumonia This is a 65-year-old white female patient with past medical history of daily EtOH abuse, 2 pack a day smoker, COPD on home oxygen, who came into the emergency department on 12/25/2020 for evaluation of altered mental status area patient was accompanied by her daughter and her brother. Family reported that the patient had a significant history of alcohol abuse and her last drink was that the prior to the ER admission. She seemed very confused, and the confusion continued the next day and patient continued to have an abnormal gait. She was noted to be very short of breath. She does have a history of COPD however does not use any inhalers or nebulizer treatments. Denies history of sick contacts. The daughter stated that patient has been noncompliant with her medications. She denied any reports of chest pain. No fever or chills. No prior history of heart failure. No nausea vomiting or diarrhea, patient has had significant withdrawal from alcohol. Brain CT showed mild atrophy and chronic small vessel ischemia, no acute intracranial abnormality. Chest x-ray showed mild interstitial basilar pulmonary infiltrates. Labs revealed CBC within normal limits, coagulation profile was within normal limits, serum sodium was 116, potassium is 4.3, chloride is 79, CO2 was 25, BUN was 7, creatinine 0.77, serum osmolality was low at 254, AST was 70, ALT was 52, alkaline phosphatase was 76, ammonia level was 20, CK was 248, troponin was less than 0.012, proBNP was 557, urinalysis showed cloudy urine with 1+ protein, moderate blood, large amount of leuks, there were 13 of white cells, and moderate bacteria. Urine osmolality was 236, urine random sodium was less than 10. Urine drug screen was negative, serum alcohol was 45, salicylates was less than 1, acetaminophen level was less than 10, COVID-19 PCR was negative. Patient did have a low-grade fever in the emergency department, she required supplemental oxygen she is currently on 4 L of oxygen. She was 86% on room air, she was quite tachypneic and short of breath, she was hypertensive, with a blood pressure of 219/105, and very confused. She was given Ativan for possible EtOH withdrawal syndrome, she was started on nebulized bronchodilators, and antibiotics in the form of Rocephin for possibility of aspiration pneumonia. She was also given a dose of Lasix for increased shortness of breath, pulmonary congestion, and she seems to have improved with those interventions. Her blood gas showed pO2 of 70, pCO2 of 65, and pH of 7.28 consistent with acute on chronic hypoxic and hypercapnic respiratory failure. Today's chest x-ray shows mild basilar pulmonary infiltrates and atelectasis improving compared to yesterday's chest x-ray. However she still quite bronchospastic, very congested and short of breath. On 12/27/2020 patient is seen in follow-up on selective care unit. She is resting comfortably in bed, likely on 8 L of oxygen, she did wear BiPAP overnight. She does breathe more comfortably today, appears to be less congestive bronchospastic. She is more awake, and following commands, although remains confused. She does attend get very restless, impulsive and sometimes agitated. She remains on CIWA protocol. Today's labs have been reviewed. BMP was done only, sodium is improving and is up to 134 on today's labs, potassium is 3.9, chloride is 91, CO2 33, BUN of 19, creatinine 0.57, BNP was 557, t roponin was negative at less than 0.012. He remains on Zosyn for possibility of aspiration pneumonia. She remains on breathing treatments. Her daughters are at the bedside, they state the patient used to follow with Dr. Gore in the pulmonary clinic however has not seen him in quite some time. They stated the patient is noncompliant, she still drinks and smokes quite extensively. Her home oxygen was taken back by the [facility], patient had not been wearing her hearing it lately. Objective - Vital Signs Vital signs: Vital Signs Temp 97.7 F 12/27/20 08:00 Pulse 132 H 12/27/20 08:45 Resp 20 12/27/20 08:00 BP 132/89 12/27/20 08:00 Pulse Ox 93 L 12/27/20 04:00 Intake & Output 12/26/20 12/27/20 12/27/20 18:59 06:59 18:59 Intake Total 240 580 0 Balance 240 580 0 Weight 46.5 kg Intake: Intake, IV Titration 580 Amount Piperacillin-Tazobactam 3 100 .375 gm In Sodium Chloride 0.9% 100 ml @ 25 mls/hr IVPB Q8HR ALIREZA Rx# :[id number] Sodium Chloride 0.9% 1, 480 000 ml @ 40 mls/hr IV . Q24H ALIREZA Rx#:[id number] Oral 240 0 Other: # Voids 2 4 - Exam GENERAL EXAM: Alert, more cooperative on today's exam 65-year-old white female, on 8 L of oxygen with a pulse ox of 91%, comfortable in no apparent distress. HEAD: Normocephalic/atraumatic. EYES: Normal reaction of pupils, equal size. Conjunctiva pink, sclera white. NOSE: Clear with pink turbinates. THROAT: No erythema or exudates. NECK: No masses, no JVD, no thyroid enlargement, no adenopathy. CHEST: No chest wall deformity. Symmetrical expansion. LUNGS: Equal air entry with diffuse wheezes and rhonchi CVS: Regular rate and rhythm, normal S1 and S2, no gallops, no murmurs, no rubs ABDOMEN: Soft, nontender. No hepatosplenomegaly, normal bowel sounds, no guarding or rigidity. EXTREMITIES: No clubbing, no edema, no cyanosis, 2+ pulses and upper and lower extremities. MUSCULOSKELETAL: Muscle strength and tone normal. SPINE: No scoliosis or deformity SKIN: No rashes CENTRAL NERVOUS SYSTEM: Alert and oriented -3. No focal deficits, tone is normal in all 4 extremities. PSYCHIATRIC: Alert and oriented -3. Appropriate affect. Intact judgment and insight. - Labs CBC & Chem 7: 12/26/20 09:07 12/27/20 07:31 Labs: Abnormal Lab Results - Last 24 Hours (Table) 12/26/20 12/26/20 12/26/20 Range/Units 12:02 12:02 21:48 ABG pH (7.35-7.45) ABG pCO2 (35-45) mmHg ABG pO2 (83-108) mmHg ABG HCO3 (21-25) mmol/L ABG Total CO2 (19-24) mmol/L ABG O2 Saturation (94-97) % Sodium 126 L 132 L (137-145) mmol/L Chloride 88 L 90 L (98-107) mmol/L Carbon Dioxide 33 H 32 H (22-30) mmol/L BUN 6 L (7-17) mg/dL Creatinine 0.37 L 0.46 L (0.52-1.04) mg/dL Glucose 101 H 163 H (74-99) mg/dL POC Glucose (mg/dL) (75-99) mg/dL Plasma Lactic Acid Aaron 0.6 L (0.7-2.0) mmol/L Calcium 8.2 L (8.4-10.2) mg/dL 12/26/20 12/26/20 12/27/20 Range/Units 22:08 22:42 07:31 ABG pH 7.34 L (7.35-7.45) ABG pCO2 66 H (35-45) mmHg ABG pO2 52 L* (83-108) mmHg ABG HCO3 36 H (21-25) mmol/L ABG Total CO2 38 H (19-24) mmol/L ABG O2 Saturation 84.3 L (94-97) % Sodium 134 L (137-145) mmol/L Chloride 91 L (98-107) mmol/L Carbon Dioxide 33 H (22-30) mmol/L BUN 19 H (7-17) mg/dL Creatinine (0.52-1.04) mg/dL Glucose 152 H (74-99) mg/dL POC Glucose (mg/dL) 160 H (75-99) mg/dL Plasma Lactic Acid Aaron (0.7-2.0) mmol/L Calcium (8.4-10.2) mg/dL Microbiology - Last 24 Hours (Table) 12/25/20 17:57 Urine Culture - Final Urine,Voided Assessment and Plan Plan: Assessment: #1. Acute on chronic hypoxic and hypercapnic respiratory failure related to acute exacerbation of COPD and possibility of aspiration pneumonia #2. Altered mental status, brain CT showed no acute intracranial abnormality. This is likely related to acute metabolic encephalopathy related to acute on chronic hypercapnic and hypoxic respiratory failure, aspiration pneumonia, acute exacerbation of COPD, acute EtOH withdrawal and hyponatremia #3. Acute hyponatremia, possibly hypervolemia, improved with Lasix. Low Sodium is also likely related to chronic EtOH #4. Chronic EtOH #5. Acute EtOH withdrawal, on CINH protocol #6. Advanced COPD on home oxygen, underlying baseline lung function is unknown #7. Medical noncompliance #8. 2 pack a day smoker Plan: Continue current medical treatment Continue same dose IV steroids Continue antibiotics Breathing treatments Follow-up chest x-ray in the morning Maintain safety precautions Continue CINH protocol Obtain speech evaluation I performed a history & physical examination of the patient and discussed their management with my nurse practitioner, Zuleyma Preston. I reviewed the nurse practitioner's note and agree with the documented findings and plan of care. Lung sounds are positive for diminished breath sounds. The findings and the impression was discussed with the patient. I attest to the documentation by the nurse practitioner. Time with Patient: Less than 30
[2020-12-27 11:38] LABS: Glucose,Whole Blood 225 mg/dL (75-99)
[2020-12-27 17:07] LABS: Glucose,Whole Blood 156 mg/dL (75-99)
[2020-12-27] MEDS: INSULIN ASPART (NovoLOG) 100 UNIT/ML VIAL SQ SCH ×2 (17:30→20:37)
[2020-12-27 20:33] LABS: Glucose,Whole Blood 135 mg/dL (75-99)
--- NOTE | 2020-12-27 21:48 | PN ---
PROGRESS NOTE DATE OF SERVICE: 12/27/2020. This 65-year-old woman was admitted with shortness of breath and COPD acute exacerbation. Also had features of acute hypoxic respiratory failure. The patient also has significant alcohol issues as well. Blood sugar is elevated at this time. The pH shows 7.28. Sodium is 116, improved to 130. Multiple consultants are following the patient closely, including Nephrology as well as pulmonology. The patient had an episode of hypoxia this morning. PAST MEDICAL HISTORY: Reviewed. Review of systems could not be taken. The patient is still confused. CURRENT MEDICATIONS: Reviewed and include: DuoNeb, Symbicort, NovoLog, Ativan, Solu-Medrol, Narcan, Habitrol, Zosyn IV. PHYSICAL EXAMINATION: The patient is conscious, confused. Pulse is 112, blood pressure is 120/60, respiration 20, temperature 98.7, pulse ox 93 percent on BiPAP and on high-flow oxygen 8 L nasal cannula. HEENT: Conjunctivae normal. Neck: No JVD. Cardiovascular: S1, S2 muffled. Respiratory: Breath sounds diminished at the bases. A few scattered rhonchi and crackles. Abdomen: Soft. Nontender. Nervous System: No focal deficits. LABS: Sodium 130, potassium 3.2. Other labs are noted. ASSESSMENT: 1. Chronic obstructive pulmonary disease acute exacerbation with acute hypoxic and hypercapnic respiratory failure. 2. Acute right lower lobe pneumonia, possibly aspiration pneumonia with sepsis, present on admission. 3. Alcohol intoxication, acute. 4. Change in mental status, acute metabolic encephalopathy multifactorial. 5. Acute delirium tremens. 6. Hyponatremia. 7. Increased AST/ALT possibly alcoholic hepatitis. 8. Elevated creatinine with mild creatinine kinase with mild rhabdomyolysis. 9. Possible acute urinary tract infection present on admission. 10.History of asthma. 11.History of chronic obstructive pulmonary disease. 12.History of pneumonia. 13.History of seasonal allergies. 14.History of hysterectomy. 15.History of continued ongoing nicotine dependence. 16.NO CODE, NO CPR, NO VENT. RECOMMENDATIONS AND DISCUSSION: Continue current symptomatic treatment. Continue the intensive bronchodilators. Continue with steroids and antibiotics. Continue the rest of medications. Otherwise, monitor blood sugars closely. WA protocol. Guarded prognosis because of multiple complex medical issues. Further recommendations to follow. crisis worker and Case Management to evaluate the home situation. Speech pathology also been consulted. MMODL / IJN: [id number] /
[2020-12-27] MEDS: HALOPERIDOL LACTATE 5 MG/ML 1 ML VIAL IM PRN (22:06)
[2020-12-28] MEDS: LORazepam 2 MG/ML INJ IV PRN ×3 (02:02→20:37)
[2020-12-28 06:40] LABS: Glucose,Whole Blood 138 mg/dL (75-99)
[2020-12-28] MEDS: methylPREDNISolone SOD SUCCI 125 MG/2 ML VIAL IV SCH ×3 (06:42→18:13)
[2020-12-28] MEDS: INSULIN ASPART (NovoLOG) 100 UNIT/ML VIAL SQ SCH ×4 (06:44→21:12)
[2020-12-28] MEDS: THIAMINE 100 MG TAB PO SCH ×2 (06:45→18:19)
[2020-12-28 07:53] LABS: African American GFR (CKD) >90 (>60 ml/min/1.73 sqM); Anion Gap 4 mmol/L; Blood Urea Nitrogen 20 mg/dL (7-17); Calcium 9.5 mg/dL (8.4-10.2); Carbon Dioxide 36 mmol/L (22-30); Chloride 94 mmol/L (98-107); Glucose 138 mg/dL (74-99); Non-African American GFR(CKD) >90 (>60 ml/min/1.73 sqM); Potassium 4.1 mmol/L (3.5-5.1); Sodium 134 mmol/L (137-145)
--- NOTE | 2020-12-28 08:33 | XR ---
EXAMINATION TYPE: XR chest 1V portable DATE OF EXAM: 12/28/2020 COMPARISON: Chest x-ray 12/26/2020 HISTORY: Shortness of breath, right lower lobe pneumonia TECHNIQUE: Single frontal view of the chest is obtained. FINDINGS: There is pleural effusion or pneumothorax seen. Patchy basilar density is noted. The card iac silhouette size is within normal limits. The osseous structures are intact. Patient is rotated. There are overlying leads. Aorta is dense. IMPRESSION: Basilar atelectasis, correlate to exclude pneumonia, follow-up PA and lateral chest x-ra y suggested when stable.
[2020-12-28] MEDS: SYMBICORT 160-4.5 MCG INHALER INHALATION SCH ×2 (08:44→19:48)
[2020-12-28] MEDS: IPRATROPIUM-ALBUTEROL 3 ML NEB INHALATION SCH ×4 (08:44→19:48)
--- NOTE | 2020-12-28 10:02 | P.PN ---
Subjective Patient is seen in follow-up for hyponatremia. Sodium level 134 today. Oral intake is poor. Patient is not a reliable historian. Vital signs are stable. General: The patient appeared well nourished and normally developed. HEENT: Head exam is unremarkable. Neck is without jugular venous distension. LUNGS: Breath sounds decreased. HEART: Rate and Rhythm are regular. ABDOMEN: Soft, no distention. EXTREMITITES: No edema. Objective - Vital Signs Vital signs: Vital Signs Temp 97.8 F 12/28/20 09:30 Pulse 97 12/28/20 09:30 Resp 20 12/28/20 09:30 BP 138/92 12/28/20 09:30 Pulse Ox 93 L 12/28/20 09:30 Intake & Output 12/27/20 12/28/20 12/28/20 18:59 06:59 18:59 Intake Total 358 240 0 Balance 358 240 0 Weight 47.5 kg Intake: Oral 358 240 0 Other: # Voids 2 # Bowel Movements 1 - Labs CBC & Chem 7: 12/26/20 09:07 12/28/20 07:17 Labs: Abnormal Lab Results - Last 24 Hours (Table) 12/27/20 12/27/20 12/27/20 Range/Units 11:36 13:59 17:04 Sodium 130 L (137-145) mmol/L Chloride (98-107) mmol/L Carbon Dioxide (22-30) mmol/L BUN (7-17) mg/dL Creatinine (0.52-1.04) mg/dL Glucose (74-99) mg/dL POC Glucose (mg/dL) 225 H 156 H (75-99) mg/dL Ammonia (<30) umol/L 12/27/20 12/28/20 12/28/20 Range/Units 20:31 06:28 07:17 Sodium 134 L (137-145) mmol/L Chloride 94 L (98-107) mmol/L Carbon Dioxide 36 H (22-30) mmol/L BUN 20 H (7-17) mg/dL Creatinine 0.41 L (0.52-1.04) mg/dL Glucose 138 H (74-99) mg/dL POC Glucose (mg/dL) 135 H 138 H (75-99) mg/dL Ammonia (<30) umol/L 07/20/21 Range/Units 07:17 Sodium (137-145) mmol/L Chloride (98-107) mmol/L Carbon Dioxide (22-30) mmol/L BUN (7-17) mg/dL Creatinine (0.52-1.04) mg/dL Glucose (74-99) mg/dL POC Glucose (mg/dL) (75-99) mg/dL Ammonia 32 H (<30) umol/L Microbiology - Last 24 Hours (Table) 12/26/20 12:02 Blood Culture - Preliminary Blood No Growth after 24 hours Assessment and Plan Plan: Assessment: 1. Hyponatremia from poor solute intake. Sodium level 134 this morning. She did receive D5W yesterday to prevent rapid correction. Urine sodium less than 10 and urine osmolality 236. TSH normal. 2. Alcohol abuse. 3. History of COPD. Plan: Currently off all IV fluids. Encouraged oral intake.
--- NOTE | 2020-12-28 10:03 | P.PN ---
Subjective Progress Note Date: 12/28/20 Principal diagnosis: Acute exacerbation of COPD, aspiration pneumonia This is a 65-year-old white female patient with past medical history of daily EtOH abuse, 2 pack a day smoker, COPD on home oxygen, who came into the emergency department on 12/25/2020 for evaluation of altered mental status area patient was accompanied by her daughter and her brother. Family reported that the patient had a significant history of alcohol abuse and her last drink was that the prior to the ER admission. She seemed very confused, and the confusion continued the next day and patient continued to have an abnormal gait. She was noted to be very short of breath. She does have a history of COPD however does not use any inhalers or nebulizer treatments. Denies history of sick contacts. The daughter stated that patient has been noncompliant with her medications. She denied any reports of chest pain. No fever or chills. No prior history of heart failure. No nausea vomiting or diarrhea, patient has had significant withdrawal from alcohol. Brain CT showed mild atrophy and chronic small vessel ischemia, no acute intracranial abnormality. Chest x-ray showed mild interstitial basilar pulmonary infiltrates. Labs revealed CBC within normal limits, coagulation profile was within normal limits, serum sodium was 116, potassium is 4.3, chloride is 79, CO2 was 25, BUN was 7, creatinine 0.77, serum osmolality was low at 254, AST was 70, ALT was 52, alkaline phosphatase was 76, ammonia level was 20, CK was 248, troponin was less than 0.012, proBNP was 557, urinalysis showed cloudy urine with 1+ protein, moderate blood, large amount of leuks, there were 13 of white cells, and moderate bacteria. Urine osmolality was 236, urine random sodium was less than 10. Urine drug screen was negative, serum alcohol was 45, salicylates was less than 1, acetaminophen level was less than 10, COVID-19 PCR was negative. Patient did have a low-grade fever in the emergency department, she required supplemental oxygen she is currently on 4 L of oxygen. She was 86% on room air, she was quite tachypneic and short of breath, she was hypertensive, with a blood pressure of 219/105, and very confused. She was given Ativan for possible EtOH withdrawal syndrome, she was started on nebulized bronchodilators, and antibiotics in the form of Rocephin for possibility of aspiration pneumonia. She was also given a dose of Lasix for increased shortness of breath, pulmonary congestion, and she seems to have improved with those interventions. Her blood gas showed pO2 of 70, pCO2 of 65, and pH of 7.28 consistent with acute on chronic hypoxic and hypercapnic respiratory failure. Today's chest x-ray shows mild basilar pulmonary infiltrates and atelectasis improving compared to yesterday's chest x-ray. However she still quite bronchospastic, very congested and short of breath. On 12/27/2020 patient is seen in follow-up on selective care unit. She is resting comfortably in bed, likely on 8 L of oxygen, she did wear BiPAP overnight. She does breathe more comfortably today, appears to be less congestive bronchospastic. She is more awake, and following commands, although remains confused. She does attend get very restless, impulsive and sometimes agitated. She remains on CIWA protocol. Today's labs have been reviewed. BMP was done only, sodium is improving and is up to 134 on today's labs, potassium is 3.9, chloride is 91, CO2 33, BUN of 19, creatinine 0.57, BNP was 557, t roponin was negative at less than 0.012. He remains on Zosyn for possibility of aspiration pneumonia. She remains on breathing treatments. Her daughters are at the bedside, they state the patient used to follow with Dr. Gore in the pulmonary clinic however has not seen him in quite some time. They stated the patient is noncompliant, she still drinks and smokes quite extensively. Her home oxygen was taken back by the [facility], patient had not been wearing her hearing it lately. On 12/28/2020 patient seen in follow-up patient is seen in follow-up on selective care unit, she remains confused, she is a bit more lethargic on today's exam, there is congested, she is on 8 L of oxygen pulse ox of 93%, she has a loose congested cough, she is at times able to bring up some tannish colored phlegm. She is afebrile, hemodynamically stable, no BiPAP support last night. Remains on antibiotics in the form of Zosyn, patient is on breathing treatments, remains on IV steroids. She continues on CIWA protocol, she is on Ativan on hold all on as-needed basis. Today's labs have been reviewed serum sodium is improving and is up to 134, potassium is 4.1, chloride is 94, CO2 is 36, B1 is 20, creatinine 0.41. Objective - Vital Signs Vital signs: Vital Signs Temp 97.8 F 12/28/20 09:30 Pulse 97 12/28/20 09:30 Resp 20 12/28/20 09:30 BP 138/92 12/28/20 09:30 Pulse Ox 93 L 12/28/20 09:30 Intake & Output 12/27/20 12/28/20 12/28/20 18:59 06:59 18:59 Intake Total 358 240 0 Balance 358 240 0 Weight 47.5 kg Intake: Oral 358 240 0 Other: # Voids 2 # Bowel Movements 1 - Exam GENERAL EXAM: A bit more lethargic, diffuse, and oriented to self only on today's exam 65-year-old white female, on 8 L of oxygen with a pulse ox of 91%, congestive cough, diffuse rhonchi and wheezing HEAD: Normocephalic/atraumatic. EYES: Normal reaction of pupils, equal size. Conjunctiva pink, sclera white. NOSE: Clear with pink turbinates. THROAT: No erythema or exudates. NECK: No masses, no JVD, no thyroid enlargement, no adenopathy. CHEST: No chest wall deformity. Symmetrical expansion. LUNGS: Equal air entry with diffuse wheezes and rhonchi CVS: Regular rate and rhythm, normal S1 and S2, no gallops, no murmurs, no rubs ABDOMEN: Soft, nontender. No hepatosplenomegaly, normal bowel sounds, no guarding or rigidity. EXTREMITIES: No clubbing, no edema, no cyanosis, 2+ pulses and upper and lower extremities. MUSCULOSKELETAL: Muscle strength and tone normal. SPINE: No scoliosis or deformity SKIN: No rashes CENTRAL NERVOUS SYSTEM: Lethargic, confused and oriented -1. No focal deficits, tone is normal in all 4 extremities. - Labs CBC & Chem 7: 12/26/20 09:07 12/28/20 07:17 Labs: Abnormal Lab Results - Last 24 Hours (Table) 12/27/20 12/27/20 12/27/20 Range/Units 11:36 13:59 17:04 Sodium 130 L (137-145) mmol/L Chloride (98-107) mmol/L Carbon Dioxide (22-30) mmol/L BUN (7-17) mg/dL Creatinine (0.52-1.04) mg/dL Glucose (74-99) mg/dL POC Glucose (mg/dL) 225 H 156 H (75-99) mg/dL Ammonia (<30) umol/L 12/27/20 12/28/20 12/28/20 Range/Units 20:31 06:28 07:17 Sodium 134 L (137-145) mmol/L Chloride 94 L (98-107) mmol/L Carbon Dioxide 36 H (22-30) mmol/L BUN 20 H (7-17) mg/dL Creatinine 0.41 L (0.52-1.04) mg/dL Glucose 138 H (74-99) mg/dL POC Glucose (mg/dL) 135 H 138 H (75-99) mg/dL Ammonia (<30) umol/L 12/28/20 Range/Units 07:17 Sodium (137-145) mmol/L Chloride (98-107) mmol/L Carbon Dioxide (22-30) mmol/L BUN (7-17) mg/dL Creatinine (0.52-1.04) mg/dL Glucose (74-99) mg/dL POC Glucose (mg/dL) (75-99) mg/dL Ammonia 32 H (<30) umol/L Microbiology - Last 24 Hours (Table) 12/26/20 12:02 Blood Culture - Preliminary Blood No Growth after 24 hours Assessment and Plan Plan: Assessment: #1. Acute on chronic hypoxic and hypercapnic respiratory failure related to acute exacerbation of COPD and possibility of aspiration pneumonia #2. Altered mental status, brain CT showed no acute intracranial abnormality. This is likely related to acute metabolic encephalopathy related to acute on chronic hypercapnic and hypoxic respiratory failure, aspiration pneumonia, acute exacerbation of COPD, acute EtOH withdrawal and hyponatremia #3. Acute hyponatremia, possibly hypervolemia, improved with Lasix. Low Sodium is also likely related to chronic EtOH #4. Chronic EtOH #5. Acute EtOH withdrawal, on CIWA protocol #6. Advanced COPD on home oxygen, underlying baseline lung function is unknown #7. Medical noncompliance #8. 2 pack a day smoker Plan: Continue antibiotics Breathing treatments Chest x-ray reviewed Continue same dose IV steroids and breathing treatments Maintain aspiration precautions Maintain safety precautions Continue CIWA protocol Obtain speech evaluation I performed a history & physical examination of the patient and discussed their management with my nurse practitioner, Zuleyma Preston. I reviewed the nurse practitioner's note and agree with the documented findings and plan of care. Lung sounds are positive for diminished breath sounds. The findings and the impression was discussed with the patient. I attest to the documentation by the nurse practitioner. Time with Patient: Less than 30
[2020-12-28] MEDS: NICOTINE 21MG/24HR PATCH TRANSDERM SCH (10:14)
[2020-12-28] MEDS: PIPERACILLIN-TAZOBACTAM 3.375 GM in SODIUM CHLORIDE 0.9% 100 ML IVPB SCH ×2 (10:15→18:11)
[2020-12-28 11:26] LABS: Glucose,Whole Blood 117 mg/dL (75-99)
--- NOTE | 2020-12-28 13:26 | P.PN ---
Subjective This is a pleasant 65 y old female with past medical history of COPD/asthma: Abuse while she drinks beers daily and smoker about 2 packs per day. He brought by family for unsteady gait and weakness on 12/25. Today when I saw the patient she wishes in the hospital but she could not tell which hospital, she thought this 1973 and she thought the president is jayla also she thought she came to the hospital because she passed out, it looks very lethargic and confused and she does not follow commands with slow response. She is hypoxic on 8 L oxygen via nasal cannula saturating 92%. Patient had low- grade fever of 100 yesterday. Resolved Vitas looks stable Plater Hot Dip following the case for hyponatremia and she is on D5W at 100 mL by hollow tile partition erector to slow the rate of correction, today her sodium went up from 130 up to 134, liver enzymes are mildly elevated. TSH is normal at 2.5. CBC from yesterday is unremarkable. BNP is 557. She kept on Zosyn and Solu-Medrol currently. She is on CIWA protocol, she is on Haldol and Ativan as needed. Objective - Vital Signs Vital signs: Vital Signs Temp 97.6 F 12/28/20 12:47 Pulse 95 12/28/20 12:47 Resp 20 12/28/20 12:47 BP 141/79 12/28/20 12:47 Pulse Ox 94 L 12/28/20 12:47 Intake & Output 12/27/20 12/28/20 12/28/20 18:59 06:59 18:59 Intake Total 358 240 0 Balance 358 240 0 Weight 47.5 kg Intake: Oral 358 240 0 Other: Voiding Method Diaper External Catheter # Voids 2 1 # Bowel Movements 1 1 - Exam -GENERAL: The patient is very confused and lethargic HEENT: Pupils are round and equally reacting to light. EOMI. No scleral icterus. No conjunctival pallor. Normocephalic, atraumatic. No pharyngeal erythema. No thyromegaly. CARDIOVASCULAR: S1 and S2 present. No murmurs, rubs, or gallops. -PULMONARY: Chest is clear to auscultation, cathetered wheezing and crepitation ABDOMEN: Soft, nontender, nondistended, normoactive bowel sounds. No palpable organomegaly. MUSCULOSKELETAL: No joint swelling or deformity. EXTREMITIES: No cyanosis, clubbing, or pedal edema. NEUROLOGICAL: Gross neurological examination did not reveal any focal deficits. SKIN: No rashes. no petechiae. - Labs CBC & Chem 7: 12/26/20 09:07 12/28/20 07:17 Labs: Abnormal Lab Results - Last 24 Hours (Table) 12/27/20 12/27/20 12/27/20 Range/Units 13:59 17:04 20:31 Sodium 130 L (137-145) mmol/L Chloride (98-107) mmol/L Carbon Dioxide (22-30) mmol/L BUN (7-17) mg/dL Creatinine (0.52-1.04) mg/dL Glucose (74-99) mg/dL POC Glucose (mg/dL) 156 H 135 H (75-99) mg/dL Ammonia (<30) umol/L 12/28/20 12/28/20 12/28/20 Range/Units 06:28 07:17 07:17 Sodium 134 L (137-145) mmol/L Chloride 94 L (98-107) mmol/L Carbon Dioxide 36 H (22-30) mmol/L BUN 20 H (7-17) mg/dL Creatinine 0.41 L (0.52-1.04) mg/dL Glucose 138 H (74-99) mg/dL POC Glucose (mg/dL) 138 H (75-99) mg/dL Ammonia 32 H (<30) umol/L 12/28/20 Range/Units 11:24 Sodium (137-145) mmol/L Chloride (98-107) mmol/L Carbon Dioxide (22-30) mmol/L BUN (7-17) mg/dL Creatinine (0.52-1.04) mg/dL Glucose (74-99) mg/dL POC Glucose (mg/dL) 117 H (75-99) mg/dL Ammonia (<30) umol/L Microbiology - Last 24 Hours (Table) 12/26/20 12:02 Blood Culture - Preliminary Blood No Growth after 24 hours Assessment and Plan Assessment: Acute COPD exacerbation Metabolic and toxic encephalopathy Possible aspiration pneumonia Alcohol abuse and withdrawal Hyponatremia Plan: This is a pleasant 65 years old female who presents with hypoxia, and AMS. C ontinue with steroids Solu-Medrol, continue with Zosyn. Plater Hot Dip on the case for hyponatremia which is improving significantly today. Continue with CIWA protocol, continue with Haldol and Ativan as needed Labs and medication were reviewed.. Continue same treatment. Continue with symptomatic treatment. Resume home medication. Monitor lytes and vitals. DVT and GI prophylaxis. Further recommendationsas per clinical course of the patient DVT prophylaxis: Mechanical GI Prophylaxis: Pepcid Prognosis is guarded
[2020-12-28 16:45] LABS: Glucose,Whole Blood 127 mg/dL (75-99)
[2020-12-28 21:07] LABS: Glucose,Whole Blood 131 mg/dL (75-99)
[2020-12-28] MEDS: FAMOTIDINE 20 MG/2 ML VIAL IV SCH (21:19)
[2020-12-29] MEDS: methylPREDNISolone SOD SUCCI 125 MG/2 ML VIAL IV SCH ×4 (00:02→18:57)
[2020-12-29] MEDS: PIPERACILLIN-TAZOBACTAM 3.375 GM in SODIUM CHLORIDE 0.9% 100 ML IVPB SCH ×3 (00:02→17:20)
[2020-12-29 06:03] LABS: Glucose,Whole Blood 138 mg/dL (75-99)
[2020-12-29] MEDS: INSULIN ASPART (NovoLOG) 100 UNIT/ML VIAL SQ SCH ×4 (06:14→21:51)
[2020-12-29] MEDS: THIAMINE 100 MG TAB PO SCH ×3 (06:25→17:23)
[2020-12-29] MEDS: IPRATROPIUM-ALBUTEROL 3 ML NEB INHALATION SCH ×4 (07:39→19:41)
[2020-12-29] MEDS: SYMBICORT 160-4.5 MCG INHALER INHALATION SCH ×2 (07:39→19:41)
[2020-12-29] MEDS: NICOTINE 21MG/24HR PATCH TRANSDERM SCH (09:17)
[2020-12-29] MEDS: FAMOTIDINE 20 MG/2 ML VIAL IV SCH ×2 (09:17→21:52)
[2020-12-29] MEDS: LORazepam 2 MG/ML INJ IV PRN ×3 (10:55→17:00)
--- NOTE | 2020-12-29 11:08 | P.PN ---
Subjective Progress Note Date: 12/29/20 Principal diagnosis: Acute exacerbation of chronic obstructive pulmonary disease, complicated by right lower lobe pneumonia This is a 65-year-old white female patient with past medical history of daily EtOH abuse, 2 pack a day smoker, COPD on home oxygen, who came into the emerg ency department on 12/25/2020 for evaluation of altered mental status area patient was accompanied by her daughter and her brother. Family reported that the patient had a significant history of alcohol abuse and her last drink was that the prior to the ER admission. She seemed very confused, and the confusion continued the next day and patient continued to have an abnormal gait. She was noted to be very short of breath. She does have a history of COPD however does not use any inhalers or nebulizer treatments. Denies history of sick contacts. The daughter stated that patient has been noncompliant with her medications. She denied any reports of chest pain. No fever or chills. No prior history of heart failure. No nausea vomiting or diarrhea, patient has had significant withdrawal from alcohol. Brain CT showed mild atrophy and chronic small vessel ischemia, no acute intracranial abnormality. Chest x-ray showed mild interstitial basilar pulmonary infiltrates. Labs revealed CBC within normal limits, coagulation profile was within normal limits, serum sodium was 116, potassium is 4.3, chloride is 79, CO2 was 25, BUN was 7, creatinine 0.77, serum osmolality was low at 254, AST was 70, ALT was 52, alkaline phosphatase was 76, ammonia level was 20, CK was 248, troponin was less than 0.012, proBNP was 557, urinalysis showed cloudy urine with 1+ protein, moderate blood, large amount of leuks, there were 13 of white cells, and moderate bacteria. Urine osmolality was 236, urine random sodium was less than 10. Urine drug screen was negative, serum alcohol was 45, salicylates was less than 1, acetaminophen level was less than 10, COVID-19 PCR was negative. Patient did have a low-grade fever in the emergency department, she required supplemental oxygen she is currently on 4 L of oxygen. She was 86% on room air, she was quite tachypneic and short of breath, she was hypertensive, with a blood pressure of 219/105, and very confused. She was given Ativan for possible EtOH withdrawal syndrome, she was started on nebulized bronchodilators, and antibiotics in the form of Rocephin for possibility of aspiration pneumonia. She was also given a dose of Lasix for increased shortness of breath, pulmonary congestion, and she seems to have improved with those interventions. Her blood gas showed pO2 of 70, pCO2 of 65, and pH of 7.28 consistent with acute on chronic hypoxic and hypercapnic respiratory failure. Today's chest x-ray shows mild basilar pulmonary infiltrat es and atelectasis improving compared to yesterday's chest x-ray. However she still quite bronchospastic, very congested and short of breath. On 12/27/2020 patient is seen in follow-up on selective care unit. She is resting comfortably in bed, likely on 8 L of oxygen, she did wear BiPAP overnight. She does breathe more comfortably today, appears to be less congestive bronchospastic. She is more awake, and following commands, although remains confused. She does attend get very restless, impulsive and sometimes agitated. She remains on CIWA protocol. Today's labs have been reviewed. BMP was done only, sodium is improving and is up to 134 on today's labs, potassium is 3.9, chloride is 91, CO2 33, BUN of 19, creatinine 0.57, BNP was 557, troponin was negative at less than 0.012. He remains on Zosyn for possibility of aspiration pneumonia. She remains on breathing treatments. Her daughters are at the bedside, they state the patient used to follow with Dr. Gore in the pulmonary clinic however has not seen him in quite some time. They stated the patient is noncompliant, she still drinks and smokes quite extensively. Her home oxygen was taken back by the [facility], patient had not been wearing her hearing it lately. On 12/28/2020 patient seen in follow-up patient is seen in follow-up on selective care unit, she remains confused, she is a bit more lethargic on today' s exam, there is congested, she is on 8 L of oxygen pulse ox of 93%, she has a loose congested cough, she is at times able to bring up some tannish colored phlegm. She is afebrile, hemodynamically stable, no BiPAP support last night. Remains on antibiotics in the form of Zosyn, patient is on breathing treatments, remains on IV steroids. She continues on CIWA protocol, she is on Ativan on hold all on as-needed basis. Today's labs have been reviewed serum sodium is improving and is up to 134, potassium is 4.1, chloride is 94, CO2 is 36, B1 is 20, creatinine 0.41. The patient is seen today 12/29/2020 in follow-up on the selective care unit. She is currently awake. Slow to respond. Remains on 10 L high flow nasal cannula with O2 saturation of 94%. She's been afebrile. Somewhat hypertensive. Blood cultures reveal no growth. Urine culture reveals no growth. Blood glucose 138. She remains on CIWA protocol. Continued on DuoNeb inhalations, IV Solu-Medrol, Symbicort. NicoDerm patch in place. Remains on Zosyn. Objective - Vital Signs Vital signs: Vital Signs Temp 98.2 F 12/29/20 08:00 Pulse 76 12/29/20 08:00 Resp 18 12/29/20 08:00 BP 183/92 12/29/20 08:00 Pulse Ox 94 L 12/29/20 08:00 Intake & Output 12/28/20 12/29/20 12/29/20 18:59 06:59 18:59 Intake Total 0 Output Total 2 Balance 0 -2 Weight 48.5 kg Intake: Oral 0 Output: Urine 1 Stool 1 Other: Voiding Method Diaper Diaper Diaper # Voids 1 1 # Bowel Movements 1 1 - Exam GENERAL EXAM: A bit more lethargic, diffuse, and oriented to self only 65-year-old female, on 10 L of oxygen with a pulse ox of 94%, congestive cough HEAD: Normocephalic/atraumatic. EYES: Normal reaction of pupils, equal size. Conjunctiva pink, sclera white. NOSE: Clear with pink turbinates. THROAT: No erythema or exudates. NECK: No masses, no JVD, no thyroid enlargement, no adenopathy. CHEST: No chest wall deformity. Symmetrical expansion. LUNGS: Equal air entry with diffuse wheezes and rhonchi CVS: Regular rate and rhythm, normal S1 and S2, no gallops, no murmurs, no rubs ABDOMEN: Soft, nontender. No hepatosplenomegaly, normal bowel sounds, no guarding or rigidity. EXTREMITIES: No clubbing, no edema, no cyanosis, 2+ pulses and upper and lower extremities. MUSCULOSKELETAL: Muscle strength and tone normal. SPINE: No scoliosis or deformity SKIN: No rashes CENTRAL NERVOUS SYSTEM: Lethargic, confused and oriented -1. No focal deficits, tone is normal in all 4 extremities. - Labs CBC & Chem 7: 12/26/20 09:07 12/28/20 07:17 Labs: Abnormal Lab Results - Last 24 Hours (Table) 12/28/20 12/28/20 12/28/20 Range/Units 11:24 16:44 21:06 POC Glucose (mg/dL) 117 H 127 H 131 H (75-99) mg/dL 12/29/20 Range/Units 06:02 POC Glucose (mg/dL) 138 H (75-99) mg/dL Microbiology - Last 24 Hours (Table) 12/26/20 12:02 Blood Culture - Preliminary Blood No Growth after 48 hours Assessment and Plan Assessment: 1 Acute on chronic hypoxic and hypercapnic respiratory failure related to acute exacerbation of COPD and possibility of aspiration pneumonia 2 Altered mental status, brain CT showed no acute intracranial abnormality. This is likely related to acute metabolic encephalopathy related to acute on chronic hypercapnic and hypoxic respiratory failure, aspiration pneumonia, acute exacerbation of COPD, acute EtOH withdrawal and hyponatremia 3 Acute hyponatremia, possibly hypervolemia, improved with Lasix. Low Sodium is also likely related to chronic EtOH 4 Chronic EtOH 5 Acute EtOH withdrawal, on CIWA protocol 6 Advanced COPD on home oxygen, underlying baseline lung function is unknown 7 Medical noncompliance 8 2 pack a day smoker Plan: The patient was seen and evaluated by Dr. Segura Continue with the current treatment plan Continue to titrate the FiO2 as tolerated Continue aspiration precautions Remains in the CIWA protocol We will continue to follow I, the cosigning physician, performed a history & physical examination of the patient. Lungs sounds bilateral end expiratory wheeze, diminished Maintaining good O2 saturations in the 90s on 10 L high flow nasal cannula. I discussed the assessment and plan of care with my nurse practitioner, Bell Stoner. I attest to the above note as dictated by her.
[2020-12-29 11:38] LABS: Glucose,Whole Blood 113 mg/dL (75-99)
--- NOTE | 2020-12-29 12:39 | P.PN ---
Subjective Patient is seen in follow-up for hyponatremia. Sodium level 134 yesterday. Oral intake is poor. Patient is not a reliable historian. Confused. Vital signs are stable. General: The patient appeared well nourished and normally developed. HEENT: Head exam is unremarkable. Neck is without jugular venous distension. LUNGS: Breath sounds decreased. HEART: Rate and Rhythm are regular. ABDOMEN: Soft, no distention. EXTREMITITES: No edema. Objective - Vital Signs Vital signs: Vital Signs Temp 97.6 F 12/29/20 12:00 Pulse 72 12/29/20 12:00 Resp 16 12/29/20 12:00 BP 152/88 12/29/20 12:00 Pulse Ox 94 L 12/29/20 12:00 Intake & Output 12/28/20 12/29/20 12/29/20 18:59 06:59 18:59 Intake Total 0 Output Total 2 Balance 0 -2 Weight 48.5 kg Intake: Oral 0 Output: Urine 1 Stool 1 Other: Voiding Method Diaper Diaper Diaper # Voids 1 1 2 # Bowel Movements 1 1 1 - Labs CBC & Chem 7: 12/26/20 09:07 12/28/20 07:17 Labs: Abnormal Lab Results - Last 24 Hours (Table) 12/28/20 12/28/20 12/29/20 Range/Units 16:44 21:06 06:02 POC Glucose (mg/dL) 127 H 131 H 138 H (75-99) mg/dL 12/29/20 Range/Units 11:36 POC Glucose (mg/dL) 113 H (75-99) mg/dL Microbiology - Last 24 Hours (Table) 12/26/20 12:02 Blood Culture - Preliminary Blood No Growth after 48 hours Assessment and Plan Plan: Assessment: 1. Hyponatremia from poor solute intake. Sodium level 134 yesterday. Urine sodium less than 10 and urine osmolality 236. TSH normal. 2. Alcohol abuse. 3. History of COPD. Plan: Currently off all IV fluids. Encouraged oral intake. Repeat labs in the morning.
--- NOTE | 2020-12-29 13:43 | P.PN ---
Subjective This is a pleasant 65 y old female with past medical history of COPD/asthma: Abuse while she drinks beers daily and smoker about 2 packs per day. He brought by family for unsteady gait and weakness on 12/25. Today when I saw the patient she wishes in the hospital but she could not tell which hospital, she thought this 1973 and she thought the president is jayla also she thought she came to the hospital because she passed out, it looks very lethargic and confused and she does not follow commands with slow response. She is hypoxic on 8 L oxygen via nasal cannula saturating 92%. Patient had low- grade fever of 100 yesterday. Resolved Vitas looks stable Territory Sales Professional following the case for hyponatremia and she is on D5W at 100 mL by leaf binner to slow the rate of correction, today her sodium went up from 130 up to 134, liver enzymes are mildly elevated. TSH is normal at 2.5. CBC from yesterday is unremarkable. BNP is 557. She kept on Zosyn and Solu-Medrol currently. She is on CIWA protocol, she is on Haldol and Ativan as needed. 12/29/2020 Patient today is a little bit more awake and interactive however she is more confused than yesterday to time and place and person, but she couldn't tell she was in the hospital but today she could not know. Denies any specific symptoms however she has right-sided abdominal tenderness which looks mild rebound tenderness, no guarding. Vitals are stable but she needs higher oxygen today at 10 L/m. She is afebrile. Sodium improved to 134. No labs from today On Zosyn, Solu-Medrol and CIWA protocol. She is off IV fluids. Discussed the case with social services technician, she now has medial public guardian upon request of her family, patient lacks capacity to make medical decision currently per my evaluation Objective - Vital Signs Vital signs: Vital Signs Temp 97.6 F 12/29/20 12:00 Pulse 72 12/29/20 12:00 Resp 16 12/29/20 12:00 BP 152/88 12/29/20 12:00 Pulse Ox 94 L 12/29/20 12:00 Intake & Output 12/28/20 12/29/20 12/29/20 18:59 06:59 18:59 Intake Total 0 0 Output Total 2 Balance 0 -2 0 Weight 48.5 kg Intake: Oral 0 0 Output: Urine 1 Stool 1 Other: Voiding Method Diaper Diaper Diaper # Voids 1 1 2 # Bowel Movements 1 1 1 - Exam -GENERAL: The patient is very confused and lethargic HEENT: Pupils are round and equally reacting to light. EOMI. No scleral icterus. No conjunctival pallor. Normocephalic, atraumatic. No pharyngeal erythema. No thyromegaly. CARDIOVASCULAR: S1 and S2 present. No murmurs, rubs, or gallops. -PULMONARY: Chest is clear to auscultation, cathetered wheezing and crepitation ABDOMEN: Soft, nontender, nondistended, normoactive bowel sounds. No palpable organomegaly. MUSCULOSKELETAL: No joint swelling or deformity. EXTREMITIES: No cyanosis, clubbing, or pedal edema. NEUROLOGICAL: Gross neurological examination did not reveal any focal deficits. SKIN: No rashes. no petechiae. - Labs CBC & Chem 7: 12/26/20 09:07 12/28/20 07:17 Labs: Abnormal Lab Results - Last 24 Hours (Table) 12/28/20 12/28/20 12/29/20 Range/Units 16:44 21:06 06:02 POC Glucose (mg/dL) 127 H 131 H 138 H (75-99) mg/dL 12/29/20 Range/Units 11:36 POC Glucose (mg/dL) 113 H (75-99) mg/dL Microbiology - Last 24 Hours (Table) 12/26/20 12:02 Blood Culture - Preliminary Blood No Growth after 48 hours Assessment and Plan Assessment: Acute COPD exacerbation Metabolic and toxic encephalopathy Possible aspiration pneumonia Alcohol abuse and withdrawal Hyponatremia Plan: This is a pleasant 65 years old female who presents with hypoxia, and AMS. Continue with steroids Solu-Medrol, continue with Zosyn. Territory Sales Professional on the case for hyponatremia which is improving significantly today. Continue with CIWA protocol, continue with Haldol and Ativan as needed Patient has Public guardian Labs and medication were reviewed.. Continue same treatment. Continue with symptomatic treatment. Resume home medication. Monitor lytes and vitals. DVT and GI prophylaxis. Further recommendationsas per clinical course of the patient DVT prophylaxis: Mechanical GI Prophylaxis: Pepcid Prognosis is guarded
[2020-12-29 16:22] LABS: Glucose,Whole Blood 135 mg/dL (75-99)
[2020-12-29 21:10] LABS: Glucose,Whole Blood 137 mg/dL (75-99)
[2020-12-29] MEDS: HEPARIN SODIUM,PORCINE/PF 5,000 UNIT/0.5 ML SYRINGE SQ SCH (21:52)
[2020-12-30] MEDS: methylPREDNISolone SOD SUCCI 125 MG/2 ML VIAL IV SCH ×4 (00:01→17:12)
[2020-12-30] MEDS: PIPERACILLIN-TAZOBACTAM 3.375 GM in SODIUM CHLORIDE 0.9% 100 ML IVPB SCH ×3 (00:01→15:50)
[2020-12-30 06:14] LABS: Glucose,Whole Blood 124 mg/dL (75-99)
[2020-12-30] MEDS: INSULIN ASPART (NovoLOG) 100 UNIT/ML VIAL SQ SCH ×4 (06:19→20:15)
[2020-12-30] MEDS: THIAMINE 100 MG TAB PO SCH ×2 (06:41→17:11)
[2020-12-30] MEDS: NICOTINE 21MG/24HR PATCH TRANSDERM SCH (07:57)
[2020-12-30] MEDS: FAMOTIDINE 20 MG/2 ML VIAL IV SCH ×2 (07:57→20:15)
[2020-12-30] MEDS: IPRATROPIUM-ALBUTEROL 3 ML NEB INHALATION SCH ×4 (08:08→20:42)
[2020-12-30] MEDS: SYMBICORT 160-4.5 MCG INHALER INHALATION SCH (08:08)
--- NOTE | 2020-12-30 09:05 | P.PN ---
Subjective Patient is seen in follow-up for hyponatremia. Sodium level 134 as of December 28. Oral intake is poor. Patient is not a reliable historian. Vital signs are stable. General: The patient appeared well nourished and normally developed. HEENT: Head exam is unremarkable. Neck is without jugular venous distension. LUNGS: Breath sounds decreased. HEART: Rate and Rhythm are regular. ABDOMEN: Soft, no distention. EXTREMITITES: No edema. Objective - Vital Signs Vital signs: Vital Signs Temp 97.6 F 12/30/20 08:00 Pulse 77 12/30/20 08:19 Resp 18 12/30/20 08:00 BP 186/99 12/30/20 08:00 Pulse Ox 92 L 12/30/20 08:00 Intake & Output 12/29/20 12/30/20 12/30/20 18:59 06:59 18:59 Intake Total 60 Output Total 3 Balance 60 -3 Weight 45.5 kg Intake: Oral 60 Output: Urine 3 Other: Voiding Method Diaper Diaper Diaper # Voids 1 1 # Bowel Movements 1 - Labs CBC & Chem 7: 12/26/20 09:07 12/28/20 07:17 Labs: Abnormal Lab Results - Last 24 Hours (Table) 12/29/20 12/29/20 12/29/20 Range/Units 11:36 16:20 21:07 POC Glucose (mg/dL) 113 H 135 H 137 H (75-99) mg/dL 12/30/20 Range/Units 06:13 POC Glucose (mg/dL) 124 H (75-99) mg/dL Microbiology - Last 24 Hours (Table) 12/26/20 12:02 Blood Culture - Preliminary Blood No Growth after 72 hours Assessment and Plan Plan: Assessment: 1. Hyponatremia from poor solute intake. Sodium level 134 on December 28. Urine sodium less than 10 and urine osmolality 236. TSH normal. 2. Alcohol abuse. On CIWA protocol. 3. History of COPD. Plan: Currently off all IV fluids. Encouraged oral intake. Morning labs pending.
[2020-12-30] MEDS: HEPARIN SODIUM,PORCINE/PF 5,000 UNIT/0.5 ML SYRINGE SQ SCH ×2 (10:24→20:15)
[2020-12-30] MEDS: LORazepam 2 MG/ML INJ IV PRN (10:24)
[2020-12-30 10:37] LABS: ALT 29 U/L (4-34); African American GFR (CKD) >90 (>60 ml/min/1.73 sqM); Anion Gap 6 mmol/L; Blood Urea Nitrogen 24 mg/dL (7-17); Calcium 9.6 mg/dL (8.4-10.2); Carbon Dioxide 38 mmol/L (22-30); Chloride 95 mmol/L (98-107); Glucose 185 mg/dL (74-99); Non-African American GFR(CKD) >90 (>60 ml/min/1.73 sqM); Sodium 139 mmol/L (137-145); Total Bilirubin 0.8 mg/dL (0.2-1.3)
[2020-12-30 10:38] LABS: AST 41 U/L (14-36); Albumin 4.2 g/dL (3.5-5.0); Alkaline Phosphatase 59 U/L (38-126); Magnesium 2.1 mg/dL (1.6-2.3); Potassium 4.2 mmol/L (3.5-5.1); Total Protein 7.5 g/dL (6.3-8.2)
[2020-12-30 11:21] LABS: Basophils % (A) 0 %; Eosinophils % (A) 0 %; HGB 17.6 gm/dL (11.4-16.0); Lymphocytes # (A) 0.4 k/uL (1.0-4.8); Lymphocytes % (A) 8 %; MCH 31.4 pg (25.0-35.0); MCHC 31.6 g/dL (31.0-37.0); Mean Platelet Volume 7.3; Monocytes # (A) 0.4 k/uL (0-1.0); Monocytes % (A) 6 %; Neutrophils # (A) 4.8 k/uL (1.3-7.7); Neutrophils % (A) 84 %; Platelet Count 321 k/uL (150-450); RBC 5.61 m/uL (3.80-5.40); RDW 13.7 % (11.5-15.5); WBC 5.7 k/uL (3.8-10.6)
--- NOTE | 2020-12-30 11:26 | XR ---
EXAMINATION TYPE: XR chest 1V portable DATE OF EXAM: 12/30/2020 COMPARISON: Chest x-ray 12/28/2020 HISTORY: Right lower lobe pneumonia TECHNIQUE: Single frontal view of the chest is obtained. FINDINGS: Technique is apical lordotic and rotated. There are overlying leads. Cardiac mediastinal s ilhouette is stable. Patchy bibasilar density is noted, there is no evident pneumothorax. Prominence of the pulmonary artery could be indicative of pulmonary artery hypertension. The aorta is dense. IMPRESSION: There may be basilar atelectasis, correlate to exclude pneumonia, possible pulmonary art jose cruz hypertension, follow-up PA and lateral chest x-ray suggested to resolution.
[2020-12-30 11:27] LABS: HCT 55.9 % (34.0-46.0); MCV 99.7 fL (80.0-100.0)
[2020-12-30] MEDS: amLODIPine 5 MG TAB PO SCH (11:33)
[2020-12-30 11:42] LABS: Glucose,Whole Blood 163 mg/dL (75-99)
--- NOTE | 2020-12-30 11:57 | P.PN ---
Subjective This is a pleasant 65 y old female with past medical history of COPD/asthma: Abuse while she drinks beers daily and smoker about 2 packs per day. He brought by family for unsteady gait and weakness on 12/25. Today when I saw the patient she wishes in the hospital but she could not tell which hospital, she thought this 1973 and she thought the president is jayla also she thought she came to the hospital because she passed out, it looks very lethargic and confused and she does not follow commands with slow response. She is hypoxic on 8 L oxygen via nasal cannula saturating 92%. Patient had low- grade fever of 100 yesterday. Resolved Vitas looks stable Pattern Room Attendant following the case for hyponatremia and she is on D5W at 100 mL by plasticator to slow the rate of correction, today her sodium went up from 130 up to 134, liver enzymes are mildly elevated. TSH is normal at 2.5. CBC from yesterday is unremarkable. BNP is 557. She kept on Zosyn and Solu-Medrol currently. She is on CIWA protocol, she is on Haldol and Ativan as needed. 12/29/2020 Patient today is a little bit more awake and interactive however she is more confused than yesterday to time and place and person, but she couldn't tell she was in the hospital but today she could not know. Denies any specific symptoms however she has right-sided abdominal tenderness which looks mild rebound tenderness, no guarding. Vitals are stable but she needs higher oxygen today at 10 L/m. She is afebrile. Sodium improved to 134. No labs from today On Zosyn, Solu-Medrol and CIWA protocol. She is off IV fluids. Discussed the case with social service technician, she now has medial public guardian upon request of her family, patient lacks capacity to make medical decision currently per my evaluation 12/30/2020 Patient significantly more awake and alert today, she is oriented to place she goes in the hospital, she knows the year, she is partially oriented to person, she thought her daughter name is Shena when she told me her name is Jaimee when I talked to her. The daughter told me they agree with public guardian and the like her to go to skilled nursing for placement postdischarge. Her blood pressure was elevated today 216/104 due to steroid effect, Norvasc and hydralazine when necessary is added 1 we'll monitor blood pressure. On 8 L oxygen via nasal cannula. Liver enzymes almost normalized and her hemoglobin went up to 17.6. Sodium level normal today at 139. X-ray showing bilateral atelectasis and pulmonary hypertension This remains on some Medrol 60 mg and Zosyn. Objective - Vital Signs Vital signs: Vital Signs Temp 97.6 F 12/30/20 11:07 Pulse 78 12/30/20 11:17 Resp 18 12/30/20 11:07 BP 216/104 12/30/20 11:07 Pulse Ox 98 12/30/20 11:07 Intake & Output 12/29/20 12/30/20 12/30/20 18:59 06:59 18:59 Intake Total 60 Output Total 3 Balance 60 -3 Weight 45.5 kg Intake: Oral 60 Output: Urine 3 Other: Voiding Method Diaper Diaper Diaper # Voids 1 1 # Bowel Movements 1 - Exam -GENERAL: The patient is very confused and lethargic HEENT: Pupils are round and equally reacting to light. EOMI. No scleral icterus. No conjunctival pallor. Normocephalic, atraumatic. No pharyngeal erythema. No thyromegaly. CARDIOVASCULAR: S1 and S2 present. No murmurs, rubs, or gallops. -PULMONARY: Chest is clear to auscultation, cathetered wheezing and crepitation ABDOMEN: Soft, nontender, nondistended, normoactive bowel sounds. No palpable organomegaly. MUSCULOSKELETAL: No joint swelling or deformity. EXTREMITIES: No cyanosis, clubbing, or pedal edema. NEUROLOGICAL: Gross neurological examination did not reveal any focal deficits. SKIN: No rashes. no petechiae. - Labs CBC & Chem 7: 12/30/20 09:16 12/30/20 09:16 Labs: Abnormal Lab Results - Last 24 Hours (Table) 12/29/20 12/29/20 12/30/20 Range/Units 16:20 21:07 06:13 RBC (3.80-5.40) m/uL Hgb (11.4-16.0) gm/dL Hct (34.0-46.0) % Lymphocytes # (1.0-4.8) k/uL Chloride (98-107) mmol/L Carbon Dioxide (22-30) mmol/L BUN (7-17) mg/dL Creatinine (0.52-1.04) mg/dL Glucose (74-99) mg/dL POC Glucose (mg/dL) 135 H 137 H 124 H (75-99) mg/dL AST (14-36) U/L 12/30/20 12/30/20 12/30/20 Range/Units 09:16 09:16 11:39 RBC 5.61 H (3.80-5.40) m/uL Hgb 17.6 H (11.4-16.0) gm/dL Hct 55.9 H (34.0-46.0) % Lymphocytes # 0.4 L (1.0-4.8) k/uL Chloride 95 L (98-107) mmol/L Carbon Dioxide 38 H (22-30) mmol/L BUN 24 H (7-17) mg/dL Creatinine 0.41 L (0.52-1.04) mg/dL Glucose 185 H (74-99) mg/dL POC Glucose (mg/dL) 163 H (75-99) mg/dL AST 41 H (14-36) U/L Microbiology - Last 24 Hours (Table) 12/26/20 12:02 Blood Culture - Preliminary Blood No Growth after 72 hours Assessment and Plan Assessment: Acute COPD exacerbation Metabolic and toxic encephalopathy Possible aspiration pneumonia Alcohol abuse and withdrawal Hyponatremia Plan: This is a pleasant 65 years old female who presents with hypoxia, and AMS. Continue with steroids Solu-Medrol, continue with Zosyn. Pattern Room Attendant on the case for hyponatremia which is resolved Continue with CIWA protocol, continue with Haldol and Ativan as needed Patient has Public guardian, family wanted patient to go to skilled nursing for placement post discharge Continue with steroids and monitor oxygen level Labs and medication were reviewed.. Continue same treatment. Continue with symptomatic treatment. Resume home medication. Monitor lytes and vitals. DVT and GI prophylaxis. Further recommendationsas per clinical course of the patient DVT prophylaxis: Mechanical GI Prophylaxis: Pepcid Prognosis is guarded
[2020-12-30] MEDS: NYSTATIN 100,000 UNIT/ML SUSP 500,000 UNIT/5 ML CUP PO SCH ×3 (12:54→20:14)
--- NOTE | 2020-12-30 13:28 | P.PN ---
Subjective Progress Note Date: 12/30/20 Principal diagnosis: Acute exacerbation of chronic obstructive pulmonary disease, complicated by right lower lobe pneumonia This is a 65-year-old white female patient with past medical history of daily EtOH abuse, 2 pack a day smoker, COPD on home oxygen, who came into the emerg ency department on 12/25/2020 for evaluation of altered mental status area patient was accompanied by her daughter and her brother. Family reported that the patient had a significant history of alcohol abuse and her last drink was that the prior to the ER admission. She seemed very confused, and the confusion continued the next day and patient continued to have an abnormal gait. She was noted to be very short of breath. She does have a history of COPD however does not use any inhalers or nebulizer treatments. Denies history of sick contacts. The daughter stated that patient has been noncompliant with her medications. She denied any reports of chest pain. No fever or chills. No prior history of heart failure. No nausea vomiting or diarrhea, patient has had significant withdrawal from alcohol. Brain CT showed mild atrophy and chronic small vessel ischemia, no acute intracranial abnormality. Chest x-ray showed mild interstitial basilar pulmonary infiltrates. Labs revealed CBC within normal limits, coagulation profile was within normal limits, serum sodium was 116, potassium is 4.3, chloride is 79, CO2 was 25, BUN was 7, creatinine 0.77, serum osmolality was low at 254, AST was 70, ALT was 52, alkaline phosphatase was 76, ammonia level was 20, CK was 248, troponin was less than 0.012, proBNP was 557, urinalysis showed cloudy urine with 1+ protein, moderate blood, large amount of leuks, there were 13 of white cells, and moderate bacteria. Urine osmolality was 236, urine random sodium was less than 10. Urine drug screen was negative, serum alcohol was 45, salicylates was less than 1, acetaminophen level was less than 10, COVID-19 PCR was negative. Patient did have a low-grade fever in the emergency department, she required supplemental oxygen she is currently on 4 L of oxygen. She was 86% on room air, she was quite tachypneic and short of breath, she was hypertensive, with a blood pressure of 219/105, and very confused. She was given Ativan for possible EtOH withdrawal syndrome, she was started on nebulized bronchodilators, and antibiotics in the form of Rocephin for possibility of aspiration pneumonia. She was also given a dose of Lasix for increased shortness of breath, pulmonary congestion, and she seems to have improved with those interventions. Her blood gas showed pO2 of 70, pCO2 of 65, and pH of 7.28 consistent with acute on chronic hypoxic and hypercapnic respiratory failure. Today's chest x-ray shows mild basilar pulmonary infiltrat es and atelectasis improving compared to yesterday's chest x-ray. However she still quite bronchospastic, very congested and short of breath. On 12/27/2020 patient is seen in follow-up on selective care unit. She is resting comfortably in bed, likely on 8 L of oxygen, she did wear BiPAP overnight. She does breathe more comfortably today, appears to be less congestive bronchospastic. She is more awake, and following commands, although remains confused. She does attend get very restless, impulsive and sometimes agitated. She remains on CIWA protocol. Today's labs have been reviewed. BMP was done only, sodium is improving and is up to 134 on today's labs, potassium is 3.9, chloride is 91, CO2 33, BUN of 19, creatinine 0.57, BNP was 557, troponin was negative at less than 0.012. He remains on Zosyn for possibility of aspiration pneumonia. She remains on breathing treatments. Her daughters are at the bedside, they state the patient used to follow with Dr. Gore in the pulmonary clinic however has not seen him in quite some time. They stated the patient is noncompliant, she still drinks and smokes quite extensively. Her home oxygen was taken back by the [facility], patient had not been wearing her hearing it lately. On 12/28/2020 patient seen in follow-up patient is seen in follow-up on selective care unit, she remains confused, she is a bit more lethargic on today' s exam, there is congested, she is on 8 L of oxygen pulse ox of 93%, she has a loose congested cough, she is at times able to bring up some tannish colored phlegm. She is afebrile, hemodynamically stable, no BiPAP support last night. Remains on antibiotics in the form of Zosyn, patient is on breathing treatments, remains on IV steroids. She continues on CIWA protocol, she is on Ativan on hold all on as-needed basis. Today's labs have been reviewed serum sodium is improving and is up to 134, potassium is 4.1, chloride is 94, CO2 is 36, B1 is 20, creatinine 0.41. The patient is seen today 12/29/2020 in follow-up on the selective care unit. She is currently awake. Slow to respond. Remains on 10 L high flow nasal cannula with O2 saturation of 94%. She's been afebrile. Somewhat hypertensive. Blood cultures reveal no growth. Urine culture reveals no growth. Blood glucose 138. She remains on CIWA protocol. Continued on DuoNeb inhalations, IV Solu-Medrol, Symbicort. NicoDerm patch in place. Remains on Zosyn. Patient seen today 12/30/2020 in follow-up on the selective care unit. She remains awake and alert in no acute distress. Still somewhat slow to respond. She is maintaining O2 saturations in the upper 90s on 8 L high flow nasal cannula. She's afebrile. Somewhat hypertensive. Her chest x-ray reveals some basilar atelectasis. Blood culture reveals no growth. Urine culture revealed no growth. White count 5.7. Hemoglobin 17.6. Sodium 139. Potassium 4.2. C reatinine 0.41. She remains on DuoNeb inhalations, Symbicort, IV Solu-Medrol. Antibiotics in the form of Zosyn. Heparin for DVT prophylaxis. NicoDerm patch in place. Objective - Vital Signs Vital signs: Vital Signs Temp 97.6 F 12/30/20 11:07 Pulse 78 12/30/20 11:17 Resp 18 12/30/20 11:07 BP 178/105 12/30/20 12:55 Pulse Ox 98 12/30/20 11:07 Intake & Output 12/29/20 12/30/20 12/30/20 18:59 06:59 18:59 Intake Total 60 Output Total 3 Balance 60 -3 Weight 45.5 kg Intake: Oral 60 Output: Urine 3 Other: Voiding Method Diaper Diaper Diaper # Voids 1 1 # Bowel Movements 1 - Exam GENERAL EXAM: A bit more awake today, confused, and oriented to self only, 65-year-old female, on 8 L of oxygen with a pulse ox of 98% HEAD: Normocephalic/atraumatic. EYES: Normal reaction of pupils, equal size. Conjunctiva pink, sclera white. NOSE: Clear with pink turbinates. THROAT: No erythema or exudates. NECK: No masses, no JVD, no thyroid enlargement, no adenopathy. CHEST: No chest wall deformity. Symmetrical expansion. LUNGS: Equal air entry with diffuse wheezes and rhonchi CVS: Regular rate and rhythm, normal S1 and S2, no gallops, no murmurs, no rubs ABDOMEN: Soft, nontender. No hepatosplenomegaly, normal bowel sounds, no guarding or rigidity. EXTREMITIES: No clubbing, no edema, no cyanosis, 2+ pulses and upper and lower extremities. MUSCULOSKELETAL: Muscle strength and tone normal. SPINE: No scoliosis or deformity SKIN: No rashes CENTRAL NERVOUS SYSTEM: More awake and alert today, confused and oriented -1. No focal deficits, tone is normal in all 4 extremities. - Labs CBC & Chem 7: 12/30/20 09:16 12/30/20 09:16 Labs: Abnormal Lab Results - Last 24 Hours (Table) 12/29/20 12/29/20 12/30/20 Range/Units 16:20 21:07 06:13 RBC (3.80-5.40) m/uL Hgb (11.4-16.0) gm/dL Hct (34.0-46.0) % Lymphocytes # (1.0-4.8) k/uL Chloride (98-107) mmol/L Carbon Dioxide (22-30) mmol/L BUN (7-17) mg/dL Creatinine (0.52-1.04) mg/dL Glucose (74-99) mg/dL POC Glucose (mg/dL) 135 H 137 H 124 H (75-99) mg/dL AST (14-36) U/L 12/30/20 12/30/20 12/30/20 Range/Units 09:16 09:16 11:39 RBC 5.61 H (3.80-5.40) m/uL Hgb 17.6 H (11.4-16.0) gm/dL Hct 55.9 H (34.0-46.0) % Lymphocytes # 0.4 L (1.0-4.8) k/uL Chloride 95 L (98-107) mmol/L Carbon Dioxide 38 H (22-30) mmol/L BUN 24 H (7-17) mg/dL Creatinine 0.41 L (0.52-1.04) mg/dL Glucose 185 H (74-99) mg/dL POC Glucose (mg/dL) 163 H (75-99) mg/dL AST 41 H (14-36) U/L Microbiology - Last 24 Hours (Table) 12/26/20 12:02 Blood Culture - Preliminary Blood No Growth after 72 hours Assessment and Plan Assessment: 1 Acute on chronic hypoxic and hypercapnic respiratory failure related to acute exacerbation of COPD and possibility of aspiration pneumonia 2 Altered mental status, brain CT showed no acute intracranial abnormality. This is likely related to acute metabolic encephalopathy related to acute on chronic hypercapnic and hypoxic respiratory failure, aspiration pneumonia, acute exacerbation of COPD, acute EtOH withdrawal and hyponatremia 3 Acute hyponatremia, possibly hypervolemia, improved with Lasix. Low Sodium is also likely related to chronic EtOH 4 Chronic EtOH 5 Acute EtOH withdrawal, on CIWA protocol 6 Advanced COPD on home oxygen, underlying baseline lung function is unknown 7 Medical noncompliance 8 2 pack a day smoker Plan: The patient was seen and evaluated by Dr. Colton Gonzalez, add Pulmicort and Perforomist Continue to titrate the FiO2 as tolerated Continue aspiration precautions Remains in the CIWA protocol We will continue to follow I, the cosigning physician, performed a history & physical examination of the patient. Lungs sounds bilateral end expiratory wheeze, diminished Maintaining good O2 saturations in the 90s on 8 L high flow nasal cannula. I discussed the assessment and plan of care with my nurse practitioner, Bell Stoner. I attest to the above note as dictated by her.
[2020-12-30 16:56] LABS: Glucose,Whole Blood 303 mg/dL (75-99)
[2020-12-30] MEDS ORDERED: INSULIN ASPART (NovoLOG) 100 UNIT/ML VIAL SQ ONE (17:27)
[2020-12-30 20:04] LABS: Glucose,Whole Blood 163 mg/dL (75-99)
[2020-12-30] MEDS: BUDESONIDE 1 MG/2 ML NEBU INHALATION SCH (20:42)
[2020-12-30] MEDS: FORMOTEROL FUMARATE 20 MCG/2 ML NEBU INHALATION SCH (20:42)
[2020-12-31] MEDS: PIPERACILLIN-TAZOBACTAM 3.375 GM in SODIUM CHLORIDE 0.9% 100 ML IVPB SCH ×4 (00:06→23:30)
[2020-12-31] MEDS: methylPREDNISolone SOD SUCCI 125 MG/2 ML VIAL IV SCH ×3 (00:07→12:26)
[2020-12-31 06:12] LABS: Glucose,Whole Blood 141 mg/dL (75-99)
[2020-12-31] MEDS: INSULIN ASPART (NovoLOG) 100 UNIT/ML VIAL SQ SCH ×4 (06:34→21:00)
[2020-12-31] MEDS: THIAMINE 100 MG TAB PO SCH ×2 (06:35→17:46)
[2020-12-31] MEDS: IPRATROPIUM-ALBUTEROL 3 ML NEB INHALATION SCH ×4 (07:55→19:50)
[2020-12-31] MEDS: FORMOTEROL FUMARATE 20 MCG/2 ML NEBU INHALATION SCH ×2 (07:55→19:50)
[2020-12-31] MEDS: BUDESONIDE 1 MG/2 ML NEBU INHALATION SCH ×2 (07:55→19:50)
[2020-12-31] MEDS: NICOTINE 21MG/24HR PATCH TRANSDERM SCH (08:50)
[2020-12-31] MEDS: amLODIPine 5 MG TAB PO SCH (08:50)
[2020-12-31] MEDS: HEPARIN SODIUM,PORCINE/PF 5,000 UNIT/0.5 ML SYRINGE SQ SCH ×2 (08:50→20:59)
[2020-12-31] MEDS: FAMOTIDINE 20 MG/2 ML VIAL IV SCH (08:50)
[2020-12-31] MEDS: LORazepam 2 MG/ML INJ IV PRN ×2 (08:51→15:58)
--- NOTE | 2020-12-31 10:51 | P.PN ---
Subjective Patient is seen in follow-up for hyponatremia. Sodium level 139 yesterday. Oral intake is fair. No active complaints. Vital signs are stable. General: The patient appeared well nourished and normally developed. HEENT: Head exam is unremarkable. Neck is without jugular venous distension. LUNGS: Breath sounds decreased. HEART: Rate and Rhythm are regular. ABDOMEN: Soft, no distention. EXTREMITITES: No edema. Objective - Vital Signs Vital signs: Vital Signs Temp 98.0 F 12/31/20 04:00 Pulse 100 12/31/20 08:14 Resp 18 12/31/20 04:00 BP 179/70 12/31/20 04:00 Pulse Ox 93 L 12/31/20 04:00 Intake & Output 12/30/20 12/31/20 12/31/20 18:59 06:59 18:59 Intake Total 600 100 Output Total 2 Balance 598 100 Weight 48 kg Intake: Oral 600 100 Output: Stool 2 Other: Voiding Method Diaper Diaper # Voids 1 1 # Bowel Movements 1 - Labs CBC & Chem 7: 12/30/20 09:16 12/30/20 09:16 Labs: Abnormal Lab Results - Last 24 Hours (Table) 12/30/20 12/30/20 12/30/20 Range/Units 09:16 11:39 16:54 RBC 5.61 H (3.80-5.40) m/uL Hgb 17.6 H (11.4-16.0) gm/dL Hct 55.9 H (34.0-46.0) % Lymphocytes # 0.4 L (1.0-4.8) k/uL POC Glucose (mg/dL) 163 H 303 H (75-99) mg/dL 12/30/20 12/31/20 Range/Units 20:03 06:11 RBC (3.80-5.40) m/uL Hgb (11.4-16.0) gm/dL Hct (34.0-46.0) % Lymphocytes # (1.0-4.8) k/uL POC Glucose (mg/dL) 163 H 141 H (75-99) mg/dL Microbiology - Last 24 Hours (Table) 12/26/20 12:02 Blood Culture - Preliminary Blood No Growth after 96 hours Assessment and Plan Plan: Assessment: 1. Hyponatremia from poor solute intake. Sodium level 139 yesterday. Urine sodium less than 10 and urine osmolality 236. TSH normal. 2. Alcohol abuse. On CIWA protocol. 3. History of COPD. Plan: Currently off all IV fluids. Encouraged oral intake. I will sign off. Please call with any questions or concerns.
[2020-12-31] MEDS: NYSTATIN 100,000 UNIT/ML SUSP 500,000 UNIT/5 ML CUP PO SCH ×4 (10:59→21:00)
[2020-12-31 11:38] LABS: Glucose,Whole Blood 123 mg/dL (75-99)
--- NOTE | 2020-12-31 12:45 | P.PN ---
Subjective This is a pleasant 65 y old female with past medical history of COPD/asthma: Abuse while she drinks beers daily and smoker about 2 packs per day. He brought by family for unsteady gait and weakness on 12/25. Today when I saw the patient she wishes in the hospital but she could not tell which hospital, she thought this 1973 and she thought the president is jayla also she thought she came to the hospital because she passed out, it looks very lethargic and confused and she does not follow commands with slow response. She is hypoxic on 8 L oxygen via nasal cannula saturating 92%. Patient had low- grade fever of 100 yesterday. Resolved Vitas looks stable Draw Off Worker following the case for hyponatremia and she is on D5W at 100 mL by skidder operator to slow the rate of correction, today her sodium went up from 130 up to 134, liver enzymes are mildly elevated. TSH is normal at 2.5. CBC from yesterday is unremarkable. BNP is 557. She kept on Zosyn and Solu-Medrol currently. She is on CIWA protocol, she is on Haldol and Ativan as needed. 12/29/2020 Patient today is a little bit more awake and interactive however she is more confused than yesterday to time and place and person, but she couldn't tell she was in the hospital but today she could not know. Denies any specific symptoms however she has right-sided abdominal tenderness which looks mild rebound tenderness, no guarding. Vitals are stable but she needs higher oxygen today at 10 L/m. She is afebrile. Sodium improved to 134. No labs from today On Zosyn, Solu-Medrol and CIWA protocol. She is off IV fluids. Discussed the case with social worker masters, she now has medial public guardian upon request of her family, patient lacks capacity to make medical decision currently per my evaluation 12/30/2020 Patient significantly more awake and alert today, she is oriented to place she goes in the hospital, she knows the year, she is partially oriented to person, she thought her daughter name is Shena when she told me her name is Jaimee when I talked to her. The daughter told me they agree with public guardian and the like her to go to skilled nursing for placement postdischarge. Her blood pressure was elevated today 216/104 due to steroid effect, Norvasc and hydralazine when necessary is added 1 we'll monitor blood pressure. On 8 L oxygen via nasal cannula. Liver enzymes almost normalized and her hemoglobin went up to 17.6. Sodium level normal today at 139. X-ray showing bilateral atelectasis and pulmonary hypertension This remains on some Medrol 60 mg and Zosyn. 12/31/2020 Patient still confused although she is [facility] told her daughter at bedside Estephania that this is 1970, her daughter corrected her it is 2020, and after 2 minutes when asked her troponin again this 1970. Also she is disoriented to person, she thought her daughter at bedside were negative is Estephania that she is her sister Traci Hutchison and told her that you looks like She remains on 8 L oxygen via nasal cannula with prolonged expiration. Ammonia level less than night. Blood pressure is better controlled at 179/79 after Norvasc was added. Increase Norvasc to 10 mg daily Patient remains on IV some Medrol, 60 mg, Zosyn, CIWA protocol I discussed the case with the daughter at bedside Estephania, she told me that the patient herself from the family and she lives with a boyfriend who is her roommate now, he is taking care of the Bill's but despite that patient cannot do shopping, there is cc and urine all over the place, she is not eating well, she is not showering are take care of her nails are usually she is a clean percent that's why she got a public guardian per family Objective - Vital Signs Vital signs: Vital Signs Temp 97.4 F L 12/31/20 12:00 Pulse 96 12/31/20 12:18 Resp 18 12/31/20 12:00 BP 170/79 12/31/20 12:00 Pulse Ox 91 L 12/31/20 12:00 Intake & Output 12/30/20 12/31/20 12/31/20 18:59 06:59 18:59 Intake Total 600 460 Output Total 2 Balance 598 460 Weight 48 kg Intake: Oral 600 460 Output: Stool 2 Other: Voiding Method Diaper Diaper Diaper # Voids 1 1 3 # Bowel Movements 1 1 - Exam -GENERAL: The patient is very confused and lethargic HEENT: Pupils are round and equally reacting to light. EOMI. No scleral icterus. No conjunctival pallor. Normocephalic, atraumatic. No pharyngeal erythema. No thyromegaly. CARDIOVASCULAR: S1 and S2 present. No murmurs, rubs, or gallops. -PULMONARY: Chest is clear to auscultation, cathetered wheezing and crepitation ABDOMEN: Soft, nontender, nondistended, normoactive bowel sounds. No palpable organomegaly. MUSCULOSKELETAL: No joint swelling or deformity. EXTREMITIES: No cyanosis, clubbing, or pedal edema. NEUROLOGICAL: Gross neurological examination did not reveal any focal deficits. SKIN: No rashes. no petechiae. - Labs CBC & Chem 7: 12/30/20 09:16 12/30/20 09:16 Labs: Abnormal Lab Results - Last 24 Hours (Table) 12/30/20 12/30/20 12/31/20 Range/Units 16:54 20:03 06:11 POC Glucose (mg/dL) 303 H 163 H 141 H (75-99) mg/dL 12/31/20 Range/Units 11:36 POC Glucose (mg/dL) 123 H (75-99) mg/dL Microbiology - Last 24 Hours (Table) 12/26/20 12:02 Blood Culture - Preliminary Blood No Growth after 96 hours Assessment and Plan Assessment: Acute COPD exacerbation Metabolic and toxic encephalopathy Possible aspiration pneumonia Alcohol abuse and withdrawal Hyponatremia Plan: This is a pleasant 65 years old female who presents with hypoxia, and AMS. Continue with steroids Solu-Medrol, continue with Zosyn. Draw Off Worker on the case for hyponatremia which is resolved Continue with CIWA protocol, continue with Haldol and Ativan as needed Patient has Public guardian, family wanted patient to go to skilled nursing for placement post discharge Continue with steroids and monitor oxygen level Labs and medication were reviewed.. Continue same treatment. Continue with symptomatic treatment. Resume home medication. Monitor lytes and vitals. DVT and GI prophylaxis. Further recommendationsas per clinical course of the patient DVT prophylaxis: Mechanical GI Prophylaxis: Pepcid Prognosis is guarded
--- NOTE | 2020-12-31 13:56 | P.PN ---
Subjective Progress Note Date: 12/31/20 Principal diagnosis: Acute exacerbation of COPD, aspiration pneumonia This is a 65-year-old white female patient with past medical history of daily EtOH abuse, 2 pack a day smoker, COPD on home oxygen, who came into the emergency department on 12/25/2020 for evaluation of altered mental status area patient was accompanied by her daughter and her brother. Family reported that the patient had a significant history of alcohol abuse and her last drink was that the prior to the ER admission. She seemed very confused, and the confusion continued the next day and patient continued to have an abnormal gait. She was noted to be very short of breath. She does have a history of COPD however does not use any inhalers or nebulizer treatments. Denies history of sick contacts. The daughter stated that patient has been noncompliant with her medications. She denied any reports of chest pain. No fever or chills. No prior history of heart failure. No nausea vomiting or diarrhea, patient has had significant withdrawal from alcohol. Brain CT showed mild atrophy and chronic small vessel ischemia, no acute intracranial abnormality. Chest x-ray showed mild interstitial basilar pulmonary infiltrates. Labs revealed CBC within normal limits, coagulation profile was within normal limits, serum sodium was 116, potassium is 4.3, chloride is 79, CO2 was 25, BUN was 7, creatinine 0.77, serum osmolality was low at 254, AST was 70, ALT was 52, alkaline phosphatase was 76, ammonia level was 20, CK was 248, troponin was less than 0.012, proBNP was 557, urinalysis showed cloudy urine with 1+ protein, moderate blood, large amount of leuks, there were 13 of white cells, and moderate bacteria. Urine osmolality was 236, urine random sodium was less than 10. Urine drug screen was negative, serum alcohol was 45, salicylates was less than 1, acetaminophen level was less than 10, COVID-19 PCR was negative. Patient did have a low-grade fever in the emergency department, she required supplemental oxygen she is currently on 4 L of oxygen. She was 86% on room air, she was quite tachypneic and short of breath, she was hypertensive, with a blood pressure of 219/105, and very confused. She was given Ativan for possible EtOH withdrawal syndrome, she was started on nebulized bronchodilators, and antibiotics in the form of Rocephin for possibility of aspiration pneumonia. She was also given a dose of Lasix for increased shortness of breath, pulmonary congestion, and she seems to have improved with those interventions. Her blood gas showed pO2 of 70, pCO2 of 65, and pH of 7.28 consistent with acute on chronic hypoxic and hypercapnic respiratory failure. Today's chest x-ray shows mild basilar pulmonary infiltrates and atelectasis improving compared to yesterday's chest x-ray. However she still quite bronchospastic, very congested and short of breath. On 12/27/2020 patient is seen in follow-up on selective care unit. She is resting comfortably in bed, likely on 8 L of oxygen, she did wear BiPAP overnight. She does breathe more comfortably today, appears to be less congestive bronchospastic. She is more awake, and following commands, although remains confused. She does attend get very restless, impulsive and sometimes agitated. She remains on CIWA protocol. Today's labs have been reviewed. BMP was done only, sodium is improving and is up to 134 on today's labs, potassium is 3.9, chloride is 91, CO2 33, BUN of 19, creatinine 0.57, BNP was 557, t roponin was negative at less than 0.012. He remains on Zosyn for possibility of aspiration pneumonia. She remains on breathing treatments. Her daughters are at the bedside, they state the patient used to follow with Dr. Gore in the pulmonary clinic however has not seen him in quite some time. They stated the patient is noncompliant, she still drinks and smokes quite extensively. Her home oxygen was taken back by the [facility], patient had not been wearing her hearing it lately. On 12/28/2020 patient seen in follow-up patient is seen in follow-up on selective care unit, she remains confused, she is a bit more lethargic on today's exam, there is congested, she is on 8 L of oxygen pulse ox of 93%, she has a loose congested cough, she is at times able to bring up some tannish colored phlegm. She is afebrile, hemodynamically stable, no BiPAP support last night. Remains on antibiotics in the form of Zosyn, patient is on breathing treatments, remains on IV steroids. She continues on CIWA protocol, she is on Ativan on hold all on as-needed basis. Today's labs have been reviewed serum sodium is improving and is up to 134, potassium is 4.1, chloride is 94, CO2 is 36, B1 is 20, creatinine 0.41. On 12/31/2020 patient seen in follow-up on selective care unit. She is resting comfortably in bed, she is currently on 8 L of oxygen, no worsening dyspnea, appears to be breathing comfortably, no signs of any respiratory distress or use of accessory muscles of breathing. She still confused, however not agitated. She is only oriented to herself, disoriented to place and time. Norvasc was added for elevated blood pressure, patient remains on CIWA protocol, she remains on IV steroids and antibiotics in the form of Zosyn for possibility of aspiration pneumonia, she is less short of breath and less bronchospastic on today's exam. Blood and urine cultures have been negative. Objective - Vital Signs Vital signs: Vital Signs Temp 97.4 F L 12/31/20 12:00 Pulse 96 12/31/20 12:18 Resp 18 12/31/20 12:00 BP 170/79 12/31/20 12:00 Pulse Ox 91 L 12/31/20 12:00 Intake & Output 12/30/20 12/31/20 12/31/20 18:59 06:59 18:59 Intake Total 600 460 Output Total 2 Balance 598 460 Weight 48 kg Intake: Oral 600 460 Output: Stool 2 Other: Voiding Method Diaper Diaper Diaper # Voids 1 1 3 # Bowel Movements 1 1 - Exam GENERAL EXAM: A bit more lethargic, confused and oriented to self only on today's exam 65-year-old white female, on 8 L of oxygen with a pulse ox of 91%, congestive cough, diffuse rhonchi and wheezing HEAD: Normocephalic/atraumatic. EYES: Normal reaction of pupils, equal size. Conjunctiva pink, sclera white. NOSE: Clear with pink turbinates. THROAT: No erythema or exudates. NECK: No masses, no JVD, no thyroid enlargement, no adenopathy. CHEST: No chest wall deformity. Symmetrical expansion. LUNGS: Equal air entry with diffuse wheezes and rhonchi CVS: Regular rate and rhythm, normal S1 and S2, no gallops, no murmurs, no rubs ABDOMEN: Soft, nontender. No hepatosplenomegaly, normal bowel sounds, no guarding or rigidity. EXTREMITIES: No clubbing, no edema, no cyanosis, 2+ pulses and upper and lower extremities. MUSCULOSKELETAL: Muscle strength and tone normal. SPINE: No scoliosis or deformity SKIN: No rashes CENTRAL NERVOUS SYSTEM: Lethargic, confused and oriented -1. No focal deficits, tone is normal in all 4 extremities. - Labs CBC & Chem 7: 12/30/20 09:16 12/30/20 09:16 Labs: Abnormal Lab Results - Last 24 Hours (Table) 12/30/20 12/30/20 12/31/20 Range/Units 16:54 20:03 06:11 POC Glucose (mg/dL) 303 H 163 H 141 H (75-99) mg/dL 12/31/20 Range/Units 11:36 POC Glucose (mg/dL) 123 H (75-99) mg/dL Microbiology - Last 24 Hours (Table) 12/26/20 12:02 Blood Culture - Preliminary Blood No Growth after 96 hours Assessment and Plan Plan: Assessment: #1. Acute on chronic hypoxic and hypercapnic respiratory failure related to acute exacerbation of COPD and possibility of aspiration pneumonia #2. Altered mental status, brain CT showed no acute intracranial abnormality. This is likely related to acute metabolic encephalopathy related to acute on chronic hypercapnic and hypoxic respiratory failure, aspiration pneumonia, acute exacerbation of COPD, acute EtOH withdrawal and hyponatremia #3. Acute hyponatremia, possibly hypervolemia, improved with Lasix. Low Sodium is also likely related to chronic EtOH. Resolved #4. Chronic EtOH #5. Acute EtOH withdrawal, on CIWA protocol #6. Advanced COPD on home oxygen, underlying baseline lung function is unknown #7. Medical noncompliance #8. 2 pack a day smoker Plan: Continue current antibiotics Vitals stable, patient is afebrile, she is breathing easier Follow-up chest x-ray in the morning Follow-up pro-calcitonin Continue with steroids, continue breathing treatments Continues to protocol Maintain aspiration precautions Follow-up labs in the morning I performed a history & physical examination of the patient and discussed their management with my nurse practitioner, Zuleyma Preston. I reviewed the nurse practitioner's note and agree with the documented findings and plan of care. Lung sounds are positive for diminished breath sounds. The findings and the impression was discussed with the patient. I attest to the documentation by the nurse practitioner. Time with Patient: Less than 30
[2020-12-31 14:46] VITALS: BMI 22.8
[2020-12-31 16:51] LABS: Glucose,Whole Blood 145 mg/dL (75-99)
[2020-12-31 20:09] LABS: Glucose,Whole Blood 211 mg/dL (75-99)
[2020-12-31] MEDS: FAMOTIDINE 20 MG TAB PO SCH (20:59)
[2020-12-31] MEDS: methylPREDNISolone SOD SUCCI 40 MG/ML 1 ML VIAL IV SCH (20:59)
[2020-12-31] MEDS: hydrALAZINE HCL 25 MG TAB PO PRN (23:21)
[2021-01-01] MEDS: methylPREDNISolone SOD SUCCI 40 MG/ML 1 ML VIAL IV SCH (04:18)
[2021-01-01 06:17] LABS: Glucose,Whole Blood 114 mg/dL (75-99)
[2021-01-01] MEDS: INSULIN ASPART (NovoLOG) 100 UNIT/ML VIAL SQ SCH ×4 (06:58→20:51)
[2021-01-01] MEDS: THIAMINE 100 MG TAB PO SCH ×2 (07:20→18:17)
[2021-01-01] MEDS: IPRATROPIUM-ALBUTEROL 3 ML NEB INHALATION SCH ×4 (08:14→19:00)
[2021-01-01] MEDS: FORMOTEROL FUMARATE 20 MCG/2 ML NEBU INHALATION SCH ×2 (08:14→19:00)
[2021-01-01] MEDS: BUDESONIDE 1 MG/2 ML NEBU INHALATION SCH ×2 (08:14→19:00)
[2021-01-01] MEDS: PIPERACILLIN-TAZOBACTAM 3.375 GM in SODIUM CHLORIDE 0.9% 100 ML IVPB SCH (08:44)
[2021-01-01] MEDS: amLODIPine 10 MG TAB PO SCH (08:44)
[2021-01-01] MEDS: NICOTINE 21MG/24HR PATCH TRANSDERM SCH (08:44)
[2021-01-01] MEDS: hydrALAZINE HCL 25 MG TAB PO PRN (08:44)
[2021-01-01] MEDS: FAMOTIDINE 20 MG TAB PO SCH ×2 (08:44→20:55)
[2021-01-01] MEDS: LORazepam 2 MG/ML INJ IV PRN (08:45)
[2021-01-01] MEDS: HEPARIN SODIUM,PORCINE/PF 5,000 UNIT/0.5 ML SYRINGE SQ SCH ×2 (08:45→20:55)
[2021-01-01] MEDS: NYSTATIN 100,000 UNIT/ML SUSP 500,000 UNIT/5 ML CUP PO SCH ×4 (08:45→20:55)
[2021-01-01 12:03] LABS: Glucose,Whole Blood 113 mg/dL (75-99)
--- NOTE | 2021-01-01 12:45 | P.PN ---
Subjective Progress Note Date: 01/01/21 Principal diagnosis: Acute exacerbation of COPD, aspiration pneumonia This is a 65-year-old white female patient with past medical history of daily EtOH abuse, 2 pack a day smoker, COPD on home oxygen, who came into the emergency department on 12/25/2020 for evaluation of altered mental status area patient was accompanied by her daughter and her brother. Family reported that the patient had a significant history of alcohol abuse and her last drink was that the prior to the ER admission. She seemed very confused, and the confusion continued the next day and patient continued to have an abnormal gait. She was noted to be very short of breath. She does have a history of COPD however does not use any inhalers or nebulizer treatments. Denies history of sick contacts. The daughter stated that patient has been noncompliant with her medications. She denied any reports of chest pain. No fever or chills. No prior history of heart failure. No nausea vomiting or diarrhea, patient has had significant withdrawal from alcohol. Brain CT showed mild atrophy and chronic small vessel ischemia, no acute intracranial abnormality. Chest x-ray showed mild interstitial basilar pulmonary infiltrates. Labs revealed CBC within normal limits, coagulation profile was within normal limits, serum sodium was 116, potassium is 4.3, chloride is 79, CO2 was 25, BUN was 7, creatinine 0.77, serum osmolality was low at 254, AST was 70, ALT was 52, alkaline phosphatase was 76, ammonia level was 20, CK was 248, troponin was less than 0.012, proBNP was 557, urinalysis showed cloudy urine with 1+ protein, moderate blood, large amount of leuks, there were 13 of white cells, and moderate bacteria. Urine osmolality was 236, urine random sodium was less than 10. Urine drug screen was negative, serum alcohol was 45, salicylates was less than 1, acetaminophen level was less than 10, COVID-19 PCR was negative. Patient did have a low-grade fever in the emergency department, she required supplemental oxygen she is currently on 4 L of oxygen. She was 86% on room air, she was quite tachypneic and short of breath, she was hypertensive, with a blood pressure of 219/105, and very confused. She was given Ativan for possible EtOH withdrawal syndrome, she was started on nebulized bronchodilators, and antibiotics in the form of Rocephin for possibility of aspiration pneumonia. She was also given a dose of Lasix for increased shortness of breath, pulmonary congestion, and she seems to have improved with those interventions. Her blood gas showed pO2 of 70, pCO2 of 65, and pH of 7.28 consistent with acute on chronic hypoxic and hypercapnic respiratory failure. Today's chest x-ray shows mild basilar pulmonary infiltrates and atelectasis improving compared to yesterday's chest x-ray. However she still quite bronchospastic, very congested and short of breath. On 12/27/2020 patient is seen in follow-up on selective care unit. She is resting comfortably in bed, likely on 8 L of oxygen, she did wear BiPAP overnight. She does breathe more comfortably today, appears to be less congestive bronchospastic. She is more awake, and following commands, although remains confused. She does attend get very restless, impulsive and sometimes agitated. She remains on CIWA protocol. Today's labs have been reviewed. BMP was done only, sodium is improving and is up to 134 on today's labs, potassium is 3.9, chloride is 91, CO2 33, BUN of 19, creatinine 0.57, BNP was 557, t roponin was negative at less than 0.012. He remains on Zosyn for possibility of aspiration pneumonia. She remains on breathing treatments. Her daughters are at the bedside, they state the patient used to follow with Dr. Gore in the pulmonary clinic however has not seen him in quite some time. They stated the patient is noncompliant, she still drinks and smokes quite extensively. Her home oxygen was taken back by the [facility], patient had not been wearing her hearing it lately. On 12/28/2020 patient seen in follow-up patient is seen in follow-up on selective care unit, she remains confused, she is a bit more lethargic on today's exam, there is congested, she is on 8 L of oxygen pulse ox of 93%, she has a loose congested cough, she is at times able to bring up some tannish colored phlegm. She is afebrile, hemodynamically stable, no BiPAP support last night. Remains on antibiotics in the form of Zosyn, patient is on breathing treatments, remains on IV steroids. She continues on CIWA protocol, she is on Ativan on hold all on as-needed basis. Today's labs have been reviewed serum sodium is improving and is up to 134, potassium is 4.1, chloride is 94, CO2 is 36, B1 is 20, creatinine 0.41. On 12/31/2020 patient seen in follow-up on selective care unit. She is resting comfortably in bed, she is currently on 8 L of oxygen, no worsening dyspnea, appears to be breathing comfortably, no signs of any respiratory distress or use of accessory muscles of breathing. She still confused, however not agitated. She is only oriented to herself, disoriented to place and time. Norvasc was added for elevated blood pressure, patient remains on CIWA protocol, she remains on IV steroids and antibiotics in the form of Zosyn for possibility of aspiration pneumonia, she is less short of breath and less bronchospastic on today's exam. Blood and urine cultures have been negative. On 01/01/2021 patient seen in follow-up on selective care unit, she currently remains on 8 L of oxygen, and her O2 saturations have been around 95-96%, she is awake and alert, although confused, but not agitated, breathing is nonlabored, no wheezing, no cough. She has been afebrile, remains on Zosyn, her last chest x-ray was on 12/30/2020 showing basilar atelectasis. No new labs. No acute e vents overnight. She received 1 dose of Ativan this morning for a CIWA scale of 6, she seems to be calm, no diaphoresis, no complaints of headaches, no tremors. No dyspnea, no wheezing no use of accessory muscles of breathing. Her microbiology results have been reviewed and remain negative. Objective - Vital Signs Vital signs: Vital Signs Temp 98.7 F 01/01/21 08:00 Pulse 70 01/01/21 11:39 Resp 18 01/01/21 08:00 BP 189/110 01/01/21 08:00 Pulse Ox 95 01/01/21 08:13 Intake & Output 12/31/20 01/01/21 01/01/21 18:59 06:59 18:59 Intake Total 760 0 Output Total 1 Balance 759 0 Weight 48 kg 47 kg Intake: Oral 760 0 Output: Stool 1 Other: Voiding Method Diaper Diaper Diaper # Voids 1 1 # Bowel Movements 1 1 - Exam GENERAL EXAM: Oriented to self only on today's exam 65-year-old white female, on 8 L of oxygen with a pulse ox of 96%, much more awake, confused but calm, breathing comfortably HEAD: Normocephalic/atraumatic. EYES: Normal reaction of pupils, equal size. Conjunctiva pink, sclera white. NOSE: Clear with pink turbinates. THROAT: No erythema or exudates. NECK: No masses, no JVD, no thyroid enlargement, no adenopathy. CHEST: No chest wall deformity. Symmetrical expansion. LUNGS: Equal air entry with minimal rhonchi CVS: Regular rate and rhythm, normal S1 and S2, no gallops, no murmurs, no rubs ABDOMEN: Soft, nontender. No hepatosplenomegaly, normal bowel sounds, no guarding or rigidity. EXTREMITIES: No clubbing, no edema, no cyanosis, 2+ pulses and upper and lower extremities. MUSCULOSKELETAL: Muscle strength and tone normal. SPINE: No scoliosis or deformity SKIN: No rashes CENTRAL NERVOUS SYSTEM: Awake and oriented -1. No focal deficits, tone is normal in all 4 extremities. - Labs CBC & Chem 7: 12/30/20 09:16 12/30/20 09:16 Labs: Abnormal Lab Results - Last 24 Hours (Table) 12/31/20 12/31/20 01/01/21 Range/Units 16:50 20:08 06:12 POC Glucose (mg/dL) 145 H 211 H 114 H (75-99) mg/dL 01/01/21 Range/Units 11:43 POC Glucose (mg/dL) 113 H (75-99) mg/dL Microbiology - Last 24 Hours (Table) 12/26/20 12:02 Blood Culture - Preliminary Blood No Growth after 120 hours Assessment and Plan Plan: Assessment: #1. Acute on chronic hypoxic and hypercapnic respiratory failure related to acute exacerbation of COPD and possibility of aspiration pneumonia #2. Altered mental status, brain CT showed no acute intracranial abnormality. This is likely related to acute metabolic encephalopathy related to acute on chronic hypercapnic and hypoxic respiratory failure, aspiration pneumonia, acute exacerbation of COPD, acute EtOH withdrawal and hyponatremia #3. Acute hyponatremia, possibly hypervolemia, improved with Lasix. Low Sodium is also likely related to chronic EtOH. Resolved #4. Chronic EtOH #5. Acute EtOH withdrawal, on CIWA protocol, improving, #6. Advanced COPD on home oxygen, underlying baseline lung function is unknown #7. Medical noncompliance #8. 2 pack a day smoker Plan: Continue breathing treatments We'll switch IV antibiotics to oral Augmentin Switch IV steroids to oral prednisone FiO2 is down to 4 L, continue to wean FiO2 to keep O2 saturation is between 85-8 8% Patient is much more awake and alert, remains confused She seems to be still receiving Ativan even though her CIWA scale is low anywhere from 3-6 Discontinue Ativan Continue monitoring Continue Haldol We'll continue to follow Placement may be needed in the ECF Discussed the case with discharge planning I performed a history & physical examination of the patient and discussed their management with my nurse practitioner, Zuleyma Preston. I reviewed the nurse practitioner's note and agree with the documented findings and plan of care. Lung sounds are positive for diminished breath sounds. The findings and the impression was discussed with the patient. I attest to the documentation by the nurse practitioner. Time with Patient: Less than 30
--- NOTE | 2021-01-01 13:32 | P.PN ---
Subjective This is a pleasant 65 y old female with past medical history of COPD/asthma: Abuse while she drinks beers daily and smoker about 2 packs per day. He brought by family for unsteady gait and weakness on 12/25. Today when I saw the patient she wishes in the hospital but she could not tell which hospital, she thought this 1973 and she thought the president is jayla also she thought she came to the hospital because she passed out, it looks very lethargic and confused and she does not follow commands with slow response. She is hypoxic on 8 L oxygen via nasal cannula saturating 92%. Patient had low- grade fever of 100 yesterday. Resolved Vitas looks stable Autocad Detailer following the case for hyponatremia and she is on D5W at 100 mL by it architecture consultant to slow the rate of correction, today her sodium went up from 130 up to 134, liver enzymes are mildly elevated. TSH is normal at 2.5. CBC from yesterday is unremarkable. BNP is 557. She kept on Zosyn and Solu-Medrol currently. She is on CIWA protocol, she is on Haldol and Ativan as needed. 12/29/2020 Patient today is a little bit more awake and interactive however she is more confused than yesterday to time and place and person, but she couldn't tell she was in the hospital but today she could not know. Denies any specific symptoms however she has right-sided abdominal tenderness which looks mild rebound tenderness, no guarding. Vitals are stable but she needs higher oxygen today at 10 L/m. She is afebrile. Sodium improved to 134. No labs from today On Zosyn, Solu-Medrol and CIWA protocol. She is off IV fluids. Discussed the case with rn social services, she now has medial public guardian upon request of her family, patient lacks capacity to make medical decision currently per my evaluation 12/30/2020 Patient significantly more awake and alert today, she is oriented to place she goes in the hospital, she knows the year, she is partially oriented to person, she thought her daughter name is Shena when she told me her name is Jaimee when I talked to her. The daughter told me they agree with public guardian and the like her to go to shelter for placement postdischarge. Her blood pressure was elevated today 216/104 due to steroid effect, Norvasc and hydralazine when necessary is added 1 we'll monitor blood pressure. On 8 L oxygen via nasal cannula. Liver enzymes almost normalized and her hemoglobin went up to 17.6. Sodium level normal today at 139. X-ray showing bilateral atelectasis and pulmonary hypertension This remains on some Medrol 60 mg and Zosyn. 12/31/2020 Patient still confused although she is knows that she is at [facility] she told her daughter at bedside Estephania that this is 1970, her daughter corrected her it is 2020, and after 2 minutes when asked her troponin again this 1970. Also she is disoriented to person, she thought her daughter at bedside were negative is Estephania that she is her sister Traci Hutchison and told her that you looks like She remains on 8 L oxygen via nasal cannula with prolonged expiration. Ammonia level less than night. Blood pressure is better controlled at 179/79 after Norvasc was added. Increase Norvasc to 10 mg daily Patient remains on IV some Medrol, 60 mg, Zosyn, CIWA protocol I discussed the case with the daughter at bedside Estephania, she told me that the patient herself from the family and she lives with a boyfriend who is her roommate now, he is taking care of the Bill's but despite that patient cannot do shopping, there is cc and urine all over the place, she is not eating well, she is not showering are take care of her nails are usually she is a clean percent that's why she got a public guardian per family 01/01/2021 Patient is awake but confused, she still on 8 L oxygen via nasal cannula saturating 8%. Blood pressure is 189/110. She's placed on Norvasc 10 mg daily as well as increasing her steroid input. Patient looks clinically more stable Pulmonary service on the case and they made some recommendations, change antibiotics to Augmentin and steroids to prednisone 40 mg. Discontinue Ativan as it may be contributing to confusion. Patient will benefit from an ECF upon discharge for placement Objective - Vital Signs Vital signs: Vital Signs Temp 98.7 F 01/01/21 08:00 Pulse 70 01/01/21 11:39 Resp 18 01/01/21 08:00 BP 189/110 01/01/21 08:00 Pulse Ox 95 01/01/21 08:13 Intake & Output 12/31/20 01/01/21 01/01/21 18:59 06:59 18:59 Intake Total 760 0 Output Total 1 Balance 759 0 Weight 48 kg 47 kg Intake: Oral 760 0 Output: Stool 1 Other: Voiding Method Diaper Diaper Diaper # Voids 1 1 # Bowel Movements 1 1 - Exam -GENERAL: The patient is very confused and lethargic HEENT: Pupils are round and equally reacting to light. EOMI. No scleral icterus. No conjunctival pallor. Normocephalic, atraumatic. No pharyngeal erythema. No thyromegaly. CARDIOVASCULAR: S1 and S2 present. No murmurs, rubs, or gallops. -PULMONARY: Chest is clear to auscultation, cathetered wheezing and crepitation ABDOMEN: Soft, nontender, nondistended, normoactive bowel sounds. No palpable organomegaly. MUSCULOSKELETAL: No joint swelling or deformity. EXTREMITIES: No cyanosis, clubbing, or pedal edema. NEUROLOGICAL: Gross neurological examination did not reveal any focal deficits. SKIN: No rashes. no petechiae. - Labs CBC & Chem 7: 12/30/20 09:16 12/30/20 09:16 Labs: Abnormal Lab Results - Last 24 Hours (Table) 12/31/20 12/31/20 01/01/21 Range/Units 16:50 20:08 06:12 POC Glucose (mg/dL) 145 H 211 H 114 H (75-99) mg/dL 01/01/21 Range/Units 11:43 POC Glucose (mg/dL) 113 H (75-99) mg/dL Microbiology - Last 24 Hours (Table) 12/26/20 12:02 Blood Culture - Preliminary Blood No Growth after 120 hours Assessment and Plan Assessment: Acute COPD exacerbation, improved Metabolic and toxic encephalopathy Possible aspiration pneumonia Alcohol abuse and withdrawal Hyponatremia possible alcohol-related dementia versus Alzheimer dementia, needed a guardian Plan: This is a pleasant 65 years old female who presents with hypoxia, and AMS. Continue with steroids prednisone, continue with Augmentin Autocad Detailer on the case for hyponatremia which is resolved Discontinue Ativan, continue with vitamins Patient has Public guardian, family wanted patient to go to shelter for placement post discharge Continue with steroids and monitor oxygen level We'll need ECF for placement on discussed with the family and they agree with this plan Labs and medication were reviewed.. Continue same treatment. Continue with symptomatic treatment. Resume home medication. Monitor lytes and vitals. DVT and GI prophylaxis. Further recommendationsas per clinical course of the patient DVT prophylaxis: Mechanical GI Prophylaxis: Pepcid Prognosis is guarded
[2021-01-01 16:58] LABS: Glucose,Whole Blood 175 mg/dL (75-99)
[2021-01-01 19:56] LABS: Glucose,Whole Blood 122 mg/dL (75-99)
[2021-01-01] MEDS: AMOXIC-POT CLAV 875-125MG 1 EACH TAB PO SCH (20:55)
[2021-01-02 06:13] LABS: Glucose,Whole Blood 77 mg/dL (75-99)
[2021-01-02] MEDS: INSULIN ASPART (NovoLOG) 100 UNIT/ML VIAL SQ SCH ×4 (06:38→20:52)
[2021-01-02] MEDS: THIAMINE 100 MG TAB PO SCH ×2 (06:40→17:26)
[2021-01-02] MEDS: FORMOTEROL FUMARATE 20 MCG/2 ML NEBU INHALATION SCH ×2 (08:44→19:47)
[2021-01-02] MEDS: IPRATROPIUM-ALBUTEROL 3 ML NEB INHALATION SCH ×4 (08:44→19:47)
[2021-01-02] MEDS: BUDESONIDE 1 MG/2 ML NEBU INHALATION SCH ×2 (08:44→19:47)
[2021-01-02] MEDS: NYSTATIN 100,000 UNIT/ML SUSP 500,000 UNIT/5 ML CUP PO SCH ×4 (08:58→22:12)
[2021-01-02] MEDS: FAMOTIDINE 20 MG TAB PO SCH ×2 (08:58→20:56)
[2021-01-02] MEDS: HEPARIN SODIUM,PORCINE/PF 5,000 UNIT/0.5 ML SYRINGE SQ SCH ×2 (08:58→20:56)
[2021-01-02] MEDS: amLODIPine 10 MG TAB PO SCH (08:59)
[2021-01-02] MEDS: NICOTINE 21MG/24HR PATCH TRANSDERM SCH (08:59)
[2021-01-02] MEDS: predniSONE 20 MG TAB PO SCH (08:59)
[2021-01-02] MEDS: AMOXIC-POT CLAV 875-125MG 1 EACH TAB PO SCH ×2 (08:59→20:56)
--- NOTE | 2021-01-02 11:07 | P.PN ---
Subjective This is a pleasant 65 y old female with past medical history of COPD/asthma: Abuse while she drinks beers daily and smoker about 2 packs per day. He brought by family for unsteady gait and weakness on 12/25. Today when I saw the patient she wishes in the hospital but she could not tell which hospital, she thought this 1973 and she thought the president is jayla also she thought she came to the hospital because she passed out, it looks very lethargic and confused and she does not follow commands with slow response. She is hypoxic on 8 L oxygen via nasal cannula saturating 92%. Patient had low- grade fever of 100 yesterday. Resolved Vitas looks stable Director Pharmacy Services following the case for hyponatremia and she is on D5W at 100 mL by sausage cooker to slow the rate of correction, today her sodium went up from 130 up to 134, liver enzymes are mildly elevated. TSH is normal at 2.5. CBC from yesterday is unremarkable. BNP is 557. She kept on Zosyn and Solu-Medrol currently. She is on CIWA protocol, she is on Haldol and Ativan as needed. 12/29/2020 Patient today is a little bit more awake and interactive however she is more confused than yesterday to time and place and person, but she couldn't tell she was in the hospital but today she could not know. Denies any specific symptoms however she has right-sided abdominal tenderness which looks mild rebound tenderness, no guarding. Vitals are stable but she needs higher oxygen today at 10 L/m. She is afebrile. Sodium improved to 134. No labs from today On Zosyn, Solu-Medrol and CIWA protocol. She is off IV fluids. Discussed the case with criminal justice social worker, she now has medial public guardian upon request of her family, patient lacks capacity to make medical decision currently per my evaluation 12/30/2020 Patient significantly more awake and alert today, she is oriented to place she goes in the hospital, she knows the year, she is partially oriented to person, she thought her daughter name is Shena when she told me her name is Jaimee when I talked to her. The daughter told me they agree with public guardian and the like her to go to senior living for placement postdischarge. Her blood pressure was elevated today 216/104 due to steroid effect, Norvasc and hydralazine when necessary is added 1 we'll monitor blood pressure. On 8 L oxygen via nasal cannula. Liver enzymes almost normalized and her hemoglobin went up to 17.6. Sodium level normal today at 139. X-ray showing bilateral atelectasis and pulmonary hypertension This remains on some Medrol 60 mg and Zosyn. 12/31/2020 Patient still confused although she is knows that she is at [facility] she told her daughter at bedside Estephania that this is 1970, her daughter corrected her it is 2020, and after 2 minutes when asked her troponin again this 1970. Also she is disoriented to person, she thought her daughter at bedside were negative is Estephania that she is her sister Traci Hutchison and told her that you looks like She remains on 8 L oxygen via nasal cannula with prolonged expiration. Ammonia level less than night. Blood pressure is better controlled at 179/79 after Norvasc was added. Increase Norvasc to 10 mg daily Patient remains on IV some Medrol, 60 mg, Zosyn, CIWA protocol I discussed the case with the daughter at bedside Estephania, she told me that the patient herself from the family and she lives with a boyfriend who is her roommate now, he is taking care of the Bill's but despite that patient cannot do shopping, there is cc and urine all over the place, she is not eating well, she is not showering are take care of her nails are usually she is a clean percent that's why she got a public guardian per family 01/01/2021 Patient is awake but confused, she still on 8 L oxygen via nasal cannula saturating 8%. Blood pressure is 189/110. She's placed on Norvasc 10 mg daily as well as increasing her steroid input. Patient looks clinically more stable Pulmonary service on the case and they made some recommendations, change antibiotics to Augmentin and steroids to prednisone 40 mg. Discontinue Ativan as it may be contributing to confusion. Patient will benefit from an ECF upon discharge for placement 01/02/2021 Patient is a pleasant 65 years old female presents with liver disease and altered mental status which is not acute, patient is to take care of herself at home and currently she has a public guardian p[er family request for looking for placement upon discharge She was hypoxic on admission secondary to COPD, responded to some Medrol and her oxygen is improved 8 down to a 3 L/m today. There was also some evidence of pneumonia which is also improvement and currently she is on Augmentin. Ativan discontinued Hemodynamically she is stable. Chest contaminant on Augmentin, prednisone 40 mg discontinue Ativan discontinue IV. Possibly going to ECF for placement tomorrow if she continued to be stable and improved and Objective - Vital Signs Vital signs: Vital Signs Temp 98.1 F 01/02/21 08:00 Pulse 68 01/02/21 09:14 Resp 18 01/02/21 08:00 BP 118/69 01/02/21 08:00 Pulse Ox 88 L 01/02/21 08:00 Intake & Output 01/01/21 01/02/21 01/02/21 18:59 06:59 18:59 Intake Total 350 240 Output Total 151 1 Balance 199 239 Weight 47 kg Intake: Oral 350 240 Output: Urine 150 Stool 1 1 Other: Voiding Method Diaper Diaper Diaper # Voids 3 1 1 - Exam -GENERAL: The patient is very confused and lethargic HEENT: Pupils are round and equally reacting to light. EOMI. No scleral icterus. No conjunctival pallor. Normocephalic, atraumatic. No pharyngeal erythema. No thyromegaly. CARDIOVASCULAR: S1 and S2 present. No murmurs, rubs, or gallops. -PULMONARY: Chest is clear to auscultation, cathetered wheezing and crepitation ABDOMEN: Soft, nontender, nondistended, normoactive bowel sounds. No palpable organomegaly. MUSCULOSKELETAL: No joint swelling or deformity. EXTREMITIES: No cyanosis, clubbing, or pedal edema. NEUROLOGICAL: Gross neurological examination did not reveal any focal deficits. SKIN: No rashes. no petechiae. - Labs CBC & Chem 7: 12/30/20 09:16 12/30/20 09:16 Labs: Abnormal Lab Results - Last 24 Hours (Table) 01/01/21 01/01/21 01/01/21 Range/Units 11:43 16:34 19:47 POC Glucose (mg/dL) 113 H 175 H 122 H (75-99) mg/dL Microbiology - Last 24 Hours (Table) 12/26/20 12:02 Blood Culture - Final Blood No Growth after 144 hours Assessment and Plan Assessment: Acute COPD exacerbation, improved Metabolic and toxic encephalopathy Possible aspiration pneumonia Alcohol abuse and withdrawal Hyponatremia possible alcohol-related dementia versus Alzheimer dementia, needed a guardian Plan: This is a pleasant 65 years old female who presents with hypoxia, and AMS. Cont inue with steroids prednisone, continue with Augmentin Director Pharmacy Services on the case for hyponatremia which is resolved Discontinue Ativan, continue with vitamins Patient has Public guardian, family wanted patient to go to senior living for placement post discharge Continue with steroids and monitor oxygen level We'll need ECF for placement on discussed with the family and they agree with this plan Labs and medication were reviewed.. Continue same treatment. Continue with symptomatic treatment. Resume home medication. Monitor lytes and vitals. DVT and GI prophylaxis. Further recommendationsas per clinical course of the patient DVT prophylaxis: Mechanical GI Prophylaxis: Pepcid Prognosis is guarded
[2021-01-02 11:35] LABS: Glucose,Whole Blood 106 mg/dL (75-99)
--- NOTE | 2021-01-02 12:31 | P.PN ---
Subjective Progress Note Date: 01/02/21 Principal diagnosis: COPD exacerbation. This is a 65-year-old white female patient with past medical history of daily EtOH abuse, 2 pack a day smoker, COPD on home oxygen, who came into the emergency department on 12/25/2020 for evaluation of altered mental status area patient was accompanied by her daughter and her brother. Family reported that the patient had a significant history of alcohol abuse and her last drink was that the prior to the ER admission. She seemed very confused, and the confusion continued the next day and patient continued to have an abnormal gait. She was noted to be very short of breath. She does have a history of COPD however does not use any inhalers or nebulizer treatments. Denies history of sick contacts. The daughter stated that patient has been noncompliant with her medications. She denied any reports of chest pain. No fever or chills. No prior history of heart failure. No nausea vomiting or diarrhea, patient has had significant withdrawal from alcohol. Brain CT showed mild atrophy and chronic small vessel ischemia, no acute intracranial abnormality. Chest x-ray showed mild interstitial basilar pulmonary infiltrates. Labs revealed CBC within normal limits, coagulation profile was within normal limits, serum sodium was 116, potassium is 4.3, chloride is 79, CO2 was 25, BUN was 7, creatinine 0.77, serum osmolality was low at 254, AST was 70, ALT was 52, alkaline phosphatase was 76, ammonia level was 20, CK was 248, troponin was less than 0.012, proBNP was 557, urinalysis showed cloudy urine with 1+ protein, moderate blood, large amount of leuks, there were 13 of white cells, and moderate bacteria. Urine osmolality was 236, urine random sodium was less than 10. Urine drug screen was negative, serum alcohol was 45, salicylates was less than 1, acetaminophen level was less than 10, COVID-19 PCR was negative. Patient did have a low-grade fever in the emergency department, she required supplemental oxygen she is currently on 4 L of oxygen. She was 86% on room air, she was quite tachypneic and short of br eath, she was hypertensive, with a blood pressure of 219/105, and very confused. She was given Ativan for possible EtOH withdrawal syndrome, she was started on nebulized bronchodilators, and antibiotics in the form of Rocephin for possibility of aspiration pneumonia. She was also given a dose of Lasix for increased shortness of breath, pulmonary congestion, and she seems to have improved with those interventions. Her blood gas showed pO2 of 70, pCO2 of 65, and pH of 7.28 consistent with acute on chronic hypoxic and hypercapnic respiratory failure. Today's chest x-ray shows mild basilar pulmonary infiltrates and atelectasis improving compared to yesterday's chest x-ray. However she still quite bronchospastic, very congested and short of breath. On 12/27/2020 patient is seen in follow-up on selective care unit. She is resting comfortably in bed, likely on 8 L of oxygen, she did wear BiPAP overnight. She does breathe more comfortably today, appears to be less congestive bronchospastic. She is more awake, and following commands, although remains confused. She does attend get very restless, impulsive and sometimes agitated. She remains on CIWA protocol. Today's labs have been reviewed. BMP was done only, sodium is improving and is up to 134 on today's labs, potassium is 3.9, chloride is 91, CO2 33, BUN of 19, creatinine 0.57, BNP was 557, troponin was negative at less than 0.012. He remains on Zosyn for possibility of aspiration pneumonia. She remains on breathing treatments. Her daughters are at the bedside, they state the patient used to follow with Dr. Gore in the pulmonary clinic however has not seen him in quite some time. They stated the patient is noncompliant, she still drinks and smokes quite extensively. Her home oxygen was taken back by the [facility], patient had not been wearing her hearing it lately. On 12/28/2020 patient seen in follow-up patient is seen in follow-up on selective care unit, she remains confused, she is a bit more lethargic on today's exam, there is congested, she is on 8 L of oxygen pulse ox of 93%, she has a loose congested cough, she is at times able to bring up some tannish colored phlegm. She is afebrile, hemodynamically stable, no BiPAP support last night. Remains on antibiotics in the form of Zosyn, patient is on breathing treatments, remains on IV steroids. She continues on CIWA protocol, she is on Ativan on hold all on as-needed basis. Today's labs have been reviewed serum sodium is improving and is up to 134, potassium is 4.1, chloride is 94, CO2 is 36, B1 is 20, creatinine 0.41. On 12/31/2020 patient seen in follow-up on selective care unit. She is resting comfortably in bed, she is currently on 8 L of oxygen, no worsening dyspnea, appears to be breathing comfortably, no signs of any respiratory distress or use of accessory muscles of breathing. She still confused, however not agitated. She is only oriented to herself, disoriented to place and time. Norvasc was added for elevated blood pressure, patient remains on CIWA protocol, she remains on IV steroids and antibiotics in the form of Zosyn for possibility of aspiration pneumonia, she is less short of breath and less bronchospastic on today's exam. Blood and urine cultures have been negative. On 01/01/2021 patient seen in follow-up on selective care unit, she currently remains on 8 L of oxygen, and her O2 saturations have been around 95-96%, she is awake and alert, although confused, but not agitated, breathing is nonlabored, no wheezing, no cough. She has been afebrile, remains on Zosyn, her last chest x-ray was on 12/30/2020 showing basilar atelectasis. No new labs. No acute events overnight. She received 1 dose of Ativan this morning for a CIWA scale of 6, she seems to be calm, no diaphoresis, no complaints of headaches, no tremors. No dyspnea, no wheezing no use of accessory muscles of breathing. Her microbiology results have been reviewed and remain negative. Progress note dated 01/02/2021. Clinically, the patient looks much better today. She is seen again in room 371. Yesterday, she was on 8 L of oxygen, and she is now been turned down to 3 L. Her saturations are in the low 90s. She is much more awake and alert. When we entered the room, she was watching the [employer] on TV. No new lab data today to report. No chest x-ray. Yesterday, we made a decision to stop the Ativan here in without she was maybe being overly sedated. She is much more awake and alert today than she has been in previous days. Microbiologic studies are negative. Objective - Vital Signs Vital signs: Vital Signs Temp 98.1 F 01/02/21 08:00 Pulse 64 01/02/21 12:22 Resp 18 01/02/21 08:00 BP 118/69 01/02/21 08:00 Pulse Ox 88 L 01/02/21 08:00 Intake & Output 01/01/21 01/02/21 01/02/21 18:59 06:59 18:59 Intake Total 350 240 Output Total 151 1 Balance 199 239 Weight 47 kg Intake: Oral 350 240 Output: Urine 150 Stool 1 1 Other: Voiding Method Diaper Diaper Diaper # Voids 3 1 1 - Exam No acute distress, oriented 3. No respiratory distress, audible wheezing, or use of accessory muscles. HEENT examination is grossly unremarkable. Nasal cannula and place. She's at 3 L. Neck supple. Full range of motion. No adenopathy thyromegaly or neck vein distention. Cardiovascular examination reveals regular rhythm rate. S1-S2 normal. No S3 or S4. No discernible murmur noted. Heart sounds are distant. Heart rate 60 bpm. Lungs reveal few scattered rhonchi. No wheezes or crackles. Breath sounds are equal bilaterally. Breath sounds are much improved. Abdomen soft bowel sounds are heard. No masses or tenderness. Extremities are intact. No cyanosis clubbing or edema. Skin is without rash or lesion. Neurologic examination is brief but nonfocal. - Labs CBC & Chem 7: 12/30/20 09:16 12/30/20 09:16 Labs: Abnormal Lab Results - Last 24 Hours (Table) 01/01/21 01/01/21 01/02/21 Range/Units 16:34 19:47 11:33 POC Glucose (mg/dL) 175 H 122 H 106 H (75-99) mg/dL Microbiology - Last 24 Hours (Table) 12/26/20 12:02 Blood Culture - Final Blood No Growth after 144 hours Assessment and Plan Assessment: #1. Acute on chronic hypoxic and hypercapnic respiratory failure related to acute exacerbation of COPD and possibility of aspiration pneumonia. #2. Altered mental status, brain CT showed no acute intracranial abnormality. This is likely related to acute metabolic encephalopathy related to acute on chronic hypercapnic and hypoxic respiratory failure, aspiration pneumonia, acute exacerbation of COPD, acute EtOH withdrawal and hyponatremia. #3. Acute hyponatremia, possibly hypervolemia, improved with Lasix. Low Sodium is also likely related to chronic EtOH, resolved. #4. Chronic EtOH. #5. Acute EtOH withdrawal, on CIWA protocol, improving. #6. Advanced COPD on home oxygen, underlying baseline lung function is unknown. #7. Medical noncompliance. #8. 2 pack a day smoker. Plan: Plan dated 01/02/2021. The patient's antibiotic was switched to Augmentin yesterday. We switched her IV steroids to oral prednisone. Oxygen was weaned down to 3 L nasal cannula. We should continue breathing treatments. The Ativan was discontinued. Additional recommendations and suggestions are forthcoming. The patient should likely go to a rehab facility or shelter. Overall, she's made significant improvement in the last 24-48 hours. Time with Patient: Less than 30
[2021-01-02 16:45] LABS: Glucose,Whole Blood 172 mg/dL (75-99)
[2021-01-02 20:52] LABS: Glucose,Whole Blood 87 mg/dL (75-99)
[2021-01-03 05:25] VITALS: TEMP 98
[2021-01-03 06:14] LABS: Glucose,Whole Blood 83 mg/dL (75-99)
[2021-01-03] MEDS: INSULIN ASPART (NovoLOG) 100 UNIT/ML VIAL SQ SCH ×2 (06:26→12:18)
[2021-01-03] MEDS: THIAMINE 100 MG TAB PO SCH (06:41)
[2021-01-03] MEDS: IPRATROPIUM-ALBUTEROL 3 ML NEB INHALATION SCH ×3 (08:07→16:28)
[2021-01-03] MEDS: BUDESONIDE 1 MG/2 ML NEBU INHALATION SCH (08:07)
[2021-01-03] MEDS: FORMOTEROL FUMARATE 20 MCG/2 ML NEBU INHALATION SCH (08:07)
[2021-01-03] MEDS: NICOTINE 21MG/24HR PATCH TRANSDERM SCH (08:50)
[2021-01-03] MEDS: AMOXIC-POT CLAV 875-125MG 1 EACH TAB PO SCH (08:51)
[2021-01-03] MEDS: FAMOTIDINE 20 MG TAB PO SCH (08:51)
[2021-01-03] MEDS: predniSONE 20 MG TAB PO SCH (08:51)
[2021-01-03] MEDS: amLODIPine 10 MG TAB PO SCH (08:51)
[2021-01-03] MEDS: NYSTATIN 100,000 UNIT/ML SUSP 500,000 UNIT/5 ML CUP PO SCH ×2 (08:51→12:22)
[2021-01-03] MEDS: HEPARIN SODIUM,PORCINE/PF 5,000 UNIT/0.5 ML SYRINGE SQ SCH (08:51)
[2021-01-03] MEDS: HALOPERIDOL LACTATE 5 MG/ML 1 ML VIAL IM PRN (09:19)
[2021-01-03 11:45] LABS: Glucose,Whole Blood 93 mg/dL (75-99)
--- NOTE | 2021-01-03 12:02 | P.PN ---
Subjective This is a pleasant 65 y old female with past medical history of COPD/asthma: Abuse while she drinks beers daily and smoker about 2 packs per day. He brought by family for unsteady gait and weakness on 12/25. Today when I saw the patient she wishes in the hospital but she could not tell which hospital, she thought this 1973 and she thought the president is jayla also she thought she came to the hospital because she passed out, it looks very lethargic and confused and she does not follow commands with slow response. She is hypoxic on 8 L oxygen via nasal cannula saturating 92%. Patient had low- grade fever of 100 yesterday. Resolved Vitas looks stable Highballer following the case for hyponatremia and she is on D5W at 100 mL by hired worker to slow the rate of correction, today her sodium went up from 130 up to 134, liver enzymes are mildly elevated. TSH is normal at 2.5. CBC from yesterday is unremarkable. BNP is 557. She kept on Zosyn and Solu-Medrol currently. She is on CIWA protocol, she is on Haldol and Ativan as needed. 12/29/2020 Patient today is a little bit more awake and interactive however she is more confused than yesterday to time and place and person, but she couldn't tell she was in the hospital but today she could not know. Denies any specific symptoms however she has right-sided abdominal tenderness which looks mild rebound tenderness, no guarding. Vitals are stable but she needs higher oxygen today at 10 L/m. She is afebrile. Sodium improved to 134. No labs from today On Zosyn, Solu-Medrol and CIWA protocol. She is off IV fluids. Discussed the case with social psychologist, she now has medial public guardian upon request of her family, patient lacks capacity to make medical decision currently per my evaluation 12/30/2020 Patient significantly more awake and alert today, she is oriented to place she goes in the hospital, she knows the year, she is partially oriented to person, she thought her daughter name is Shena when she told me her name is Jaimee when I talked to her. The daughter told me they agree with public guardian and the like her to go to skilled nursing for placement postdischarge. Her blood pressure was elevated today 216/104 due to steroid effect, Norvasc and hydralazine when necessary is added 1 we'll monitor blood pressure. On 8 L oxygen via nasal cannula. Liver enzymes almost normalized and her hemoglobin went up to 17.6. Sodium level normal today at 139. X-ray showing bilateral atelectasis and pulmonary hypertension This remains on some Medrol 60 mg and Zosyn. 12/31/2020 Patient still confused although she is knows that she is at [facility] she told her daughter at bedside Estephania that this is 1972, her daughter corrected her it is 2020, and after 2 minutes when asked her troponin again this 1972. Also she is disoriented to person, she thought her daughter at bedside were negative is Estephania that she is her sister Traci Hutchison and told her that you looks like She remains on 8 L oxygen via nasal cannula with prolonged expiration. Ammonia level less than night. Blood pressure is better controlled at 179/79 after Norvasc was added. Increase Norvasc to 10 mg daily Patient remains on IV some Medrol, 60 mg, Zosyn, CIWA protocol I discussed the case with the daughter at bedside Estephania, she told me that the patient herself from the family and she lives with a boyfriend who is her roommate now, he is taking care of the Bill's but despite that patient cannot do shopping, there is cc and urine all over the place, she is not eating well, she is not showering are take care of her nails are usually she is a clean percent that's why she got a public guardian per family 01/01/2021 Patient is awake but confused, she still on 8 L oxygen via nasal cannula saturating 8%. Blood pressure is 189/110. She's placed on Norvasc 10 mg daily as well as increasing her steroid input. Patient looks clinically more stable Pulmonary service on the case and they made some recommendations, change antibiotics to Augmentin and steroids to prednisone 40 mg. Discontinue Ativan as it may be contributing to confusion. Patient will benefit from an ECF upon discharge for placement 01/02/2021 Patient is a pleasant 65 years old female presents with liver disease and altered mental status which is not acute, patient is to take care of herself at home and currently she has a public guardian p[er family request for looking for placement upon discharge She was hypoxic on admission secondary to COPD, responded to some Medrol and her oxygen is improved 8 down to a 3 L/m today. There was also some evidence of pneumonia which is also improvement and currently she is on Augmentin. Ativan discontinued Hemodynamically she is stable. Chest contaminant on Augmentin, prednisone 40 mg discontinue Ativan discontinue IV. Possibly going to ECF for placement tomorrow if she continued to be stable and improved and 01/03/2021 Patient is more awake today, She Is Knows She Is in the Hospital She Knows the Year but Disoriented to Person For Example Present Is Jayla. Also she is somewhat disoriented to the surrounding. She is tachycardic with heart rate around 130s, she is saturating 86% on 2 L oxygen. Nasal cannula. Yesterday antibiotics were changed to Augmentin and steroids to prednisone 40 mg while Ativan was stopped Repeat chest x-ray is pending. Plan for her is to go to ECF for placement, she has public cardiac Objective - Vital Signs Vital signs: Vital Signs Temp 98 F 01/03/21 04:00 Pulse 136 H 01/03/21 08:33 Resp 18 01/03/21 08:00 BP 134/89 01/03/21 08:00 Pulse Ox 86 L 01/03/21 08:10 Intake & Output 01/02/21 01/03/21 01/03/21 18:59 06:59 18:59 Intake Total 480 0 Output Total 201 550 1 Balance 279 -550 -1 Weight 45.1 kg Intake: Oral 480 0 Output: Urine 200 550 Stool 1 1 Other: Voiding Method Diaper Toilet Toilet Diaper Diaper # Voids 1 1 - Exam -GENERAL: The patient is very confused and lethargic HEENT: Pupils are round and equally reacting to light. EOMI. No scleral icterus. No conjunctival pallor. Normocephalic, atraumatic. No pharyngeal erythema. No thyromegaly. CARDIOVASCULAR: S1 and S2 present. No murmurs, rubs, or gallops. -PULMONARY: Chest is clear to auscultation, cathetered wheezing and crepitation ABDOMEN: Soft, nontender, nondistended, normoactive bowel sounds. No palpable organomegaly. MUSCULOSKELETAL: No joint swelling or deformity. EXTREMITIES: No cyanosis, clubbing, or pedal edema. NEUROLOGICAL: Gross neurological examination did not reveal any focal deficits. SKIN: No rashes. no petechiae. - Labs CBC & Chem 7: 12/30/20 09:16 12/30/20 09:16 Labs: Abnormal Lab Results - Last 24 Hours (Table) 01/02/21 Range/Units 16:43 POC Glucose (mg/dL) 172 H (75-99) mg/dL Assessment and Plan Assessment: Acute COPD exacerbation, improved Metabolic and toxic encephalopathy Possible aspiration pneumonia Alcohol abuse and withdrawal Hyponatremia possible alcohol-related dementia versus Alzheimer dementia, needed a guardian Plan: This is a pleasant 65 years old female who presents with hypoxia, and AMS. Continue with steroids prednisone, continue with Augmentin Highballer on the case for hyponatremia which is resolved Patient is off Ativan. Repeat chest x-ray pending Patient has Public guardian, family wanted patient to go to skilled nursing for placement post discharge Continue with steroids and monitor oxygen level We'll need ECF for placement on discussed with the family and they agree with this plan Labs and medication were reviewed.. Continue same treatment. Continue with symptomatic treatment. Resume home medication. Monitor lytes and vitals. DVT and GI prophylaxis. Further recommendationsas per clinical course of the patient DVT prophylaxis: Mechanical GI Prophylaxis: Pepcid Prognosis is guarded
--- NOTE | 2021-01-03 12:13 | XR ---
EXAMINATION TYPE: XR chest 2V DATE OF EXAM: 01/03/2021 COMPARISON: 12/30/2020 TECHNIQUE: PA and lateral views submitted. HISTORY: Cough possible pneumonia FINDINGS: The lungs are clear and there is no pneumothorax, pleural effusion, or focal pneumonia. Hyperinflat ion noted. Subsegmental changes at the left lung base is stable. Degenerative changes of the spine. C alcified density right upper lobe apex. IMPRESSION: 1. No acute process. COPD correlate for basilar atelectasis favored over pneumonia. Basilar bronchiec tasis also suspected.
[2021-01-03 12:24] VITALS: BP 138/75; PULSE 60; RESP 16
[2021-01-03 12:56] LABS: Basophils % (A) 0 %; Eosinophils % (A) 0 %; HCT 51.2 % (34.0-46.0); Lymphocytes # (A) 0.9 k/uL (1.0-4.8); Lymphocytes % (A) 9 %; MCH 32.3 pg (25.0-35.0); MCHC 33.1 g/dL (31.0-37.0); MCV 97.4 fL (80.0-100.0); Mean Platelet Volume 7.4; Monocytes # (A) 0.4 k/uL (0-1.0); Monocytes % (A) 5 %; Neutrophils # (A) 7.9 k/uL (1.3-7.7); Neutrophils % (A) 84 %; Platelet Count 379 k/uL (150-450); RBC 5.26 m/uL (3.80-5.40); WBC 9.4 k/uL (3.8-10.6)
[2021-01-03 13:08] LABS: ALT 43 U/L (4-34); African American GFR (CKD) >90 (>60 ml/min/1.73 sqM); Albumin 3.7 g/dL (3.5-5.0); Alkaline Phosphatase 54 U/L (38-126); Anion Gap 4 mmol/L; Blood Urea Nitrogen 17 mg/dL (7-17); Calcium 9.2 mg/dL (8.4-10.2); Chloride 90 mmol/L (98-107); Glucose 112 mg/dL (74-99); Non-African American GFR(CKD) >90 (>60 ml/min/1.73 sqM); Sodium 134 mmol/L (137-145); Total Bilirubin 0.6 mg/dL (0.2-1.3); Total Protein 6.5 g/dL (6.3-8.2)
[2021-01-03 13:25] LABS: AST 42 U/L (14-36); Carbon Dioxide 40 mmol/L (22-30); Potassium 4.3 mmol/L (3.5-5.1)
--- NOTE | 2021-01-03 13:58 | P.PN ---
Subjective Progress Note Date: 01/03/21 Principal diagnosis: Acute exacerbation of COPD, aspiration pneumonia This is a 65-year-old white female patient with past medical history of daily EtOH abuse, 2 pack a day smoker, COPD on home oxygen, who came into the emergency department on 12/25/2020 for evaluation of altered mental status area patient was accompanied by her daughter and her brother. Family reported that the patient had a significant history of alcohol abuse and her last drink was that the prior to the ER admission. She seemed very confused, and the confusion continued the next day and patient continued to have an abnormal gait. She was noted to be very short of breath. She does have a history of COPD however does not use any inhalers or nebulizer treatments. Denies history of sick contacts. The daughter stated that patient has been noncompliant with her medications. She denied any reports of chest pain. No fever or chills. No prior history of heart failure. No nausea vomiting or diarrhea, patient has had significant withdrawal from alcohol. Brain CT showed mild atrophy and chronic small vessel ischemia, no acute intracranial abnormality. Chest x-ray showed mild interstitial basilar pulmonary infiltrates. Labs revealed CBC within normal limits, coagulation profile was within normal limits, serum sodium was 116, potassium is 4.3, chloride is 79, CO2 was 25, BUN was 7, creatinine 0.77, serum osmolality was low at 254, AST was 70, ALT was 52, alkaline phosphatase was 76, ammonia level was 20, CK was 248, troponin was less than 0.012, proBNP was 557, urinalysis showed cloudy urine with 1+ protein, moderate blood, large amount of leuks, there were 13 of white cells, and moderate bacteria. Urine osmolality was 236, urine random sodium was less than 10. Urine drug screen was negative, serum alcohol was 45, salicylates was less than 1, acetaminophen level was less than 10, COVID-19 PCR was negative. Patient did have a low-grade fever in the emergency department, she required supplemental oxygen she is currently on 4 L of oxygen. She was 86% on room air, she was quite tachypneic and short of breath, she was hypertensive, with a blood pressure of 219/105, and very confused. She was given Ativan for possible EtOH withdrawal syndrome, she was started on nebulized bronchodilators, and antibiotics in the form of Rocephin for possibility of aspiration pneumonia. She was also given a dose of Lasix for increased shortness of breath, pulmonary congestion, and she seems to have improved with those interventions. Her blood gas showed pO2 of 70, pCO2 of 65, and pH of 7.28 consistent with acute on chronic hypoxic and hypercapnic respiratory failure. Today's chest x-ray shows mild basilar pulmonary infiltrates and atelectasis improving compared to yesterday's chest x-ray. However she still quite bronchospastic, very congested and short of breath. On 12/27/2020 patient is seen in follow-up on selective care unit. She is resting comfortably in bed, likely on 8 L of oxygen, she did wear BiPAP overnight. She does breathe more comfortably today, appears to be less congestive bronchospastic. She is more awake, and following commands, although remains confused. She does attend get very restless, impulsive and sometimes agitated. She remains on CIWA protocol. Today's labs have been reviewed. BMP was done only, sodium is improving and is up to 134 on today's labs, potassium is 3.9, chloride is 91, CO2 33, BUN of 19, creatinine 0.57, BNP was 557, t roponin was negative at less than 0.012. He remains on Zosyn for possibility of aspiration pneumonia. She remains on breathing treatments. Her daughters are at the bedside, they state the patient used to follow with Dr. Gore in the pulmonary clinic however has not seen him in quite some time. They stated the patient is noncompliant, she still drinks and smokes quite extensively. Her home oxygen was taken back by the [facility], patient had not been wearing her hearing it lately. On 12/28/2020 patient seen in follow-up patient is seen in follow-up on selective care unit, she remains confused, she is a bit more lethargic on today's exam, there is congested, she is on 8 L of oxygen pulse ox of 93%, she has a loose congested cough, she is at times able to bring up some tannish colored phlegm. She is afebrile, hemodynamically stable, no BiPAP support last night. Remains on antibiotics in the form of Zosyn, patient is on breathing treatments, remains on IV steroids. She continues on CIWA protocol, she is on Ativan on hold all on as-needed basis. Today's labs have been reviewed serum sodium is improving and is up to 134, potassium is 4.1, chloride is 94, CO2 is 36, B1 is 20, creatinine 0.41. On 12/31/2020 patient seen in follow-up on selective care unit. She is resting comfortably in bed, she is currently on 8 L of oxygen, no worsening dyspnea, appears to be breathing comfortably, no signs of any respiratory distress or use of accessory muscles of breathing. She still confused, however not agitated. She is only oriented to herself, disoriented to place and time. Norvasc was added for elevated blood pressure, patient remains on CIWA protocol, she remains on IV steroids and antibiotics in the form of Zosyn for possibility of aspiration pneumonia, she is less short of breath and less bronchospastic on today's exam. Blood and urine cultures have been negative. On 01/01/2021 patient seen in follow-up on selective care unit, she currently remains on 8 L of oxygen, and her O2 saturations have been around 95-96%, she is awake and alert, although confused, but not agitated, breathing is nonlabored, no wheezing, no cough. She has been afebrile, remains on Zosyn, her last chest x-ray was on 12/30/2020 showing basilar atelectasis. No new labs. No acute e vents overnight. She received 1 dose of Ativan this morning for a CIWA scale of 6, she seems to be calm, no diaphoresis, no complaints of headaches, no tremors. No dyspnea, no wheezing no use of accessory muscles of breathing. Her microbiology results have been reviewed and remain negative. On 01/03/2021 patient is seen in follow-up on selective care unit, she is accompanied to the bed, her daughters are at the bedside, he is awake and alert, she is oriented 2, [address], refusing to answer question about the date. Appears to be breathing comfortably, her only congestion is improving, still has a mildly congested cough, but overall has significantly improved, no significant wheezing today's exam. Follow-up chest x-ray shows COPD and basilar atelectasis, basilar bronchiectasis was also suspected. Clinically patient is improving, follow-up labs were obtained today, white blood cell count is 9.4, hemoglobin is 17, sodium is 134, potassium is 4.3, chloride is 90, CO2 is 40, BUN is 17 creatinine 0.41. Per cardiology results have been reviewed, urine and blood cultures have shown no growth. IV Zosyn has been transitioned to oral Augmentin. She remains on nebulized bronchodilators, IV steroids have been transitioned to oral prednisone. Patient did require FiO2 increased during activity up to 8 L from 2 L, and is currently back down to 3 L and pulse ox is 96%. Objective - Vital Signs Vital signs: Vital Signs Temp 98 F 01/03/21 04:00 Pulse 100 01/03/21 12:15 Resp 16 01/03/21 12:00 BP 138/75 01/03/21 12:00 Pulse Ox 96 01/03/21 12:00 Intake & Output 01/02/21 01/03/21 01/03/21 18:59 06:59 18:59 Intake Total 480 0 Output Total 201 550 1 Balance 279 -550 -1 Weight 45.1 kg Intake: Oral 480 0 Output: Urine 200 550 Stool 1 1 Other: Voiding Method Diaper Toilet Toilet Diaper Diaper # Voids 1 1 1 - Exam GENERAL EXAM: Oriented to self only on today's exam 65-year-old white female, on 3 L of oxygen with a pulse ox of 96%, much more awake, confused but calm, breathing comfortably HEAD: Normocephalic/atraumatic. EYES: Normal reaction of pupils, equal size. Conjunctiva pink, sclera white. NOSE: Clear with pink turbinates. THROAT: No erythema or exudates. NECK: No masses, no JVD, no thyroid enlargement, no adenopathy. CHEST: No chest wall deformity. Symmetrical expansion. LUNGS: Equal air entry with minimal rhonchi CVS: Regular rate and rhythm, normal S1 and S2, no gallops, no murmurs, no rubs ABDOMEN: Soft, nontender. No hepatosplenomegaly, normal bowel sounds, no guard ing or rigidity. EXTREMITIES: No clubbing, no edema, no cyanosis, 2+ pulses and upper and lower extremities. MUSCULOSKELETAL: Muscle strength and tone normal. SPINE: No scoliosis or deformity SKIN: No rashes CENTRAL NERVOUS SYSTEM: Awake and oriented -1. No focal deficits, tone is normal in all 4 extremities. - Labs CBC & Chem 7: 01/03/21 11:46 01/03/21 11:46 Labs: Abnormal Lab Results - Last 24 Hours (Table) 01/02/21 01/03/21 01/03/21 Range/Units 16:43 11:46 11:46 Hgb 17.0 H (11.4-16.0) gm/dL Hct 51.2 H (34.0-46.0) % Neutrophils # 7.9 H (1.3-7.7) k/uL Lymphocytes # 0.9 L (1.0-4.8) k/uL Sodium 134 L (137-145) mmol/L Chloride 90 L (98-107) mmol/L Carbon Dioxide 40 H (22-30) mmol/L Creatinine 0.41 L (0.52-1.04) mg/dL Glucose 112 H (74-99) mg/dL POC Glucose (mg/dL) 172 H (75-99) mg/dL AST 42 H (14-36) U/L ALT 43 H (4-34) U/L Assessment and Plan Plan: Assessment: #1. Acute on chronic hypoxic and hypercapnic respiratory failure related to acute exacerbation of COPD and possibility of aspiration pneumonia #2. Altered mental status, brain CT showed no acute intracranial abnormality. This is likely related to acute metabolic encephalopathy related to acute on chronic hypercapnic and hypoxic respiratory failure, aspiration pneumonia, acute exacerbation of COPD, acute EtOH withdrawal and hyponatremia #3. Acute hyponatremia, possibly hypervolemia, improved with Lasix. Low Sodium is also likely related to chronic EtOH. Resolved #4. Chronic EtOH #5. Acute EtOH withdrawal, on CIWA protocol, improving, #6. Advanced COPD on home oxygen, underlying baseline lung function is unknown #7. Medical noncompliance #8. 2 pack a day smoker Plan: Today's chest x-ray has been reviewed Labs reviewed Clinically patient continues to improve Continue Augmentin Continue oral prednisone and breathing treatments Pulmonary toileting, encouraged deep breathing and coughing Increase activity as tolerated Possible discharge to ECF, dicharge planning has been consulted Stable for discharge to ECF from pulmonary perspective I performed a history & physical examination of the patient and discussed their management with my nurse practitioner, Zuleyma Preston. I reviewed the nurse practitioner's note and agree with the documented findings and plan of care. Lung sounds are positive for diminished breath sounds. The findings and the impression was discussed with the patient. I attest to the documentation by the nurse practitioner. Time with Patient: Less than 30
--- NOTE | 2021-01-03 15:17 | P.DS ---
Providers Date of admission: 12/25/20 19:27 Attending physician: Soledad Estrada Consults: 12/25/20 19:29 Consult Physician Urgent Consulting Provider: Anitha Canales Consult Reason/Comments: acute hyponatremia Do you want consulting provider notified?: Yes 12/26/20 01:36 Consult Physician Urgent Consulting Provider: David Moore Consult Reason/Comments: COPD Do you want consulting provider notified?: Yes, Notify in am Primary care physician: Stated None Hospital Course: Diagnoses: Acute COPD exacerbation, improved Metabolic and toxic encephalopathy Possible aspiration pneumonia Alcohol abuse and withdrawal Hyponatremia possible alcohol-related dementia versus Alzheimer dementia, needed a guardian hospital course: This is a pleasant 65 y old female with past medical history of COPD/asthma, alcohol Abuse while she drinks beers daily and smoker about 2 packs per day. He brought by family for unsteady gait and weakness on 12/25. I discussed the case with the daughter at bedside Estephania, she told me that the patient herself from the family and she lives with a boyfriend who is her roommate now, he is taking care of the Bill's but despite that patient cannot do shopping, there is stool and urine all over the place, she is not eating well, she is not showering are take care of her nails are usually she is a clean percent that's why she got a public guardian per family. Patient will need placement to [facility] upon discharge patient found to have acute COPD exacerbation with acute hypoxia needing 8 L of oxygen per minute also with possible aspiration pneumonia. She was treated with some Medrol and Zosyn, her confusion improved and more awake now with agitated at times. She has no or minimal respiratory symptoms upon discharge. She is saturating in 96% repeat chest x-ray from today: Repeat chest x-ray from today: No acute process. COPD. Correlate for basilar atelectasis favored over pneumonia. Basilar bronchiectasis also suspected Patient is afebrile, no leukocytosis. Labs including CBC and BMP and liver enzymes look stable today. Patient was cleared for discharge by cardiology, nephrology and pulmonary services Problems and management plan were discussed with the patient and he verbalized understanding and acceptance Patient was found stable and can be discharged home however he needs follow-up as an outpatient. Patient was instructed to follow up with PCP within one week and patient agrees Physical exam -Gen: patient is a AAOx1-2, no distress CVS: S1-S2, RRR, no murmur -Lungs: B/L CTA, no wheezing. Nasal cannula is in place Abdomen: soft, no distention, no tenderness, positive bowel sounds Extremity: no leg edema or induration Time spent more than 35 minutes Patient Condition at Discharge: Serious Plan - Discharge Summary Discharge Rx Participant: Yes New Discharge Prescriptions: New Amoxic-Pot Clav 875-125Mg [Augmentin 875-125] 1 each PO Q12HR #8 tab Ipratropium-Albuterol Nebulize [Duoneb 0.5 mg-3 mg/3 ml Soln] 3 ml INHALATION RT-QID ml Ipratropium-Albuterol Nebulize [Duoneb 0.5 mg-3 mg/3 ml Soln] 3 ml INHALATION RT-Q2H PRN ml PRN Reason: Shortness Of Breath Or Wheezing haloperidoL [Haldol] 4 mg PO BID PRN #6 tablet PRN Reason: Agitation Or Acute Psychosis Nystatin 100,000 Unit/ml Susp [Mycostatin Oral Susp] 500,000 unit PO QID 3 Days #1 bottle INSULIN ASPART (NovoLOG) [NovoLOG (formulary)] 0 unit SQ ACHS vial Famotidine [Pepcid] 20 mg PO Q12HR tab Thiamine [Vitamin B-1] 100 mg PO BID-W/MEALS tab hydrALAZINE HCL [Apresoline] 25 mg PO QID PRN tab PRN Reason: Blood Pressure - High amLODIPine [Norvasc] 10 mg PO DAILY tab Formoterol Fumarate [Perforomist] 20 mcg INHALATION RT-BID nebu predniSONE 10 mg PO DIRECTED #40 tab Budesonide [Pulmicort] 1 mg INHALATION RT-BID ml Discharge Medication List Amoxic-Pot Clav 875-125Mg [Augmentin 875-125] 1 each PO Q12HR #8 tab 01/03/21 [Rx] Budesonide [Pulmicort] 1 mg INHALATION RT-BID ml 01/03/21 [Rx] Famotidine [Pepcid] 20 mg PO Q12HR tab 01/03/21 [Rx] Formoterol Fumarate [Perforomist] 20 mcg INHALATION RT-BID nebu 01/03/21 [Rx] INSULIN ASPART (NovoLOG) [NovoLOG (formulary)] 0 unit SQ ACHS vial 07/26/21 [Rx] Ipratropium-Albuterol Nebulize [Duoneb 0.5 mg-3 mg/3 ml Soln] 3 ml INHALATION RT -Q2H PRN ml 01/03/21 [Rx] Ipratropium-Albuterol Nebulize [Duoneb 0.5 mg-3 mg/3 ml Soln] 3 ml INHALATION RT-QID ml 01/03/21 [Rx] Nystatin 100,000 Unit/ml Susp [Mycostatin Oral Susp] 500,000 unit PO QID 3 Days #1 bottle 01/03/21 [Rx] Thiamine [Vitamin B-1] 100 mg PO BID-W/MEALS tab 01/03/21 [Rx] amLODIPine [Norvasc] 10 mg PO DAILY tab 01/03/21 [Rx] haloperidoL [Haldol] 4 mg PO BID PRN #6 tablet 01/03/21 [Rx] hydrALAZINE HCL [Apresoline] 25 mg PO QID PRN tab 01/03/21 [Rx] predniSONE 10 mg PO DIRECTED #40 tab 01/03/21 [Rx] Follow up Appointment(s)/Referral(s): None,Stated [Primary Care Provider] - 1-2 days Patient Instructions/Handouts: Seizure/Epilepsy Discharge Instructions & Follow-Up, Opioid Withdrawal (DC)
== END 2021-01-03 17:08 | DRG 177 ==
LOC: EC 15:52 → EEVIPCON 19:27 → 3SCARD 19:27
PROVIDERS: ADMIT Hospitalist; ATTEND Hospitalist
PROC: 5A09357 Assistance with Respiratory Ventilation, Less than 24 Consecutive Hours, Continuous Positive Airway Pressure (ICD-10-PCS; principal; 2020-12-26)
DX: J69.0 Pneumonitis due to inhalation of food and vomit (principal); J96.22 Acute and chronic respiratory failure with hypercapnia; J96.21 Acute and chronic respiratory failure with hypoxia; G92 Toxic encephalopathy; F02.81 Dementia in other diseases classified elsewhere, unspecified severity, with behavioral disturbance; F10.27 Alcohol dependence with alcohol-induced persisting dementia; M62.82 Rhabdomyolysis; J98.11 Atelectasis; E87.1 Hypo-osmolality and hyponatremia; J44.1 Chronic obstructive pulmonary disease with (acute) exacerbation; N39.0 Urinary tract infection, site not specified; F10.131 Alcohol abuse with withdrawal delirium; I27.20 Pulmonary hypertension, unspecified; G30.9 Alzheimer's disease, unspecified; F10.129 Alcohol abuse with intoxication, unspecified; Z66 Do not resuscitate; Z20.822 Contact with and (suspected) exposure to COVID-19; K70.10 Alcoholic hepatitis without ascites; I10 Essential (primary) hypertension; K76.9 Liver disease, unspecified; T38.0X5A Adverse effect of glucocorticoids and synthetic analogues, initial encounter; T50.916A Underdosing of multiple unspecified drugs, medicaments and biological substances, initial encounter; Z91.128 Patient's intentional underdosing of medication regimen for other reason; Y90.2 Blood alcohol level of 40-59 mg/100 ml; R26.9 Unspecified abnormalities of gait and mobility; J30.2 Other seasonal allergic rhinitis; F17.210 Nicotine dependence, cigarettes, uncomplicated; Z71.6 Tobacco abuse counseling; Z99.81 Dependence on supplemental oxygen; Z78.1 Physical restraint status; Z87.828 Personal history of other (healed) physical injury and trauma; Z87.81 Personal history of (healed) traumatic fracture; Z90.710 Acquired absence of both cervix and uterus; Z90.49 Acquired absence of other specified parts of digestive tract; Z87.19 Personal history of other diseases of the digestive system; Z87.01 Personal history of pneumonia (recurrent); Z87.42 Personal history of other diseases of the female genital tract; Z98.1 Arthrodesis status; Z88.6 Allergy status to analgesic agent; Z83.3 Family history of diabetes mellitus; Z82.49 Family history of ischemic heart disease and other diseases of the circulatory system
CPT/HCPCS: 36415; 36600; 70450; 71045; 71046; 80048; 80053; 80143; 80179; 80306; 80320; 81001; 82140; 82550; 82805; 83605; 83735; 83880; 83930; 83935; 84295; 84300; 84443; 84484; 85025; 85610; 85730; 87040; 87086; 87635; 93005; 94640; 94660; 94760; 99291

== ENCOUNTER → 2021-07-15 | Outpatient (CLI) | payer MEDICARE, OTHER | END | disposition home or self-care (01) | LOC: LABWHC1 15:53 | PROVIDERS: ATTEND Psychiatry & Neurology Neurology | DX: G62.9 Polyneuropathy, unspecified (principal) | CPT/HCPCS: 36415; 82306; 82607; 83540; 84207; 84425 ==

== ENCOUNTER → 2022-03-27 | Outpatient (CLI) | payer MEDICARE, OTHER ==
[2022-03-27 07:49] LABS: African American GFR (CKD) >90 (>60 ml/min/1.73 sqM); Blood Urea Nitrogen 15 mg/dL (7-17); Non-African American GFR(CKD) >90 (>60 ml/min/1.73 sqM)
--- NOTE | 2022-03-27 08:33 | CT ---
EXAMINATION TYPE: CT abdomen w con DATE OF EXAM: 03/27/2022 COMPARISON: Left-sided Abdominal pain. HISTORY: left side pain x3 weeks. surgical hx of APPY, partial hystero, pelvic fusion CT DLP: 363.20 mGycm Automated exposure control for dose reduction was used. TECHNIQUE: Helical acquisition of images was performed from the lung bases through the top of iliac crest to include entire abdomen. CONTRAST: Performed with Oral Contrast and with IV Contrast, patient injected with 64mL mL of Isovue 300. FINDINGS: LUNG BASES: Slightly elevated left hemidiaphragm with left greater than right bibasilar atelectasis a nd/or perhaps limited consolidation. LIVER/GB: No significant abnormality is appreciated. PANCREAS: No significant abnormality is seen. SPLEEN: No significant abnormality is seen. ADRENALS: No significant abnormality is seen. KIDNEYS: No significant abnormality is seen. BOWEL: Oral contrast does not reach colonic level. No suspicious small or large bowel dilatation. LYMPH NODES: No significant abnormality is seen. OSSEOUS STRUCTURES: Surgical change to the pelvis is partially imaged. Slight scoliotic curvature to the lumbar spine is present. FREE AIR: No free air is visualized. OTHER: Moderate to severe mixed plaque of the abdominal aorta extends into branch vessels. Some ectas ia is seen distally with greater than 3.0 cm aneurysm. Small fat-containing umbilical hernia. IMPRESSION: No bowel obstruction. No acute findings are evident
== END | disposition home or self-care (01) ==
LOC: RADCTMAIN 07:11
PROVIDERS: ATTEND Physical Medicine & Rehabilitation Pain Medicine
DX: R10.9 Unspecified abdominal pain (principal)
CPT/HCPCS: 82565; 84520; 74160; 36415; Q9967